=== PATIENT | male | born 1930 | race African-American/Black ===

== ENCOUNTER 2016-04-24 12:27 | Emergency (ER) | payer MEDICARE, OTHER ==
[~2016-04-24] VITALS: Ht 172.7 cm; Wt 49.4 kg
[~2016-04-24 12:27] MED LIST: AMLO10TA2 PO; BENZ2TAB5 PO; GLIP5TAB22 PO; HALO2TAB PO; HYDR-971 PO; INDA2.5T PO; SERT25TA PO
--- NOTE | 2016-04-24 14:05 | PHYS DOC ---
Past Medical History Past Medical History: Cancer, CVA, Diabetes-Type II, Hypertension, Schizophrenia Additional Past Medical Histor: prostate ca Past Surgical History: Hip Replacement Additional Past Surgical Histo: prostate Alcohol Use: Occasionally Drug Use: None Adult General Chief Complaint Chief Complaint: HYPERTENSION HPI HPI Patient is a 85 year old male who presents with hypertension. The patient is accompanied by a family member and silk spotter who states that the patient was having elevated blood pressures this morning about 200 systolic. Patient has history of CVA, schizophrenia, hypertension, and prostate cancer. The patient's silk spotter states that the patient has not been complaining of any symptoms. Due to high blood pressure, the silk spotter gave the patient an extra dose of his normal blood pressure medication. Patient's blood pressure is currently normal in the emergency department. The patient denies any complaints and the patient' s silk spotter states that the patient is at his baseline. The silk spotter is not able to identify what medication was given this morning by name. Review of Systems Review of Systems Constitutional: Denies fever or chills [] Eyes: Denies change in visual acuity, redness, or eye pain [] HENT: Denies nasal congestion or sore throat [] Respiratory: Denies cough or shortness of breath [] Cardiovascular: No additional information not addressed in HPI [] GI: Denies abdominal pain, nausea, vomiting, bloody stools or diarrhea [] : Denies dysuria or hematuria [] Musculoskeletal: Denies back pain or joint pain [] Integument: Denies rash or skin lesions [] Neurologic: Chronic left-sided hemiplegia, no new deficits [] Endocrine: Denies polyuria or polydipsia [] Allergies Allergies Allergies Coded Allergies Type Severity Reaction Last Updated Verified No Known Drug Allergies 09/24/14 No Physical Exam Physical Exam Constitutional: Alert, afebrile, appears in a chronically debilitated state. [] HENT: Normocephalic, atraumatic, bilateral external ears normal, oropharynx moist, adentulate, no oral exudates, nose normal. [] Eyes: PERRLA, EOMI, conjunctiva normal, no discharge. [] Neck: Normal range of motion, no tenderness, supple, no stridor. [] Cardiovascular:Heart rate regular rhythm, no murmur [] Lungs & Thorax: Bilateral breath sounds clear to auscultation [] Abdomen: Bowel sounds normal, soft, no tenderness, no masses, no pulsatile masses. [] Skin: Warm, dry, no erythema, no rash. [] Back: No tenderness, no CVA tenderness. [] Extremities: No tenderness, no cyanosis, no clubbing, ROM intact, no edema. [] Neurologic: Alert, oriented X 3, chronic left-sided hemiplegia. [] Current Patient Data Vital Signs Vital Signs Date Time Temp Pulse Resp B/P Pulse Ox O2 Delivery O2 Flow Rate FiO2 04/24/16 14:28 70 18 135/77 97 Room Air 04/24/16 13:08 98.9 98.9 EKG EKG Not performed [] Radiology/Procedures Radiology/Procedures Not performed [] Course & Med Decision Making Course & Med Decision Making Pertinent Labs and Imaging studies reviewed. (See chart for details) Patient currently asymptomatic. Since the patient's silk spotter is unable to identify the blood pressure medication and he gave this morning and the patient was found to be on amlodipine and indapamide, I recommended that the patient follow-up with his primary doctor in the next 2 days for reevaluation of the patient's blood pressure medications and possible need for increase in dosage or change. I did advise patient silk spotter to return to the emergency department with the patient if he does develop any significant symptoms with hypertension including headache, altered mental status, chest pain, shortness of breath, or any other worrisome symptoms. His silk spotter voiced understanding and in agreement with treatment plan. Dragon Disclaimer Dragon Disclaimer This electronic medical record was generated, in whole or in part, using a voice recognition dictation system. Departure Departure Impression: Primary Impression: Essential hypertension Disposition: 01 HOME, SELF-CARE Condition: STABLE Referrals: SABINE PATTERSON (PCP) Patient Instructions: Hypertension Additional Instructions: Follow-up with your primary doctor in 2 days. Return to emergency department for any worsening symptoms. GEORGE HALL MD Apr 24, 2016 14:05
[2016-04-24 14:28] VITALS: BP 135/77
== END 2016-04-24 14:33 | disposition home or self-care (01) ==
LOC: ER 12:27
DX: I10 Essential (primary) hypertension (principal); G81.94 Hemiplegia, unspecified affecting left nondominant side; F20.9 Schizophrenia, unspecified; E11.9 Type 2 diabetes mellitus without complications; Z86.73 Personal history of transient ischemic attack (TIA), and cerebral infarction without residual deficits
CPT/HCPCS: 99284

== ENCOUNTER 2016-10-04 16:32 | Inpatient (IN) | payer MEDICARE, OTHER ==
[2016-10-04] VITALS (17 sets, daily range): BP systolic 79–120; BP diastolic 35–72
[~2016-10-04] VITALS: Ht 170.2 cm; Wt 50.4 kg
[2016-10-04] MEDS ORDERED: NOREPINEPHRIN PREMIX 250 ML IV ONE (16:45)
[2016-10-04] MEDS ORDERED: IV NORMAL SALINE 1000ML BAG 1,000 ML IV ONE ×3 (16:45→17:30)
[2016-10-04] MEDS ORDERED: PIPERACILLIN/TAZOBACTAM 3.375 GM in IV NORMAL SALINE 50ML 50 ML IV ONE (16:45)
[2016-10-04 16:59] LABS: BASO % 0 % (0-3); EOS % 0 % (0-3); HEMATOCRIT 23.2 % (39.0-53.0); HEMOGLOBIN 7.3 g/dL (13.0-17.5); LYMPH # 0.4 x10^3/uL (1.0-4.8); LYMPH % 8 % (24-48); MEAN CORPUSCULAR HEMOGLOBIN 27 pg (25-35); MEAN CORPUSCULAR HGB CONC 31 g/dL (31-37); MEAN CORPUSCULAR VOLUME 88 fL (79-100); MONO % 2 % (0-9); NEUT % 90 % (31-73); PLATELET COUNT 244 x10^3/uL (140-400); RED BLOOD COUNT 2.64 x10^6/uL (4.30-5.70); RED CELL DISTRIBUTION WIDTH 14.5 % (11.5-14.5); WHITE BLOOD COUNT 5.4 x10^3/uL (4.0-11.0)
[2016-10-04] MEDS ORDERED: ALBUTEROL SULFATE 2.5 MG/3 ML NEBU. NEB ONE (17:00)
[2016-10-04] MEDS ORDERED: INSULIN REGULAR 100 UNIT/ML 10ML VIAL. IV ONE (17:00)
[2016-10-04] MEDS ORDERED: CALCIUM GLUCONATE 1,000 MG/10 ML VIAL. IV ONE (17:00)
[2016-10-04 17:06] LABS: INR 1.7 (0.8-1.1); PROTHROMBIN TIME PATIENT 18.7 SEC (11.7-14.0)
--- NOTE | 2016-10-04 17:12 | RAD ---
AP portable chest radiograph 10/04/2016 Clinical History: Unresponsive. An AP portable erect digital radiograph of the chest was obtained. Comparison study is dated 09/24/2014. The cardiac silhouette is mildly enlarged. The thoracic aorta is tortuous. Atherosclerotic calcification of the thoracic aorta is seen. Emphysematous changes are seen involving both lungs. A 5 mm calcified granuloma is seen involving the left lower lobe, unchanged. No acute pulmonary infiltrate is seen. No pleural effusion or pneumothorax is noted. Degenerative changes are seen involving the thoracic spine. Impression: No acute abnormality is seen.
[2016-10-04] MEDS ORDERED: PANTOPRAZOLE IV PUSH 40 MG VIAL. IVP ONE (17:15)
[2016-10-04 17:18] LABS: NUCLEATED RBC 2
[2016-10-04 17:22] LABS: PLT ESTIMATE ADEQUATE (ADEQUATE); SCHISTOCYTES OCC; TOXIC GRANULATION MOD; TOXIC VACUOLATION SLIGHT
[2016-10-04 17:25] LABS: BILIRUBIN,URINE NEGATIVE (NEG); GLUCOSE,URINE NEGATIVE (NEG); NITRITE,URINE POSITIVE (NEG); PROTEIN,URINE >=300 mg/dL (NEG-TRACE); UROBILINOGEN,URINE 0.2 mg/dL (0.2 mg/dL)
[2016-10-04 17:30] LABS: NEG OBC FOB NEG; POS OBC FOB POS
[2016-10-04] MEDS ORDERED: ONDANSETRON PF 4 MG/2 ML VIAL. IV PRN ×2 (17:30→18:41)
[2016-10-04] MEDS ORDERED: VANCOMYCIN 1GM IVPB FOR OMNI 250 ML IV ONE (17:30)
[2016-10-04 17:31] LABS: ETHANOL < 10 mg/dL (0-10)
[2016-10-04 17:31] LABS: BASE EXCESS COOX -23 mmol/L (-3-3); CARBON MONOXIDE 2.8 % (0.0-1.9); HCO3 COOX 6 mmol/L (21-28); METHEMOGLOBIN 0.3 % (0.0-1.9); OXYHEMOGLOBIN 96.1 %; PCO2 COOX 24 mmHg (35-46); PO2 COOX 342 mmHg (65-108); SAT O2 COOX 99 % (92-99); TOTAL HEMOGLOBIN 5.3 g/dL
[2016-10-04 17:34] LABS: ALBUMIN 1.8 g/dL (3.4-5.0); ALBUMIN/GLOBULIN RATIO 0.5 (1.0-1.7); CALCIUM 8.1 mg/dL (8.5-10.1); CREATININE 7.6 mg/dL (0.7-1.3); GFR 8.3; MAGNESIUM 3.1 mg/dL (1.8-2.4); TOTAL BILIRUBIN 0.4 mg/dL (0.2-1.0); TOTAL PROTEIN 5.4 g/dL (6.4-8.2)
[2016-10-04 17:35] LABS: BACTERIA,URINE MANY /HPF (0-FEW); RBC,URINE TNTC /HPF (0-2); SQUAMOUS EPITHELIAL CELL,UR OCC /LPF; WBC,URINE TNTC /HPF (0-4)
[2016-10-04 17:38] LABS: CORRECTED PCO2 COOX 20 mmHg; CORRECTED PH COOX 7.05; CORRECTED PO2 COOX 321 mmHg
[2016-10-04 17:38] LABS: POTASSIUM 7.4 mmol/L (3.5-5.1)
[2016-10-04] MEDS ORDERED: SODIUM BICARBONATE VIAL 150 MEQ in IV DEXTROSE 5% 1,000 ML IV ONE (17:45)
[2016-10-04 18:03] LABS: BARBITURATES NEG (NEG); BENZODIAZEPINES NEG (NEG); CANNABINOIDS NEG (NEG); COCAINE NEG (NEG); METHADONE NEG (NEG); OPIATES NEG (NEG); PHENCYCLIDINE NEG (NEG)
--- NOTE | 2016-10-04 18:18 | PHYS DOC ---
Past Medical History Past Medical History: Cancer, CVA, Diabetes-Type II, Hypertension, Schizophrenia Additional Past Medical Histor: prostate ca Past Surgical History: Hip Replacement Additional Past Surgical Histo: prostate Alcohol Use: Occasionally Drug Use: None Adult General Chief Complaint Chief Complaint: ALTERED MENTAL STATUS HPI HPI Patient is a 85 year old male presenting to the emergency department asked her STEMI however EKG does not appear consistent with STEMI for me spoke to the electrical equipment tester Dr. Aviles and this was canceled. Patient is unable to provide any history so history is obtained for her brother and he says the patient has prostate cancer and is usually interactive and oriented however over the past 2 days he has been doing worse and less active. Patient is breathing on his own however he he will not follow commands. He is cool to the touch and quite hypotensive with no peripheral pulses palpated. I spoke to the brother and he said he does not want the patient intubated but he would be okay with chest compressions if his heart stopped. Patient is chronically and acutely ill- appearing as he is thin frail. Review of Systems Review of Systems Unable to obtain due to mental status and medical condition Current Medications Current Medications Current Medications Medications (Trade) Dose Ordered Sig/Teagan Start Time Stop Time Status Last Admin Dose Admin Albuterol Sulfate (Ventolin Neb Soln) 2.5 mg 1X ONCE 10/04/16 17:00 10/04/16 17:01 DC 10/04/16 17:08 2.5 MG Calcium Gluconate (Calcium Gluconate) 1,000 mg 1X ONCE 10/04/16 17:00 10/04/16 17:01 DC 10/04/16 16:57 1,000 MG Insulin Human Regular (NovoLIN R VIAL) 10 unit 1X ONCE 10/04/16 17:00 10/04/16 17:01 DC 10/04/16 16:59 10 UNIT Norepinephrine Bitartrate 250 ml @ 0 mls/hr 1X ONCE 10/04/16 16:45 10/04/16 16:50 DC 10/04/16 16:55 1.9 MLS/HR Ondansetron HCl (Zofran) 4 mg PRN Q8HRS PRN 10/04/16 17:30 10/05/16 17:29 Pantoprazole Sodium (Protonix Vial) 40 mg 1X ONCE 10/04/16 17:15 10/04/16 17:16 DC 10/04/16 17:12 40 MG Piperacillin Sod/ Tazobactam Sod 3.375 gm/Sodium Chloride 50 ml @ 100 mls/hr 1X ONCE 10/04/16 16:45 10/04/16 17:14 DC 10/04/16 16:57 100 MLS/HR Sodium Chloride 1,000 ml @ 1,000 mls/hr 1X ONCE 10/04/16 17:30 10/04/16 18:29 10/04/16 17:30 1,000 MLS/HR Vancomycin HCl 250 ml @ 250 mls/hr 1X ONCE 10/04/16 17:30 10/04/16 18:29 Allergies Allergies Allergies Coded Allergies Type Severity Reaction Last Updated Verified No Known Drug Allergies 09/24/14 No Physical Exam Physical Exam Constitutional: Chronically and acutely ill-appearing HENT: Normocephalic, atraumatic Eyes: PERRLA Neck: Normal range of motion, no tenderness, supple, no stridor. [] Cardiovascular:Heart rate regular rhythm Lungs & Thorax: Bilateral breath sounds present Abdomen: Bowel sounds normal, soft, no tenderness, no masses, no pulsatile masses. Blood noted on rectal temp probe Skin: Cool and pale Back: No tenderness, no CVA tenderness. [] Extremities: Faint peripheral pulses] Neurologic: Alert and oriented X 0, appears to be moving extremities Current Patient Data Vital Signs Vital Signs Date Time Temp Pulse Resp B/P (MAP) Pulse Ox O2 Delivery O2 Flow Rate FiO2 10/04/16 17:09 NonRebreather Mask 10/04/16 16:33 91.8 72 24 88/39 (55) 99 91.8 Lab Values Laboratory Tests Test 10/04/16 16:36 10/04/16 16:45 10/04/16 17:11 10/04/16 17:30 White Blood Count 5.4 x10^3/uL (4.0-11.0) Red Blood Count 2.64 x10^6/uL (4.30-5.70) L Hemoglobin 7.3 g/dL (13.0-17.5) L Hematocrit 23.2 % (39.0-53.0) L Mean Corpuscular Volume 88 fL (79-100) Mean Corpuscular Hemoglobin 27 pg (25-35) Mean Corpuscular Hemoglobin Concent 31 g/dL (31-37) Red Cell Distribution Width 14.5 % (11.5-14.5) Platelet Count 244 x10^3/uL (140-400) Neutrophils (%) (Auto) 90 % (31-73) H Lymphocytes (%) (Auto) 8 % (24-48) L Monocytes (%) (Auto) 2 % (0-9) Eosinophils (%) (Auto) 0 % (0-3) Basophils (%) (Auto) 0 % (0-3) Neutrophils # (Auto) 4.9 x10^3uL (1.8-7.7) Lymphocytes # (Auto) 0.4 x10^3/uL (1.0-4.8) L Monocytes # (Auto) 0.1 x10^3/uL (0.0-1.1) Eosinophils # (Auto) 0.0 x10^3/uL (0.0-0.7) Basophils # (Auto) 0.0 x10^3/uL (0.0-0.2) Segmented Neutrophils % 75 % (35-66) H Band Neutrophils % 15 % (0-9) H Lymphocytes % 7 % (24-48) L Monocytes % 2 % (0-10) Metamyelocytes % 1 % (0-0) H Nucleated Red Blood Cells 2 Toxic Granulation Mod Toxic Vacuolation Slight Platelet Estimate Adequate (ADEQUATE) Schistocytes Occ Prothrombin Time 18.7 SEC (11.7-14.0) H Prothrombin Time INR 1.7 (0.8-1.1) H PTT 52 SEC (24-38) H Sodium Level 133 mmol/L (136-145) L Potassium Level 7.4 mmol/L (3.5-5.1) *H Chloride Level 100 mmol/L (98-107) Carbon Dioxide Level 10 mmol/L (21-32) *L Anion Gap 23 (6-14) H Blood Urea Nitrogen 208 mg/dL (8-26) H Creatinine 7.6 mg/dL (0.7-1.3) H Estimated GFR (Cockcroft-Gault) 8.3 BUN/Creatinine Ratio 27 (6-20) H Glucose Level 443 mg/dL (70-99) H Lactic Acid Level 6.2 mmol/L (0.4-2.0) *H Calcium Level 8.1 mg/dL (8.5-10.1) L Magnesium Level 3.1 mg/dL (1.8-2.4) H Total Bilirubin 0.4 mg/dL (0.2-1.0) Aspartate Amino Transferase (AST) 481 U/L (15-37) H Alanine Aminotransferase (ALT) 284 U/L (16-63) H Alkaline Phosphatase 95 U/L (46-116) Ammonia 193 mcmol/L (11-34) H Creatine Kinase 132 U/L (39-308) Troponin I Quantitative < 0.017 ng/mL (0.000-0.055) IW-Nbs-G-Type Natriuretic Peptide 508 pg/mL (0-449) H Total Protein 5.4 g/dL (6.4-8.2) L Albumin 1.8 g/dL (3.4-5.0) L Albumin/Globulin Ratio 0.5 (1.0-1.7) L Lipase 190 U/L (73-393) Thyroid Stimulating Hormone (TSH) 5.685 uIU/mL (0.358-3.74) H Salicylates Level < 2.8 mg/dL (2.8-20.0) L Salicylate Last Dose Date Salicylate Last Dose Time Acetaminophen Level 4.97 mcg/ml (10-30) L Acetaminophen Last Dose Date Acetaminophen Last Dose Time Ethyl Alcohol Level < 10 mg/dL (0-10) Stool Occult Blood Positive (NEG) Urine Collection Type U cath Urine Color Brown Urine Clarity Turbid Urine pH 8.0 Urine Specific [place] 1.020 Urine Protein >=300 mg/dL (NEG-TRACE) Urine Glucose (UA) Negative mg/dL (NEG) Urine Ketones (Stick) Trace mg/dL (NEG) Urine Blood Large (NEG) Urine Nitrite Positive (NEG) Urine Bilirubin Negative (NEG) Urine Urobilinogen Dipstick 0.2 mg/dL (0.2 mg/dL) Urine Leukocyte Esterase Large (NEG) Urine RBC Tntc /HPF (0-2) Urine WBC Tntc /HPF (0-4) Urine Squamous Epithelial Cells Occ /LPF Urine Bacteria Many /HPF (0-FEW) Urine Mucus Marked /LPF Urine Opiates Screen Neg (NEG) Urine Methadone Screen Neg (NEG) Urine Barbiturates Neg (NEG) Urine Phencyclidine Screen Neg (NEG) Urine Amphetamine/Methamphetamine Neg (NEG) Urine Benzodiazepines Screen Neg (NEG) Urine Cocaine Screen Neg (NEG) Urine Cannabinoids Screen Neg (NEG) Urine Ethyl Alcohol Neg (NEG) O2 Saturation 99 % (92-99) Arterial Blood pH 7.00 (7.35-7.45) *L Arterial Blood pH (Temp corrected) 7.05 Arterial Blood pCO2 at Patient Temp 24 mmHg (35-46) L Arterial Blood pCO2 (Temp correct) 20 mmHg Arterial Blood pO2 at Patient Temp 342 mmHg (65-108) H Arterial Blood pO2 (Temp corrected) 321 mmHg Arterial Blood HCO3 6 mmol/L (21-28) L Arterial Blood Base Excess -23 mmol/L (-3-3) L Oxyhemoglobin 96.1 % Methemoglobin 0.3 % (0.0-1.9) Carbon Monoxide, Quantitative 2.8 % (0.0-1.9) H FiO2 100.0 Laboratory Tests 10/04/16 16:36 Laboratory Tests 10/04/16 16:36 EKG EKG Sinus cardia at 52 bpm with peaked T waves in leads V3 and V4 with slightly widened QRS. No ST elevation consecutive leads. Radiology/Procedures Radiology/Procedures AP portable chest radiograph 10/04/2016 Clinical History: Unresponsive. An AP portable erect digital radiograph of the chest was obtained. Comparison study is dated 09/24/2014. The cardiac silhouette is mildly enlarged. The thoracic aorta is tortuous. Atherosclerotic calcification of the thoracic aorta is seen. Emphysematous changes are seen involving both lungs. A 5 mm calcified granuloma is seen involving the left lower lobe, unchanged. No acute pulmonary infiltrate is seen. No pleural effusion or pneumothorax is noted. Degenerative changes are seen involving the thoracic spine. Impression: No acute abnormality is seen. DICTATED and SIGNED BY: RICHI REYNA MD DATE: 10/04/16 2381 Course & Med Decision Making Course & Med Decision Making Patient is very ill and requiring multiple interventions and his prognosis is quite poor and this was communicated to his brother. He says that he makes medical decisions for the patient. Patient was given multiple liters of fluid in addition to broad-spectrum antibiotics and blood is ordered. He was also given calcium for his hyperkalemia in addition to insulin and bicarbonate containing fluids. We will respect wishes and not intubated this time but he is on norepinephrine for his blood pressure which did help moderately. I spoke to the abrasive grader on-call and he agreed with admission but will defer dialysis at this time. Patient admitted in critical condition. Critical care time of 50 minutes. Dragon Disclaimer Dragon Disclaimer This electronic medical record was generated, in whole or in part, using a voice recognition dictation system. Departure Departure Impression: Primary Impression: Renal failure Additional Impressions: Hyperkalemia Septic shock Encephalopathy acute GI bleed Anemia Disposition: ADMITTED INPATIENT Admitting Physician: Brandy Flowers Condition: CRITICAL Referrals: SABINE PATTERSON (PCP) Problem Qualifiers KB BAKER DO Oct 04, 2016 18:18
--- NOTE | 2016-10-04 18:36 | RAD ---
CT head without intravenous contrast History: Found unresponsive at home. Last seen 2 days ago. Comparison: CT head December 08, 2015. Technique: Axial images are obtained of the head from the skull base through the vertex without IV contrast. Exposure: One or more of the following individualized dose reduction techniques were utilized for this examination: 1. Automated exposure control 2. Adjustment of the mA and/or kV according to patient size 3. Use of iterative reconstruction technique Findings: The ventricles are appropriate in size, shape, and location for the patient's age. No obvious intracranial mass, mass-effect, midline shift, hemorrhage or obvious acute infarction is identified. Basilar cisterns are patent. Patchy, nonspecific white matter low attenuation is seen, probably from chronic microvascular ischemic disease. Bone windows demonstrate no acute calvarial abnormality. The visualized paranasal sinuses appear clear. Old right medial orbital wall fracture is seen. Opacification of a left ethmoid air cell. Impression: 1. No acute intracranial process. Please note that CT can be relatively insensitive to acute ischemic infarction for up to 24 hours after symptom onset. 2. Nonspecific white matter changes, probably from chronic microvascular ischemic disease. Electronically signed by: Angel Ha MD (10/04/2016 6:33 PM)
--- NOTE | 2016-10-04 18:41 | ACF ---
Admission Forms Criteria RENAL FAILURE, ACUTE Clinical Indications for Admission to Inpatient Care ( Place 'X' for any and all applicable criteria): Admission is indicated for ALL (if I & II) or III of the following [A](2)(3)(4)( 5)(6)(7): [X ]I. Acute renal failure as indicated by ANY ONE of the following: [ ]a) A 3-fold rise in serum creatinine from baseline [X ]b) Serum creatinine greater than 4 mg/dL (354 micromoles/L) with an acute rise greater than 0.5 mg/dL (44.2 micromoles/L) [ ]c) Reduction of more than 75% in estimated glomerular filtration rate from baseline [ ]d) Estimated glomerular filtration rate less than 35 mL/min/1.73m2 (0.59mL/sec/1.73m2)in a child up to 18 years of age [ ]e) Anuria indicated by ALL of the following: [ ]i) Adequate volume status [ ]ii) Cessation of urine output indicated by ANY ONE of the following: [ ]1) Urine output less than 0.3 mL/kg/hr for 24 hours [ ]2) Anuria (urine output less than 0.1 mL/kg/ hr) for 12 hours [X ] II. Renal failure cannot be managed in an outpatient setting or observational care setting as indicating by ANY ONE of the following: [ ]a) Altered mental status that is severe or persistent [ ]b) Volume overload or Respiratory distress (eg, clinically significant pulmonary edema) that is severe or persistent [ ]c) Cardiac arrhythmias of immediate concern [ ]d) Hemodynamic instability [X ]e) Clinically significant electrolyte abnormality that requires inpatient care (eg, hyperkalemia with severe ECG findings)[B] [ ]f) Clinically significant metabolic abnormality (eg, acidosis) that is severe or persistent [ ]g) Acute treatment of renal failure (eg, renal replacement therapy) not feasible or appropriate in observational care setting [ ]h) Clinical situation too unstable or uncertain (eg, inadequate urine output, ongoing decline in renal function, etiology unclear) [ ]i) Necessary support and caregiver ability to comply with outpatient treatment cannot be arranged in observation care timeframe (eg, within 24 hours) [ ]j) Other significant finding or clinical condition judged not to be within scope of observation care [ ]III.General contraindications and/or Inappropriate clinical situations for Observational Care in patients with Acute Renal Failure, when ANY ONE of the following is required: [ ]a) Prediction of prolongation of LOS based on ANY ONE of the following may be considered as a contraindication for observational care 2, 3, 4, 5, 6, 7, 8 , 9, 10, 11 [ ]i) Age > 65 yrs. [ ]ii) Patient arriving by ambulance [ ]iii) Patient with high acuity [ ]iv) Patient requiring vital sign monitoring [ ]v) Patient on IV medication [ ]b) Systolic blood pressures 180mmHg 3,12 [ ]c) Patient with altered mental status including delirium and other alteration of consciousness, (3) [ ]d) Patient whose discharge disposition will be to a halfway home or rehabilitation home should not be managed in Emergency Department Observation Unit. CMS rule requires 3 days hospital stay before such placement.3,13 [ ]e) Patient with failure to thrive due to broad array of etiologies 3, 16,17 [ ]f) Inability to ambulate 3,14 Extended stay beyond goal length of stay may be needed for(13) [ ]a) Continuing uremic complications [ ]b) Care for comorbidities [ ]c) acute renal failure [ ]d) Need for dialysis The original [employer] content created by [employer] has been revised. The portions of the content which have been revised are identified through the use of italic text or in bold, and [facility] has neither reviewed nor approved the modified material. All other unmodified content is copyright [facility] [facility]. Please see references footnoted in the original [facility] [facility] edition 2016 Admission Criteria Met?: Yes SHANNEN ALLEN Oct 04, 2016 18:41
[2016-10-04] MEDS ORDERED: ACETAMINOPHEN 500 MG TABLET PO PRN (18:45)
--- NOTE | 2016-10-04 19:00 | PDOC1 ---
History and Physical Date of Admission Date of Admission DATE: 10/04/16 TIME: 18:45 Identification/Chief Complaint Chief Complaint unresponsiveness Problems: Source Source: Caregiver, Chart review History of Present Illness History of Present Illness 85 y.o AA male, no PCP, has been less responsive for the past 2 days now per brothers acct. Pt does not walk, too weak, cachectic, Dec PO,. Lives with the brother who is not the best historian himself, Brought via EMS LAbs show ph 7.2, K 7 , creatinine 7, no urine output yet and quiroz being inserted I have seen together with ER MD in room 1 with the brother. Rest of labs still pending, EKG initially was thought to be STEMI, but not - only bec of peaked T waves from severe hyperkalemia NO reports of stool/diarrhea Depends (diapers) on and when changed, looks very old - has been there for days , very unkempt. Pt face mask, open mouth, mouth breathing, looks at me when i call his name but non verbal mostly,. HYPOTENSIVE despite iVF boluses,critically ill I did explain findings with brother and discussed code status and goals of care - Pt has very poor QOL to start with. I did recommend DNR/DNI. Brother who claims he is the decision maker, agreed to DNI but wants CPR, discussed this is not a common decision,. They will think about it, SOme blood per rectum too appreciated at ER, Hgb 7 coags pending MCV indices pending DId get insulin etc as temporizing measure from er for the hyperkalemia Just now, AGAP 3, bicarb 10. UA is UTI, CXR and CT head unimpressive Started on broad spectrum at ER Past Medical History Cardiovascular: HTN Pulmonary: COPD CENTRAL NERVOUS SYSTEM: CVA GI: No pertinent hx Heme/Onc: No pertinent hx Hepatobiliary: No pertinent hx Psych: No pertinent hx Musculoskeletal: Muscle atrophy Rheumatologic: No pertinent hx Infectious disease: No pertinent hx Renal/: No pertinent hx Endocrine: Diabetes Past Surgical History Past Surgical History: Total hip replacement Family History Family History: Heart Disease Social History Smoke: No ALCOHOL: none Drugs: None Current Problem List Problem List Problems Medical Problems: (1) Anemia Status: Acute (2) Encephalopathy acute Status: Acute (3) GI bleed Status: Acute (4) Hyperkalemia Status: Acute (5) Renal failure Status: Acute (6) Septic shock Status: Acute Problems: Current Medications Current Medications Current Medications Sodium Chloride 1,000 ml @ 1,000 mls/hr 1X ONCE IV Last administered on 16:55; Start 10/04/16 at 16:45; Stop 10/04/16 at 17:44; Status DC Norepinephrine Bitartrate 250 ml @ 0 mls/hr 1X ONCE IV Last administered on 16:55; Start 10/04/16 at 16:45; Stop 10/04/16 at 16:50; Status DC Piperacillin Sod/ Tazobactam Sod 3.375 gm/Sodium Chloride 50 ml @ 100 mls/hr 1X ONCE IV Last administered on 10/04/16 16:57; Start 10/04/16 at 16:45; Stop 10/04/16 at 17:14; Status DC Vancomycin HCl 250 ml @ 250 mls/hr 1X ONCE IV ; Start 10/04/16 at 17:30; Stop 10/04/16 at 18:29; Status DC Albuterol Sulfate (Ventolin Neb Soln) 2.5 mg 1X ONCE NEB Last administered on 10/04/16 17:08; Start 10/04/16 at 17:00; Stop 10/04/16 at 17:01; Status DC Calcium Gluconate (Calcium Gluconate) 1,000 mg 1X ONCE IV Last administered on 10/04/16 16:57; Start 10/04/16 at 17:00; Stop 10/04/16 at 17:01; Status DC Insulin Human Regular (NovoLIN R VIAL) 10 unit 1X ONCE IV Last administered on 10/04/16 16:59; Start 10/04/16 at 17:00; Stop 10/04/16 at 17:01; Status DC Sodium Chloride 1,000 ml @ 1,000 mls/hr 1X ONCE IV Last administered on 17:09; Start 10/04/16 at 17:15; Stop 10/04/16 at 18:14; Status DC Pantoprazole Sodium (Protonix Vial) 40 mg 1X ONCE IVP Last administered on 17:12; Start 10/04/16 at 17:15; Stop 10/04/16 at 17:16; Status DC Sodium Chloride 1,000 ml @ 1,000 mls/hr 1X ONCE IV Last administered on 17:30; Start 10/04/16 at 17:30; Stop 10/04/16 at 18:29; Status DC Sodium Bicarbonate 150 meq/Dextrose 1,150 ml @ 125 mls/hr 1X ONCE IV Last administered on 10/04/16 17:53; Start 10/04/16 at 17:45; Stop 10/05/16 at 02:56 Ondansetron HCl (Zofran) 4 mg PRN Q8HRS PRN IV NAUSEA/VOMITING; Start 10/04/16 at 17:30; Stop 10/05/16 at 17:29 Active Scripts Active [place] 5-325 Tablet (Acetaminophen/Hydrocodone Bitart) 1 Each Tablet 1 Tab PO PRN Q6HRS PRN Reported Indapamide 2.5 Mg Tablet 1 Tab PO DAILY Amlodipine Besylate 10 Mg Tablet 1 Tab PO DAILY Haloperidol 2 Mg Tablet 1 Tab PO QHS Glipizide Er (Glipizide) 5 Mg Tab.er.24 1 Tab PO DAILY Benztropine Mesylate 2 Mg Tablet 2 Mg PO DAILY Zoloft (Sertraline Hcl) 25 Mg Tablet 1 Tab PO DAILY Allergies Allergies: Coded Allergies: No Known Drug Allergies (Unverified , 09/24/14) ROS Review of System non verbal Physical Exam General: moderate distress, Other (lethargic) HEENT: Atraumatic, PERRLA, Other (very dry mucosa) Lungs: Clear to auscultation, Normal air movement Heart: S1S2, RRR, no gallops, no murmurs, other Cardiovascular: S1, S2 Abdomen: Normal bowel sounds, Soft, No tenderness, No hepatosplenomegaly, No masses Male Genitals Exam: normal genitalia, normal prostate Rectal Exam: not examined PELVIC: Nml ext vulva Extremities: No clubbing, No cyanosis, No edema, Normal pulses, No tenderness/ swelling Skin: No rashes, No breakdown, No significant lesion Vitals Vitals Vital Signs Date Time Temp Pulse Resp B/P (MAP) Pulse Ox O2 Delivery O2 Flow Rate FiO2 10/04/16 17:09 NonRebreather Mask 10/04/16 16:33 91.8 72 24 88/39 (55) 99 91.8 Labs Labs Laboratory Tests Test 10/04/16 16:36 10/04/16 16:45 10/04/16 17:11 10/04/16 17:17 White Blood Count 5.4 x10^3/uL (4.0-11.0) Red Blood Count 2.64 x10^6/uL (4.30-5.70) Hemoglobin 7.3 g/dL (13.0-17.5) Hematocrit 23.2 % (39.0-53.0) Mean Corpuscular Volume 88 fL (79-100) Mean Corpuscular Hemoglobin 27 pg (25-35) Mean Corpuscular Hemoglobin Concent 31 g/dL (31-37) Red Cell Distribution Width 14.5 % (11.5-14.5) Platelet Count 244 x10^3/uL (140-400) Neutrophils (%) (Auto) 90 % (31-73) Lymphocytes (%) (Auto) 8 % (24-48) Monocytes (%) (Auto) 2 % (0-9) Eosinophils (%) (Auto) 0 % (0-3) Basophils (%) (Auto) 0 % (0-3) Neutrophils # (Auto) 4.9 x10^3uL (1.8-7.7) Lymphocytes # (Auto) 0.4 x10^3/uL (1.0-4.8) Monocytes # (Auto) 0.1 x10^3/uL (0.0-1.1) Eosinophils # (Auto) 0.0 x10^3/uL (0.0-0.7) Basophils # (Auto) 0.0 x10^3/uL (0.0-0.2) Segmented Neutrophils % 75 % (35-66) Band Neutrophils % 15 % (0-9) Lymphocytes % 7 % (24-48) Monocytes % 2 % (0-10) Metamyelocytes % 1 % (0-0) Nucleated Red Blood Cells 2 Toxic Granulation Mod Toxic Vacuolation Slight Platelet Estimate Adequate (ADEQUATE) Schistocytes Occ Prothrombin Time 18.7 SEC (11.7-14.0) Prothromb Time International Ratio 1.7 (0.8-1.1) Activated Partial Thromboplast Time 52 SEC (24-38) Sodium Level 133 mmol/L (136-145) Potassium Level 7.4 mmol/L (3.5-5.1) Chloride Level 100 mmol/L (98-107) Carbon Dioxide Level 10 mmol/L (21-32) Anion Gap 23 (6-14) Blood Urea Nitrogen 208 mg/dL (8-26) Creatinine 7.6 mg/dL (0.7-1.3) Estimated GFR (Cockcroft-Gault) 8.3 BUN/Creatinine Ratio 27 (6-20) Glucose Level 443 mg/dL (70-99) Lactic Acid Level 6.2 mmol/L (0.4-2.0) Calcium Level 8.1 mg/dL (8.5-10.1) Magnesium Level 3.1 mg/dL (1.8-2.4) Total Bilirubin 0.4 mg/dL (0.2-1.0) Aspartate Amino Transf (AST/SGOT) 481 U/L (15-37) Alanine Aminotransferase (ALT/SGPT) 284 U/L (16-63) Alkaline Phosphatase 95 U/L (46-116) Ammonia 193 mcmol/L (11-34) Creatine Kinase 132 U/L (39-308) Troponin I Quantitative < 0.017 ng/mL (0.000-0.055) EV-Qma-D-Type Natriuretic Peptide 508 pg/mL (0-449) Total Protein 5.4 g/dL (6.4-8.2) Albumin 1.8 g/dL (3.4-5.0) Albumin/Globulin Ratio 0.5 (1.0-1.7) Lipase 190 U/L (73-393) Thyroid Stimulating Hormone (TSH) 5.685 uIU/mL (0.358-3.74) Salicylates Level < 2.8 mg/dL (2.8-20.0) Salicylate Last Dose Date Salicylate Last Dose Time Acetaminophen Level 4.97 mcg/ml (10-30) Acetaminophen Last Dose Date Acetaminophen Last Dose Time Ethyl Alcohol Level < 10 mg/dL (0-10) Stool Occult Blood Positive (NEG) Urine Collection Type U cath Urine Color Brown Urine Clarity Turbid Urine pH 8.0 Urine Specific [place] 1.020 Urine Protein >=300 mg/dL (NEG-TRACE) Urine Glucose (UA) Negative mg/dL (NEG) Urine Ketones (Stick) Trace mg/dL (NEG) Urine Blood Large (NEG) Urine Nitrite Positive (NEG) Urine Bilirubin Negative (NEG) Urine Urobilinogen Dipstick 0.2 mg/dL (0.2 mg/dL) Urine Leukocyte Esterase Large (NEG) Urine RBC Tntc /HPF (0-2) Urine WBC Tntc /HPF (0-4) Urine Squamous Epithelial Cells Occ /LPF Urine Bacteria Many /HPF (0-FEW) Urine Mucus Marked /LPF Urine Opiates Screen Neg (NEG) Urine Methadone Screen Neg (NEG) Urine Barbiturates Neg (NEG) Urine Phencyclidine Screen Neg (NEG) Urine Amphetamine/Methamphetamine Neg (NEG) Urine Benzodiazepines Screen Neg (NEG) Urine Cocaine Screen Neg (NEG) Urine Cannabinoids Screen Neg (NEG) Urine Ethyl Alcohol Neg (NEG) Glucose (Fingerstick) 195 mg/dL (70-99) Test 10/04/16 17:30 10/04/16 17:42 O2 Saturation 99 % (92-99) Arterial Blood pH 7.00 (7.35-7.45) Arterial Blood pH (Temp corrected) 7.05 Arterial Blood pCO2 at Patient Temp 24 mmHg (35-46) Arterial Blood pCO2 (Temp correct) 20 mmHg Arterial Blood pO2 at Patient Temp 342 mmHg (65-108) Arterial Blood pO2 (Temp corrected) 321 mmHg Arterial Blood HCO3 6 mmol/L (21-28) Arterial Blood Base Excess -23 mmol/L (-3-3) Oxyhemoglobin 96.1 % Methemoglobin 0.3 % (0.0-1.9) Carbon Monoxide, Quantitative 2.8 % (0.0-1.9) FiO2 100.0 Glucose (Fingerstick) 91 mg/dL (70-99) Laboratory Tests Test 10/04/16 16:36 10/04/16 16:45 10/04/16 17:11 10/04/16 17:17 White Blood Count 5.4 x10^3/uL (4.0-11.0) Red Blood Count 2.64 x10^6/uL (4.30-5.70) Hemoglobin 7.3 g/dL (13.0-17.5) Hematocrit 23.2 % (39.0-53.0) Mean Corpuscular Volume 88 fL (79-100) Mean Corpuscular Hemoglobin 27 pg (25-35) Mean Corpuscular Hemoglobin Concent 31 g/dL (31-37) Red Cell Distribution Width 14.5 % (11.5-14.5) Platelet Count 244 x10^3/uL (140-400) Neutrophils (%) (Auto) 90 % (31-73) Lymphocytes (%) (Auto) 8 % (24-48) Monocytes (%) (Auto) 2 % (0-9) Eosinophils (%) (Auto) 0 % (0-3) Basophils (%) (Auto) 0 % (0-3) Neutrophils # (Auto) 4.9 x10^3uL (1.8-7.7) Lymphocytes # (Auto) 0.4 x10^3/uL (1.0-4.8) Monocytes # (Auto) 0.1 x10^3/uL (0.0-1.1) Eosinophils # (Auto) 0.0 x10^3/uL (0.0-0.7) Basophils # (Auto) 0.0 x10^3/uL (0.0-0.2) Segmented Neutrophils % 75 % (35-66) Band Neutrophils % 15 % (0-9) Lymphocytes % 7 % (24-48) Monocytes % 2 % (0-10) Metamyelocytes % 1 % (0-0) Nucleated Red Blood Cells 2 Toxic Granulation Mod Toxic Vacuolation Slight Platelet Estimate Adequate (ADEQUATE) Schistocytes Occ Prothrombin Time 18.7 SEC (11.7-14.0) Prothromb Time International Ratio 1.7 (0.8-1.1) Activated Partial Thromboplast Time 52 SEC (24-38) Sodium Level 133 mmol/L (136-145) Potassium Level 7.4 mmol/L (3.5-5.1) Chloride Level 100 mmol/L (98-107) Carbon Dioxide Level 10 mmol/L (21-32) Anion Gap 23 (6-14) Blood Urea Nitrogen 208 mg/dL (8-26) Creatinine 7.6 mg/dL (0.7-1.3) Estimated GFR (Cockcroft-Gault) 8.3 BUN/Creatinine Ratio 27 (6-20) Glucose Level 443 mg/dL (70-99) Lactic Acid Level 6.2 mmol/L (0.4-2.0) Calcium Level 8.1 mg/dL (8.5-10.1) Magnesium Level 3.1 mg/dL (1.8-2.4) Total Bilirubin 0.4 mg/dL (0.2-1.0) Aspartate Amino Transf (AST/SGOT) 481 U/L (15-37) Alanine Aminotransferase (ALT/SGPT) 284 U/L (16-63) Alkaline Phosphatase 95 U/L (46-116) Ammonia 193 mcmol/L (11-34) Creatine Kinase 132 U/L (39-308) Troponin I Quantitative < 0.017 ng/mL (0.000-0.055) VK-Swc-M-Type Natriuretic Peptide 508 pg/mL (0-449) Total Protein 5.4 g/dL (6.4-8.2) Albumin 1.8 g/dL (3.4-5.0) Albumin/Globulin Ratio 0.5 (1.0-1.7) Lipase 190 U/L (73-393) Thyroid Stimulating Hormone (TSH) 5.685 uIU/mL (0.358-3.74) Salicylates Level < 2.8 mg/dL (2.8-20.0) Salicylate Last Dose Date Salicylate Last Dose Time Acetaminophen Level 4.97 mcg/ml (10-30) Acetaminophen Last Dose Date Acetaminophen Last Dose Time Ethyl Alcohol Level < 10 mg/dL (0-10) Stool Occult Blood Positive (NEG) Urine Collection Type U cath Urine Color Brown Urine Clarity Turbid Urine pH 8.0 Urine Specific [place] 1.020 Urine Protein >=300 mg/dL (NEG-TRACE) Urine Glucose (UA) Negative mg/dL (NEG) Urine Ketones (Stick) Trace mg/dL (NEG) Urine Blood Large (NEG) Urine Nitrite Positive (NEG) Urine Bilirubin Negative (NEG) Urine Urobilinogen Dipstick 0.2 mg/dL (0.2 mg/dL) Urine Leukocyte Esterase Large (NEG) Urine RBC Tntc /HPF (0-2) Urine WBC Tntc /HPF (0-4) Urine Squamous Epithelial Cells Occ /LPF Urine Bacteria Many /HPF (0-FEW) Urine Mucus Marked /LPF Urine Opiates Screen Neg (NEG) Urine Methadone Screen Neg (NEG) Urine Barbiturates Neg (NEG) Urine Phencyclidine Screen Neg (NEG) Urine Amphetamine/Methamphetamine Neg (NEG) Urine Benzodiazepines Screen Neg (NEG) Urine Cocaine Screen Neg (NEG) Urine Cannabinoids Screen Neg (NEG) Urine Ethyl Alcohol Neg (NEG) Glucose (Fingerstick) 195 mg/dL (70-99) Test 10/04/16 17:30 10/04/16 17:42 O2 Saturation 99 % (92-99) Arterial Blood pH 7.00 (7.35-7.45) Arterial Blood pH (Temp corrected) 7.05 Arterial Blood pCO2 at Patient Temp 24 mmHg (35-46) Arterial Blood pCO2 (Temp correct) 20 mmHg Arterial Blood pO2 at Patient Temp 342 mmHg (65-108) Arterial Blood pO2 (Temp corrected) 321 mmHg Arterial Blood HCO3 6 mmol/L (21-28) Arterial Blood Base Excess -23 mmol/L (-3-3) Oxyhemoglobin 96.1 % Methemoglobin 0.3 % (0.0-1.9) Carbon Monoxide, Quantitative 2.8 % (0.0-1.9) FiO2 100.0 Glucose (Fingerstick) 91 mg/dL (70-99) VTE Prophylaxis Ordered VTE Prophylaxis Devices: Yes VTE Pharmacological Prophylaxi: Yes Assessment/Plan Assessment/Plan 1. HYPOTENSIVE SHOCK needing pressors 2. AGAP metabolic acidosis, WILLIAM severe 3. HYperkalemia with EKG changes 4. MEtabolic encephalopathy sec to above 5. BRBPR 6. Diminished responsiveness 7, UTI 8. Severe malnourishment/cachexia 9. 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 Elevated TSH (5) in a critically ill 11. Hypothermia PLAn: Admit ICU AGGRESSIVE IVF BIcarb Temporizing measures for hyperkal K will get better with IVF Blood typed and cross matched for the FOBT positive Monitor H.H PPI iV SCds only Can consult GI Renal consult for WILLIAM and creat 7 with oliguria - Critical care consult - critcially ill NEeds palliative re goals of care Turn q2 Supportive meds Pressors if needed - (highly likely) Antibiotics for UTI PArtial code CC 50 mins Seen at ER 1 Dw ER FABIANA Koch MD Oct 04, 2016 19:00
[2016-10-04] MEDS ORDERED: PIP/TAZO PER PHARMACY MC PRN (19:15)
[2016-10-04] MEDS ORDERED: VANCOMYCIN 1 GM in IV NORMAL SALINE 250ML 250 ML IV ONE (21:30)
[2016-10-04] MEDS ORDERED: HEPARIN PF for SUB-Q USE 5,000 UNIT/0.5 ML VIAL. SQ SCH (22:00)
[2016-10-04] MEDS: NOREPINEPHRIN PREMIX 250 ML IV PRN (22:24)
[2016-10-04] MEDS: IV NORMAL SALINE 1000ML BAG 1,000 ML IV SCH (22:34)
[2016-10-04] MEDS: PIPERACILLIN/TAZOBACTAM 2.25 GM in IV NORMAL SALINE 50ML 50 ML IV SCH (22:34)
[2016-10-04 22:52] LABS: FREE T4 1.15 ng/dL (0.76-1.46)
[2016-10-05] VITALS (45 sets, daily range): BP systolic 88–148; BP diastolic 54–80
[2016-10-05] MEDS: NOREPINEPHRIN PREMIX 250 ML IV PRN ×2 (02:57→09:28)
[2016-10-05] MEDS: IV NORMAL SALINE 1000ML BAG 1,000 ML IV SCH ×2 (03:00→10:59)
[2016-10-05 05:42] LABS: BASO % 0 % (0-3); EOS % 0 % (0-3); HEMATOCRIT 38.3 % (39.0-53.0); LYMPH # 0.1 x10^3/uL (1.0-4.8); LYMPH % 1 % (24-48); MEAN CORPUSCULAR HEMOGLOBIN 29 pg (25-35); MEAN CORPUSCULAR HGB CONC 34 g/dL (31-37); MEAN CORPUSCULAR VOLUME 84 fL (79-100); MONO % 3 % (0-9); NEUT % 96 % (31-73); PLATELET COUNT 234 x10^3/uL (140-400); RED BLOOD COUNT 4.53 x10^6/uL (4.30-5.70); RED CELL DISTRIBUTION WIDTH 14.6 % (11.5-14.5); WHITE BLOOD COUNT 10.9 x10^3/uL (4.0-11.0)
[2016-10-05 05:53] LABS: CALCIUM 7.4 mg/dL (8.5-10.1); CREATININE 5.8 mg/dL (0.7-1.3); GFR 11.3; POTASSIUM 5.2 mmol/L (3.5-5.1)
[2016-10-05] MEDS: PIPERACILLIN/TAZOBACTAM 2.25 GM in IV NORMAL SALINE 50ML 50 ML IV SCH ×3 (06:22→23:36)
[2016-10-05] MEDS: PANTOPRAZOLE IV PUSH 40 MG VIAL. IVP SCH (07:28)
[2016-10-05 08:40] LABS: PLT ESTIMATE ADEQUATE (ADEQUATE)
[2016-10-05 08:46] LABS: FIO2 ABG 21; HCO3 ABG 12 mmol/L (21-28); PCO2 ABG 21 mmHg (35-46); PH ABG 7.35 (7.35-7.45); PO2 ABG 85 mmHg (65-108); SAT O2 ABG 95 % (92-99)
--- NOTE | 2016-10-05 09:22 | EKG ---
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
--- NOTE | 2016-10-05 09:50 | PDOC ---
Provider Note Provider Note dictated SOWMYA SHEPARD MD Oct 05, 2016 09:50
[2016-10-05] MEDS ORDERED: LACTULOSE 20 GM/30 ML SOLUTION. PO SCH (10:00)
--- NOTE | 2016-10-05 10:05 | PDOC2 ---
GI CONSULT Reason For Consult: GI Bleed HPI: HPI: 85 y/o male brought to ER for AMS. No family present this morning, history from chart and ICU. Multiple lab abnormalities as below, including Hgb 7.3 ( now 13 after transfusion), INR 1.7, elevated TSH, lactic acid 6.4 (now 1.9), K+ 7.4 (now 5.2), AST 487, ALT 284, BNP 508, [id number], Cr 7.6 (now 5.8), BUN 208 (now 180), hemoccult positive stool. Per IPC note, blood per rectum in ER. Per RN, had a rectal tube last night, pt pushed out, greenish "bloody-smelling" stool noted. [employer] and PC consulted along w/ nephrology and pulmonology. PMH: PMH: per chart - HTN, COPD, CVA, DM, left hip replacement, prostate cancer, ventral hernia repair FH: Family History: No pertinent hx Social History: Smoke: No ALCOHOL: none Drugs: None ROS: Unable to obtain. Vitals: Vitals: Vital Signs Date Time Temp Pulse Resp B/P (MAP) Pulse Ox O2 Delivery O2 Flow Rate FiO2 10/05/16 09:45 97.3 95 18 122/63 (82) 100 Room Air 97.3 10/05/16 05:30 2.0 Labs: Labs: Laboratory Tests Test 10/04/16 16:36 10/04/16 16:38 10/04/16 16:45 10/04/16 17:11 White Blood Count 5.4 x10^3/uL (4.0-11.0) Red Blood Count 2.64 x10^6/uL (4.30-5.70) Hemoglobin 7.3 g/dL (13.0-17.5) Hematocrit 23.2 % (39.0-53.0) Mean Corpuscular Volume 88 fL (79-100) Mean Corpuscular Hemoglobin 27 pg (25-35) Mean Corpuscular Hemoglobin Concent 31 g/dL (31-37) Red Cell Distribution Width 14.5 % (11.5-14.5) Platelet Count 244 x10^3/uL (140-400) Neutrophils (%) (Auto) 90 % (31-73) Lymphocytes (%) (Auto) 8 % (24-48) Monocytes (%) (Auto) 2 % (0-9) Eosinophils (%) (Auto) 0 % (0-3) Basophils (%) (Auto) 0 % (0-3) Neutrophils # (Auto) 4.9 x10^3uL (1.8-7.7) Lymphocytes # (Auto) 0.4 x10^3/uL (1.0-4.8) Monocytes # (Auto) 0.1 x10^3/uL (0.0-1.1) Eosinophils # (Auto) 0.0 x10^3/uL (0.0-0.7) Basophils # (Auto) 0.0 x10^3/uL (0.0-0.2) Segmented Neutrophils % 75 % (35-66) Band Neutrophils % 15 % (0-9) Lymphocytes % 7 % (24-48) Monocytes % 2 % (0-10) Metamyelocytes % 1 % (0-0) Nucleated Red Blood Cells 2 Toxic Granulation Mod Toxic Vacuolation Slight Platelet Estimate Adequate (ADEQUATE) Schistocytes Occ Prothrombin Time 18.7 SEC (11.7-14.0) Prothromb Time International Ratio 1.7 (0.8-1.1) Activated Partial Thromboplast Time 52 SEC (24-38) Sodium Level 133 mmol/L (136-145) Potassium Level 7.4 mmol/L (3.5-5.1) Chloride Level 100 mmol/L (98-107) Carbon Dioxide Level 10 mmol/L (21-32) Anion Gap 23 (6-14) Blood Urea Nitrogen 208 mg/dL (8-26) Creatinine 7.6 mg/dL (0.7-1.3) Estimated GFR (Cockcroft-Gault) 8.3 BUN/Creatinine Ratio 27 (6-20) Glucose Level 443 mg/dL (70-99) Lactic Acid Level 6.2 mmol/L (0.4-2.0) Calcium Level 8.1 mg/dL (8.5-10.1) Magnesium Level 3.1 mg/dL (1.8-2.4) Total Bilirubin 0.4 mg/dL (0.2-1.0) Aspartate Amino Transf (AST/SGOT) 481 U/L (15-37) Alanine Aminotransferase (ALT/SGPT) 284 U/L (16-63) Alkaline Phosphatase 95 U/L (46-116) Ammonia 193 mcmol/L (11-34) Creatine Kinase 132 U/L (39-308) Troponin I Quantitative < 0.017 ng/mL (0.000-0.055) AX-Wwp-[id number]-Type Natriuretic Peptide 508 pg/mL (0-449) Total Protein 5.4 g/dL (6.4-8.2) Albumin 1.8 g/dL (3.4-5.0) Albumin/Globulin Ratio 0.5 (1.0-1.7) Lipase 190 U/L (73-393) Thyroid Stimulating Hormone (TSH) 5.685 uIU/mL (0.358-3.74) Salicylates Level < 2.8 mg/dL (2.8-20.0) Salicylate Last Dose Date Salicylate Last Dose Time Acetaminophen Level 4.97 mcg/ml (10-30) Acetaminophen Last Dose Date Acetaminophen Last Dose Time Ethyl Alcohol Level < 10 mg/dL (0-10) Glucose (Fingerstick) 412 mg/dL (70-99) Stool Occult Blood Positive (NEG) Urine Collection Type U cath Urine Color Brown Urine Clarity Turbid Urine pH 8.0 Urine Specific [place] 1.020 Urine Protein >=300 mg/dL (NEG-TRACE) Urine Glucose (UA) Negative mg/dL (NEG) Urine Ketones (Stick) Trace mg/dL (NEG) Urine Blood Large (NEG) Urine Nitrite Positive (NEG) Urine Bilirubin Negative (NEG) Urine Urobilinogen Dipstick 0.2 mg/dL (0.2 mg/dL) Urine Leukocyte Esterase Large (NEG) Urine RBC Tntc /HPF (0-2) Urine WBC Tntc /HPF (0-4) Urine Squamous Epithelial Cells Occ /LPF Urine Bacteria Many /HPF (0-FEW) Urine Mucus Marked /LPF Urine Opiates Screen Neg (NEG) Urine Methadone Screen Neg (NEG) Urine Barbiturates Neg (NEG) Urine Phencyclidine Screen Neg (NEG) Urine Amphetamine/Methamphetamine Neg (NEG) Urine Benzodiazepines Screen Neg (NEG) Urine Cocaine Screen Neg (NEG) Urine Cannabinoids Screen Neg (NEG) Urine Ethyl Alcohol Neg (NEG) Test 10/04/16 17:17 10/04/16 17:30 10/04/16 17:42 10/04/16 18:57 Glucose (Fingerstick) 195 mg/dL (70-99) 91 mg/dL (70-99) 89 mg/dL (70-99) O2 Saturation 99 % (92-99) Arterial Blood pH 7.00 (7.35-7.45) Arterial Blood pH (Temp corrected) 7.05 Arterial Blood pCO2 at Patient Temp 24 mmHg (35-46) Arterial Blood pCO2 (Temp correct) 20 mmHg Arterial Blood pO2 at Patient Temp 342 mmHg (65-108) Arterial Blood pO2 (Temp corrected) 321 mmHg Arterial Blood HCO3 6 mmol/L (21-28) Arterial Blood Base Excess -23 mmol/L (-3-3) Oxyhemoglobin 96.1 % Methemoglobin 0.3 % (0.0-1.9) Carbon Monoxide, Quantitative 2.8 % (0.0-1.9) FiO2 100.0 Test 10/04/16 20:35 10/04/16 22:10 10/05/16 05:10 10/05/16 08:35 Lactic Acid Level 6.4 mmol/L (0.4-2.0) 1.9 mmol/L (0.4-2.0) Potassium Level 5.9 mmol/L (3.5-5.1) 5.2 mmol/L (3.5-5.1) Free Thyroxine 1.15 ng/dL (0.76-1.46) Free Triiodothyronine (T3) pg/mL 0.95 pg/mL (2.18-3.98) White Blood Count 10.9 x10^3/uL (4.0-11.0) Red Blood Count 4.53 x10^6/uL (4.30-5.70) Hemoglobin 13.0 g/dL (13.0-17.5) Hematocrit 38.3 % (39.0-53.0) Mean Corpuscular Volume 84 fL (79-100) Mean Corpuscular Hemoglobin 29 pg (25-35) Mean Corpuscular Hemoglobin Concent 34 g/dL (31-37) Red Cell Distribution Width 14.6 % (11.5-14.5) Platelet Count 234 x10^3/uL (140-400) Neutrophils (%) (Auto) 96 % (31-73) Lymphocytes (%) (Auto) 1 % (24-48) Monocytes (%) (Auto) 3 % (0-9) Eosinophils (%) (Auto) 0 % (0-3) Basophils (%) (Auto) 0 % (0-3) Neutrophils # (Auto) 10.4 x10^3uL (1.8-7.7) Lymphocytes # (Auto) 0.1 x10^3/uL (1.0-4.8) Monocytes # (Auto) 0.3 x10^3/uL (0.0-1.1) Eosinophils # (Auto) 0.0 x10^3/uL (0.0-0.7) Basophils # (Auto) 0.0 x10^3/uL (0.0-0.2) Segmented Neutrophils % 68 % (35-66) Band Neutrophils % 27 % (0-9) Lymphocytes % 1 % (24-48) Monocytes % 4 % (0-10) Platelet Estimate Adequate (ADEQUATE) Sodium Level 143 mmol/L (136-145) Chloride Level 110 mmol/L (98-107) Carbon Dioxide Level 14 mmol/L (21-32) Anion Gap 19 (6-14) Blood Urea Nitrogen 180 mg/dL (8-26) Creatinine 5.8 mg/dL (0.7-1.3) Estimated GFR (Cockcroft-Gault) 11.3 Glucose Level 76 mg/dL (70-99) Calcium Level 7.4 mg/dL (8.5-10.1) O2 Saturation 95 % (92-99) Arterial Blood pH 7.35 (7.35-7.45) Arterial Blood pCO2 at Patient Temp 21 mmHg (35-46) Arterial Blood pO2 at Patient Temp 85 mmHg (65-108) Arterial Blood HCO3 12 mmol/L (21-28) Arterial Blood Base Excess -12 mmol/L (-3-3) FiO2 21 Allergies: Coded Allergies: No Known Drug Allergies (Unverified , 09/24/14) Medications: Current Medications Medications (Trade) Dose Ordered Sig/Teagan Route PRN Reason Start Time Stop Time Status Last Admin Dose Admin Sodium Chloride 1,000 ml @ 1,000 mls/hr 1X ONCE IV 10/04/16 16:45 10/04/16 17:44 DC 10/04/16 16:55 Norepinephrine Bitartrate 250 ml @ 0 mls/hr 1X ONCE IV 10/04/16 16:45 10/04/16 16:50 DC 10/04/16 16:55 Piperacillin Sod/ Tazobactam Sod 3.375 gm/Sodium Chloride 50 ml @ 100 mls/hr 1X ONCE IV 10/04/16 16:45 10/04/16 17:14 DC 10/04/16 16:57 Albuterol Sulfate (Ventolin Neb Soln) 2.5 mg 1X ONCE NEB 10/04/16 17:00 10/04/16 17:01 DC 10/04/16 17:08 Calcium Gluconate (Calcium Gluconate) 1,000 mg 1X ONCE IV 10/04/16 17:00 10/04/16 17:01 DC 10/04/16 16:57 Insulin Human Regular (NovoLIN R VIAL) 10 unit 1X ONCE IV 10/04/16 17:00 10/04/16 17:01 DC 10/04/16 16:59 Sodium Chloride 1,000 ml @ 1,000 mls/hr 1X ONCE IV 10/04/16 17:15 10/04/16 18:14 DC 10/04/16 17:09 Pantoprazole Sodium (Protonix Vial) 40 mg 1X ONCE IVP 10/04/16 17:15 10/04/16 17:16 DC 10/04/16 17:12 Sodium Chloride 1,000 ml @ 1,000 mls/hr 1X ONCE IV 10/04/16 17:30 10/04/16 18:29 DC 10/04/16 17:30 Sodium Bicarbonate 150 meq/Dextrose 1,150 ml @ 125 mls/hr 1X ONCE IV 10/04/16 17:45 10/05/16 02:56 DC 10/04/16 17:53 Sodium Chloride 1,000 ml @ 125 mls/hr Q8H IV 10/04/16 19:00 10/04/16 22:34 Pantoprazole Sodium (Protonix Vial) 40 mg DAILYAC IVP 10/05/16 07:30 10/05/16 07:28 Piperacillin Sod/ Tazobactam Sod 2.25 gm/Sodium Chloride 50 ml @ 100 mls/hr Q8HRS IV 10/04/16 22:00 10/05/16 06:22 Vancomycin HCl 1 gm/Sodium Chloride 250 ml @ 250 mls/hr 1X ONCE IV 10/04/16 21:30 10/04/16 22:29 DC 10/04/16 22:35 Norepinephrine Bitartrate 250 ml @ 0 mls/hr CONT PRN IV SEE I/O RECORD 10/04/16 22:30 10/05/16 09:28 Imaging: Imaging: Head CT Impression: 1. No acute intracranial process. Please note that CT can be relatively insensitive to acute ischemic infarction for up to 24 hours after symptom onset. 2. Nonspecific white matter changes, probably from chronic microvascular ischemic disease. CXR Impression: No acute abnormality is seen. PE: GEN: NAD, thin HEENT: Atraumatic LUNGS: decreased HEART: distant ABD: NABS, S/ND/NT EXTREMITY: No edema SKIN: No rashes, no jaundice NEURO/PSYCH: grunts A/P: A/P: Hemoccult positive stool -?rectal bleeding in ER, no recurrence -Hgb 7.3 to 13 after transfusion Hyperkalemia, WILLIAM Hyperammonemia, transaminities AMS -- Add lactulose - could do rectally if unable to take PO. Check anemia parameters, monitor for bleeding. Abd US, check liver. ?EGD later on when K+ improved. MARCELLA LIMON Oct 05, 2016 10:05
--- NOTE | 2016-10-05 10:08 | PDOC ---
PROGRESS NOTES Chief Complaint Chief Complaint 1. HYPOTENSIVE SHOCK needing pressors 2. AGAP metabolic acidosis, WILLIAM severe 3. HYperkalemia with EKG changes 4. MEtabolic encephalopathy sec to above 5. BRBPR 6. Diminished responsiveness 7, UTI 8. Severe malnourishment/cachexia 9. 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 Elevated TSH (5) in a critically ill 11. Hypothermia History of Present Illness History of Present Illness CLinically better today and numbers better Seen in ICU on first day of hospital stay Able to tell me he is [place] Labs: lactate now normal 1.9 from 6 on admit Calcium is low but corrected is normal K mildly high 5,2 (better), UO good actually, bicarb still low at 14 (better than admit), crea 5 plus (better than 7 on admit) Only on 1 pressor now, levophed (was on 2 pressors on admit) WAS VERY DRY on arrival, unkempt Pt mostly bed bound per brother whom he lives with PLAN: PHARMACY SPECIALIST eval Turn q2 PT/OT when able Recheck K BMP again Renal consult ordered, service aware I and O SW consult - re living situations and possibly SNU COnt aggressive IVF hydration DVT prophy with heparin SW - dw GEOLOGIST Arlene Keep in ICU since still on levophed Vitals Vitals Vital Signs Date Time Temp Pulse Resp B/P (MAP) Pulse Ox O2 Delivery O2 Flow Rate FiO2 10/05/16 09:45 97.3 95 18 122/63 (82) 100 Room Air 97.3 10/05/16 05:30 2.0 Physical Exam General: Oriented X3, Cooperative, No acute distress, Other (lethargic) Lungs: Clear Abdomen: Normal bowel sounds, Soft, No tenderness, No hepatosplenomegaly, No masses Extremities: No clubbing, No cyanosis, No edema, Normal pulses, No tenderness/ swelling Skin: No rashes, No breakdown, No significant lesion Labs LABS Laboratory Tests Test 10/04/16 16:36 10/04/16 16:38 10/04/16 16:45 10/04/16 17:11 White Blood Count 5.4 x10^3/uL (4.0-11.0) Red Blood Count 2.64 x10^6/uL (4.30-5.70) Hemoglobin 7.3 g/dL (13.0-17.5) Hematocrit 23.2 % (39.0-53.0) Mean Corpuscular Volume 88 fL (79-100) Mean Corpuscular Hemoglobin 27 pg (25-35) Mean Corpuscular Hemoglobin Concent 31 g/dL (31-37) Red Cell Distribution Width 14.5 % (11.5-14.5) Platelet Count 244 x10^3/uL (140-400) Neutrophils (%) (Auto) 90 % (31-73) Lymphocytes (%) (Auto) 8 % (24-48) Monocytes (%) (Auto) 2 % (0-9) Eosinophils (%) (Auto) 0 % (0-3) Basophils (%) (Auto) 0 % (0-3) Neutrophils # (Auto) 4.9 x10^3uL (1.8-7.7) Lymphocytes # (Auto) 0.4 x10^3/uL (1.0-4.8) Monocytes # (Auto) 0.1 x10^3/uL (0.0-1.1) Eosinophils # (Auto) 0.0 x10^3/uL (0.0-0.7) Basophils # (Auto) 0.0 x10^3/uL (0.0-0.2) Segmented Neutrophils % 75 % (35-66) Band Neutrophils % 15 % (0-9) Lymphocytes % 7 % (24-48) Monocytes % 2 % (0-10) Metamyelocytes % 1 % (0-0) Nucleated Red Blood Cells 2 Toxic Granulation Mod Toxic Vacuolation Slight Platelet Estimate Adequate (ADEQUATE) Schistocytes Occ Prothrombin Time 18.7 SEC (11.7-14.0) Prothromb Time International Ratio 1.7 (0.8-1.1) Activated Partial Thromboplast Time 52 SEC (24-38) Sodium Level 133 mmol/L (136-145) Potassium Level 7.4 mmol/L (3.5-5.1) Chloride Level 100 mmol/L (98-107) Carbon Dioxide Level 10 mmol/L (21-32) Anion Gap 23 (6-14) Blood Urea Nitrogen 208 mg/dL (8-26) Creatinine 7.6 mg/dL (0.7-1.3) Estimated GFR (Cockcroft-Gault) 8.3 BUN/Creatinine Ratio 27 (6-20) Glucose Level 443 mg/dL (70-99) Lactic Acid Level 6.2 mmol/L (0.4-2.0) Calcium Level 8.1 mg/dL (8.5-10.1) Magnesium Level 3.1 mg/dL (1.8-2.4) Total Bilirubin 0.4 mg/dL (0.2-1.0) Aspartate Amino Transf (AST/SGOT) 481 U/L (15-37) Alanine Aminotransferase (ALT/SGPT) 284 U/L (16-63) Alkaline Phosphatase 95 U/L (46-116) Ammonia 193 mcmol/L (11-34) Creatine Kinase 132 U/L (39-308) Troponin I Quantitative < 0.017 ng/mL (0.000-0.055) NF-Hzr-O-Type Natriuretic Peptide 508 pg/mL (0-449) Total Protein 5.4 g/dL (6.4-8.2) Albumin 1.8 g/dL (3.4-5.0) Albumin/Globulin Ratio 0.5 (1.0-1.7) Lipase 190 U/L (73-393) Thyroid Stimulating Hormone (TSH) 5.685 uIU/mL (0.358-3.74) Salicylates Level < 2.8 mg/dL (2.8-20.0) Salicylate Last Dose Date Salicylate Last Dose Time Acetaminophen Level 4.97 mcg/ml (10-30) Acetaminophen Last Dose Date Acetaminophen Last Dose Time Ethyl Alcohol Level < 10 mg/dL (0-10) Glucose (Fingerstick) 412 mg/dL (70-99) Stool Occult Blood Positive (NEG) Urine Collection Type U cath Urine Color Brown Urine Clarity Turbid Urine pH 8.0 Urine Specific [place] 1.020 Urine Protein >=300 mg/dL (NEG-TRACE) Urine Glucose (UA) Negative mg/dL (NEG) Urine Ketones (Stick) Trace mg/dL (NEG) Urine Blood Large (NEG) Urine Nitrite Positive (NEG) Urine Bilirubin Negative (NEG) Urine Urobilinogen Dipstick 0.2 mg/dL (0.2 mg/dL) Urine Leukocyte Esterase Large (NEG) Urine RBC Tntc /HPF (0-2) Urine WBC Tntc /HPF (0-4) Urine Squamous Epithelial Cells Occ /LPF Urine Bacteria Many /HPF (0-FEW) Urine Mucus Marked /LPF Urine Opiates Screen Neg (NEG) Urine Methadone Screen Neg (NEG) Urine Barbiturates Neg (NEG) Urine Phencyclidine Screen Neg (NEG) Urine Amphetamine/Methamphetamine Neg (NEG) Urine Benzodiazepines Screen Neg (NEG) Urine Cocaine Screen Neg (NEG) Urine Cannabinoids Screen Neg (NEG) Urine Ethyl Alcohol Neg (NEG) Test 10/04/16 17:17 10/04/16 17:30 10/04/16 17:42 10/04/16 18:57 Glucose (Fingerstick) 195 mg/dL (70-99) 91 mg/dL (70-99) 89 mg/dL (70-99) O2 Saturation 99 % (92-99) Arterial Blood pH 7.00 (7.35-7.45) Arterial Blood pH (Temp corrected) 7.05 Arterial Blood pCO2 at Patient Temp 24 mmHg (35-46) Arterial Blood pCO2 (Temp correct) 20 mmHg Arterial Blood pO2 at Patient Temp 342 mmHg (65-108) Arterial Blood pO2 (Temp corrected) 321 mmHg Arterial Blood HCO3 6 mmol/L (21-28) Arterial Blood Base Excess -23 mmol/L (-3-3) Oxyhemoglobin 96.1 % Methemoglobin 0.3 % (0.0-1.9) Carbon Monoxide, Quantitative 2.8 % (0.0-1.9) FiO2 100.0 Test 10/04/16 20:35 10/04/16 22:10 10/05/16 05:10 10/05/16 08:35 Lactic Acid Level 6.4 mmol/L (0.4-2.0) 1.9 mmol/L (0.4-2.0) Potassium Level 5.9 mmol/L (3.5-5.1) 5.2 mmol/L (3.5-5.1) Free Thyroxine 1.15 ng/dL (0.76-1.46) Free Triiodothyronine (T3) pg/mL 0.95 pg/mL (2.18-3.98) White Blood Count 10.9 x10^3/uL (4.0-11.0) Red Blood Count 4.53 x10^6/uL (4.30-5.70) Hemoglobin 13.0 g/dL (13.0-17.5) Hematocrit 38.3 % (39.0-53.0) Mean Corpuscular Volume 84 fL (79-100) Mean Corpuscular Hemoglobin 29 pg (25-35) Mean Corpuscular Hemoglobin Concent 34 g/dL (31-37) Red Cell Distribution Width 14.6 % (11.5-14.5) Platelet Count 234 x10^3/uL (140-400) Neutrophils (%) (Auto) 96 % (31-73) Lymphocytes (%) (Auto) 1 % (24-48) Monocytes (%) (Auto) 3 % (0-9) Eosinophils (%) (Auto) 0 % (0-3) Basophils (%) (Auto) 0 % (0-3) Neutrophils # (Auto) 10.4 x10^3uL (1.8-7.7) Lymphocytes # (Auto) 0.1 x10^3/uL (1.0-4.8) Monocytes # (Auto) 0.3 x10^3/uL (0.0-1.1) Eosinophils # (Auto) 0.0 x10^3/uL (0.0-0.7) Basophils # (Auto) 0.0 x10^3/uL (0.0-0.2) Segmented Neutrophils % 68 % (35-66) Band Neutrophils % 27 % (0-9) Lymphocytes % 1 % (24-48) Monocytes % 4 % (0-10) Platelet Estimate Adequate (ADEQUATE) Sodium Level 143 mmol/L (136-145) Chloride Level 110 mmol/L (98-107) Carbon Dioxide Level 14 mmol/L (21-32) Anion Gap 19 (6-14) Blood Urea Nitrogen 180 mg/dL (8-26) Creatinine 5.8 mg/dL (0.7-1.3) Estimated GFR (Cockcroft-Gault) 11.3 Glucose Level 76 mg/dL (70-99) Calcium Level 7.4 mg/dL (8.5-10.1) O2 Saturation 95 % (92-99) Arterial Blood pH 7.35 (7.35-7.45) Arterial Blood pCO2 at Patient Temp 21 mmHg (35-46) Arterial Blood pO2 at Patient Temp 85 mmHg (65-108) Arterial Blood HCO3 12 mmol/L (21-28) Arterial Blood Base Excess -12 mmol/L (-3-3) FiO2 21 Review of Systems Review of Systems denies 14 pt - but not the best historian Assessment and Plan Assessmemt and Plan Problems Medical Problems: (1) Anemia Status: Acute (2) Encephalopathy acute Status: Acute (3) GI bleed Status: Acute (4) Hyperkalemia Status: Acute (5) Renal failure Status: Acute (6) Septic shock Status: Acute Problems: Comment Review of Relevant I have reviewed the following items sushant (where applicable) has been applied. Labs Laboratory Tests Test 10/04/16 16:36 10/04/16 16:38 10/04/16 16:45 10/04/16 17:11 White Blood Count 5.4 x10^3/uL (4.0-11.0) Red Blood Count 2.64 x10^6/uL (4.30-5.70) Hemoglobin 7.3 g/dL (13.0-17.5) Hematocrit 23.2 % (39.0-53.0) Mean Corpuscular Volume 88 fL (79-100) Mean Corpuscular Hemoglobin 27 pg (25-35) Mean Corpuscular Hemoglobin Concent 31 g/dL (31-37) Red Cell Distribution Width 14.5 % (11.5-14.5) Platelet Count 244 x10^3/uL (140-400) Neutrophils (%) (Auto) 90 % (31-73) Lymphocytes (%) (Auto) 8 % (24-48) Monocytes (%) (Auto) 2 % (0-9) Eosinophils (%) (Auto) 0 % (0-3) Basophils (%) (Auto) 0 % (0-3) Neutrophils # (Auto) 4.9 x10^3uL (1.8-7.7) Lymphocytes # (Auto) 0.4 x10^3/uL (1.0-4.8) Monocytes # (Auto) 0.1 x10^3/uL (0.0-1.1) Eosinophils # (Auto) 0.0 x10^3/uL (0.0-0.7) Basophils # (Auto) 0.0 x10^3/uL (0.0-0.2) Segmented Neutrophils % 75 % (35-66) Band Neutrophils % 15 % (0-9) Lymphocytes % 7 % (24-48) Monocytes % 2 % (0-10) Metamyelocytes % 1 % (0-0) Nucleated Red Blood Cells 2 Toxic Granulation Mod Toxic Vacuolation Slight Platelet Estimate Adequate (ADEQUATE) Schistocytes Occ Prothrombin Time 18.7 SEC (11.7-14.0) Prothromb Time International Ratio 1.7 (0.8-1.1) Activated Partial Thromboplast Time 52 SEC (24-38) Sodium Level 133 mmol/L (136-145) Potassium Level 7.4 mmol/L (3.5-5.1) Chloride Level 100 mmol/L (98-107) Carbon Dioxide Level 10 mmol/L (21-32) Anion Gap 23 (6-14) Blood Urea Nitrogen 208 mg/dL (8-26) Creatinine 7.6 mg/dL (0.7-1.3) Estimated GFR (Cockcroft-Gault) 8.3 BUN/Creatinine Ratio 27 (6-20) Glucose Level 443 mg/dL (70-99) Lactic Acid Level 6.2 mmol/L (0.4-2.0) Calcium Level 8.1 mg/dL (8.5-10.1) Magnesium Level 3.1 mg/dL (1.8-2.4) Total Bilirubin 0.4 mg/dL (0.2-1.0) Aspartate Amino Transf (AST/SGOT) 481 U/L (15-37) Alanine Aminotransferase (ALT/SGPT) 284 U/L (16-63) Alkaline Phosphatase 95 U/L (46-116) Ammonia 193 mcmol/L (11-34) Creatine Kinase 132 U/L (39-308) Troponin I Quantitative < 0.017 ng/mL (0.000-0.055) PU-Ezd-L-Type Natriuretic Peptide 508 pg/mL (0-449) Total Protein 5.4 g/dL (6.4-8.2) Albumin 1.8 g/dL (3.4-5.0) Albumin/Globulin Ratio 0.5 (1.0-1.7) Lipase 190 U/L (73-393) Thyroid Stimulating Hormone (TSH) 5.685 uIU/mL (0.358-3.74) Salicylates Level < 2.8 mg/dL (2.8-20.0) Salicylate Last Dose Date Salicylate Last Dose Time Acetaminophen Level 4.97 mcg/ml (10-30) Acetaminophen Last Dose Date Acetaminophen Last Dose Time Ethyl Alcohol Level < 10 mg/dL (0-10) Glucose (Fingerstick) 412 mg/dL (70-99) Stool Occult Blood Positive (NEG) Urine Collection Type U cath Urine Color Brown Urine Clarity Turbid Urine pH 8.0 Urine Specific [place] 1.020 Urine Protein >=300 mg/dL (NEG-TRACE) Urine Glucose (UA) Negative mg/dL (NEG) Urine Ketones (Stick) Trace mg/dL (NEG) Urine Blood Large (NEG) Urine Nitrite Positive (NEG) Urine Bilirubin Negative (NEG) Urine Urobilinogen Dipstick 0.2 mg/dL (0.2 mg/dL) Urine Leukocyte Esterase Large (NEG) Urine RBC Tntc /HPF (0-2) Urine WBC Tntc /HPF (0-4) Urine Squamous Epithelial Cells Occ /LPF Urine Bacteria Many /HPF (0-FEW) Urine Mucus Marked /LPF Urine Opiates Screen Neg (NEG) Urine Methadone Screen Neg (NEG) Urine Barbiturates Neg (NEG) Urine Phencyclidine Screen Neg (NEG) Urine Amphetamine/Methamphetamine Neg (NEG) Urine Benzodiazepines Screen Neg (NEG) Urine Cocaine Screen Neg (NEG) Urine Cannabinoids Screen Neg (NEG) Urine Ethyl Alcohol Neg (NEG) Test 10/04/16 17:17 10/04/16 17:30 10/04/16 17:42 10/04/16 18:57 Glucose (Fingerstick) 195 mg/dL (70-99) 91 mg/dL (70-99) 89 mg/dL (70-99) O2 Saturation 99 % (92-99) Arterial Blood pH 7.00 (7.35-7.45) Arterial Blood pH (Temp corrected) 7.05 Arterial Blood pCO2 at Patient Temp 24 mmHg (35-46) Arterial Blood pCO2 (Temp correct) 20 mmHg Arterial Blood pO2 at Patient Temp 342 mmHg (65-108) Arterial Blood pO2 (Temp corrected) 321 mmHg Arterial Blood HCO3 6 mmol/L (21-28) Arterial Blood Base Excess -23 mmol/L (-3-3) Oxyhemoglobin 96.1 % Methemoglobin 0.3 % (0.0-1.9) Carbon Monoxide, Quantitative 2.8 % (0.0-1.9) FiO2 100.0 Test 10/04/16 20:35 10/04/16 22:10 10/05/16 05:10 10/05/16 08:35 Lactic Acid Level 6.4 mmol/L (0.4-2.0) 1.9 mmol/L (0.4-2.0) Potassium Level 5.9 mmol/L (3.5-5.1) 5.2 mmol/L (3.5-5.1) Free Thyroxine 1.15 ng/dL (0.76-1.46) Free Triiodothyronine (T3) pg/mL 0.95 pg/mL (2.18-3.98) White Blood Count 10.9 x10^3/uL (4.0-11.0) Red Blood Count 4.53 x10^6/uL (4.30-5.70) Hemoglobin 13.0 g/dL (13.0-17.5) Hematocrit 38.3 % (39.0-53.0) Mean Corpuscular Volume 84 fL (79-100) Mean Corpuscular Hemoglobin 29 pg (25-35) Mean Corpuscular Hemoglobin Concent 34 g/dL (31-37) Red Cell Distribution Width 14.6 % (11.5-14.5) Platelet Count 234 x10^3/uL (140-400) Neutrophils (%) (Auto) 96 % (31-73) Lymphocytes (%) (Auto) 1 % (24-48) Monocytes (%) (Auto) 3 % (0-9) Eosinophils (%) (Auto) 0 % (0-3) Basophils (%) (Auto) 0 % (0-3) Neutrophils # (Auto) 10.4 x10^3uL (1.8-7.7) Lymphocytes # (Auto) 0.1 x10^3/uL (1.0-4.8) Monocytes # (Auto) 0.3 x10^3/uL (0.0-1.1) Eosinophils # (Auto) 0.0 x10^3/uL (0.0-0.7) Basophils # (Auto) 0.0 x10^3/uL (0.0-0.2) Segmented Neutrophils % 68 % (35-66) Band Neutrophils % 27 % (0-9) Lymphocytes % 1 % (24-48) Monocytes % 4 % (0-10) Platelet Estimate Adequate (ADEQUATE) Sodium Level 143 mmol/L (136-145) Chloride Level 110 mmol/L (98-107) Carbon Dioxide Level 14 mmol/L (21-32) Anion Gap 19 (6-14) Blood Urea Nitrogen 180 mg/dL (8-26) Creatinine 5.8 mg/dL (0.7-1.3) Estimated GFR (Cockcroft-Gault) 11.3 Glucose Level 76 mg/dL (70-99) Calcium Level 7.4 mg/dL (8.5-10.1) O2 Saturation 95 % (92-99) Arterial Blood pH 7.35 (7.35-7.45) Arterial Blood pCO2 at Patient Temp 21 mmHg (35-46) Arterial Blood pO2 at Patient Temp 85 mmHg (65-108) Arterial Blood HCO3 12 mmol/L (21-28) Arterial Blood Base Excess -12 mmol/L (-3-3) FiO2 21 Laboratory Tests Test 10/04/16 16:36 10/04/16 16:38 10/04/16 16:45 10/04/16 17:11 White Blood Count 5.4 x10^3/uL (4.0-11.0) Red Blood Count 2.64 x10^6/uL (4.30-5.70) Hemoglobin 7.3 g/dL (13.0-17.5) Hematocrit 23.2 % (39.0-53.0) Mean Corpuscular Volume 88 fL (79-100) Mean Corpuscular Hemoglobin 27 pg (25-35) Mean Corpuscular Hemoglobin Concent 31 g/dL (31-37) Red Cell Distribution Width 14.5 % (11.5-14.5) Platelet Count 244 x10^3/uL (140-400) Neutrophils (%) (Auto) 90 % (31-73) Lymphocytes (%) (Auto) 8 % (24-48) Monocytes (%) (Auto) 2 % (0-9) Eosinophils (%) (Auto) 0 % (0-3) Basophils (%) (Auto) 0 % (0-3) Neutrophils # (Auto) 4.9 x10^3uL (1.8-7.7) Lymphocytes # (Auto) 0.4 x10^3/uL (1.0-4.8) Monocytes # (Auto) 0.1 x10^3/uL (0.0-1.1) Eosinophils # (Auto) 0.0 x10^3/uL (0.0-0.7) Basophils # (Auto) 0.0 x10^3/uL (0.0-0.2) Segmented Neutrophils % 75 % (35-66) Band Neutrophils % 15 % (0-9) Lymphocytes % 7 % (24-48) Monocytes % 2 % (0-10) Metamyelocytes % 1 % (0-0) Nucleated Red Blood Cells 2 Toxic Granulation Mod Toxic Vacuolation Slight Platelet Estimate Adequate (ADEQUATE) Schistocytes Occ Prothrombin Time 18.7 SEC (11.7-14.0) Prothromb Time International Ratio 1.7 (0.8-1.1) Activated Partial Thromboplast Time 52 SEC (24-38) Sodium Level 133 mmol/L (136-145) Potassium Level 7.4 mmol/L (3.5-5.1) Chloride Level 100 mmol/L (98-107) Carbon Dioxide Level 10 mmol/L (21-32) Anion Gap 23 (6-14) Blood Urea Nitrogen 208 mg/dL (8-26) Creatinine 7.6 mg/dL (0.7-1.3) Estimated GFR (Cockcroft-Gault) 8.3 BUN/Creatinine Ratio 27 (6-20) Glucose Level 443 mg/dL (70-99) Lactic Acid Level 6.2 mmol/L (0.4-2.0) Calcium Level 8.1 mg/dL (8.5-10.1) Magnesium Level 3.1 mg/dL (1.8-2.4) Total Bilirubin 0.4 mg/dL (0.2-1.0) Aspartate Amino Transf (AST/SGOT) 481 U/L (15-37) Alanine Aminotransferase (ALT/SGPT) 284 U/L (16-63) Alkaline Phosphatase 95 U/L (46-116) Ammonia 193 mcmol/L (11-34) Creatine Kinase 132 U/L (39-308) Troponin I Quantitative < 0.017 ng/mL (0.000-0.055) AY-Fxy-X-Type Natriuretic Peptide 508 pg/mL (0-449) Total Protein 5.4 g/dL (6.4-8.2) Albumin 1.8 g/dL (3.4-5.0) Albumin/Globulin Ratio 0.5 (1.0-1.7) Lipase 190 U/L (73-393) Thyroid Stimulating Hormone (TSH) 5.685 uIU/mL (0.358-3.74) Salicylates Level < 2.8 mg/dL (2.8-20.0) Salicylate Last Dose Date Salicylate Last Dose Time Acetaminophen Level 4.97 mcg/ml (10-30) Acetaminophen Last Dose Date Acetaminophen Last Dose Time Ethyl Alcohol Level < 10 mg/dL (0-10) Glucose (Fingerstick) 412 mg/dL (70-99) Stool Occult Blood Positive (NEG) Urine Collection Type U cath Urine Color Brown Urine Clarity Turbid Urine pH 8.0 Urine Specific [place] 1.020 Urine Protein >=300 mg/dL (NEG-TRACE) Urine Glucose (UA) Negative mg/dL (NEG) Urine Ketones (Stick) Trace mg/dL (NEG) Urine Blood Large (NEG) Urine Nitrite Positive (NEG) Urine Bilirubin Negative (NEG) Urine Urobilinogen Dipstick 0.2 mg/dL (0.2 mg/dL) Urine Leukocyte Esterase Large (NEG) Urine RBC Tntc /HPF (0-2) Urine WBC Tntc /HPF (0-4) Urine Squamous Epithelial Cells Occ /LPF Urine Bacteria Many /HPF (0-FEW) Urine Mucus Marked /LPF Urine Opiates Screen Neg (NEG) Urine Methadone Screen Neg (NEG) Urine Barbiturates Neg (NEG) Urine Phencyclidine Screen Neg (NEG) Urine Amphetamine/Methamphetamine Neg (NEG) Urine Benzodiazepines Screen Neg (NEG) Urine Cocaine Screen Neg (NEG) Urine Cannabinoids Screen Neg (NEG) Urine Ethyl Alcohol Neg (NEG) Test 10/04/16 17:17 10/04/16 17:30 10/04/16 17:42 10/04/16 18:57 Glucose (Fingerstick) 195 mg/dL (70-99) 91 mg/dL (70-99) 89 mg/dL (70-99) O2 Saturation 99 % (92-99) Arterial Blood pH 7.00 (7.35-7.45) Arterial Blood pH (Temp corrected) 7.05 Arterial Blood pCO2 at Patient Temp 24 mmHg (35-46) Arterial Blood pCO2 (Temp correct) 20 mmHg Arterial Blood pO2 at Patient Temp 342 mmHg (65-108) Arterial Blood pO2 (Temp corrected) 321 mmHg Arterial Blood HCO3 6 mmol/L (21-28) Arterial Blood Base Excess -23 mmol/L (-3-3) Oxyhemoglobin 96.1 % Methemoglobin 0.3 % (0.0-1.9) Carbon Monoxide, Quantitative 2.8 % (0.0-1.9) FiO2 100.0 Test 10/04/16 20:35 10/04/16 22:10 10/05/16 05:10 10/05/16 08:35 Lactic Acid Level 6.4 mmol/L (0.4-2.0) 1.9 mmol/L (0.4-2.0) Potassium Level 5.9 mmol/L (3.5-5.1) 5.2 mmol/L (3.5-5.1) Free Thyroxine 1.15 ng/dL (0.76-1.46) Free Triiodothyronine (T3) pg/mL 0.95 pg/mL (2.18-3.98) White Blood Count 10.9 x10^3/uL (4.0-11.0) Red Blood Count 4.53 x10^6/uL (4.30-5.70) Hemoglobin 13.0 g/dL (13.0-17.5) Hematocrit 38.3 % (39.0-53.0) Mean Corpuscular Volume 84 fL (79-100) Mean Corpuscular Hemoglobin 29 pg (25-35) Mean Corpuscular Hemoglobin Concent 34 g/dL (31-37) Red Cell Distribution Width 14.6 % (11.5-14.5) Platelet Count 234 x10^3/uL (140-400) Neutrophils (%) (Auto) 96 % (31-73) Lymphocytes (%) (Auto) 1 % (24-48) Monocytes (%) (Auto) 3 % (0-9) Eosinophils (%) (Auto) 0 % (0-3) Basophils (%) (Auto) 0 % (0-3) Neutrophils # (Auto) 10.4 x10^3uL (1.8-7.7) Lymphocytes # (Auto) 0.1 x10^3/uL (1.0-4.8) Monocytes # (Auto) 0.3 x10^3/uL (0.0-1.1) Eosinophils # (Auto) 0.0 x10^3/uL (0.0-0.7) Basophils # (Auto) 0.0 x10^3/uL (0.0-0.2) Segmented Neutrophils % 68 % (35-66) Band Neutrophils % 27 % (0-9) Lymphocytes % 1 % (24-48) Monocytes % 4 % (0-10) Platelet Estimate Adequate (ADEQUATE) Sodium Level 143 mmol/L (136-145) Chloride Level 110 mmol/L (98-107) Carbon Dioxide Level 14 mmol/L (21-32) Anion Gap 19 (6-14) Blood Urea Nitrogen 180 mg/dL (8-26) Creatinine 5.8 mg/dL (0.7-1.3) Estimated GFR (Cockcroft-Gault) 11.3 Glucose Level 76 mg/dL (70-99) Calcium Level 7.4 mg/dL (8.5-10.1) O2 Saturation 95 % (92-99) Arterial Blood pH 7.35 (7.35-7.45) Arterial Blood pCO2 at Patient Temp 21 mmHg (35-46) Arterial Blood pO2 at Patient Temp 85 mmHg (65-108) Arterial Blood HCO3 12 mmol/L (21-28) Arterial Blood Base Excess -12 mmol/L (-3-3) FiO2 21 Medications Current Medications Sodium Chloride 1,000 ml @ 1,000 mls/hr 1X ONCE IV Last administered on 16:55; Start 10/04/16 at 16:45; Stop 10/04/16 at 17:44; Status DC Norepinephrine Bitartrate 250 ml @ 0 mls/hr 1X ONCE IV Last administered on 16:55; Start 10/04/16 at 16:45; Stop 10/04/16 at 16:50; Status DC Piperacillin Sod/ Tazobactam Sod 3.375 gm/Sodium Chloride 50 ml @ 100 mls/hr 1X ONCE IV Last administered on 10/04/16 16:57; Start 10/04/16 at 16:45; Stop 10/04/16 at 17:14; Status DC Vancomycin HCl 250 ml @ 250 mls/hr 1X ONCE IV ; Start 10/04/16 at 17:30; Stop 10/04/16 at 18:29; Status Cancel Albuterol Sulfate (Ventolin Neb Soln) 2.5 mg 1X ONCE NEB Last administered on 10/04/16 17:08; Start 10/04/16 at 17:00; Stop 10/04/16 at 17:01; Status DC Calcium Gluconate (Calcium Gluconate) 1,000 mg 1X ONCE IV Last administered on 10/04/16 16:57; Start 10/04/16 at 17:00; Stop 10/04/16 at 17:01; Status DC Insulin Human Regular (NovoLIN R VIAL) 10 unit 1X ONCE IV Last administered on 10/04/16 16:59; Start 10/04/16 at 17:00; Stop 10/04/16 at 17:01; Status DC Sodium Chloride 1,000 ml @ 1,000 mls/hr 1X ONCE IV Last administered on 17:09; Start 10/04/16 at 17:15; Stop 10/04/16 at 18:14; Status DC Pantoprazole Sodium (Protonix Vial) 40 mg 1X ONCE IVP Last administered on 17:12; Start 10/04/16 at 17:15; Stop 10/04/16 at 17:16; Status DC Sodium Chloride 1,000 ml @ 1,000 mls/hr 1X ONCE IV Last administered on 17:30; Start 10/04/16 at 17:30; Stop 10/04/16 at 18:29; Status DC Sodium Bicarbonate 150 meq/Dextrose 1,150 ml @ 125 mls/hr 1X ONCE IV Last administered on 10/04/16 17:53; Start 10/04/16 at 17:45; Stop 10/05/16 at 02:56 ; Status DC Ondansetron HCl (Zofran) 4 mg PRN Q8HRS PRN IV NAUSEA/VOMITING; Start 10/04/16 at 17:30; Stop 10/04/16 at 18:45; Status DC Ondansetron HCl (Zofran) 4 mg PRN Q6HRS PRN IV NAUSEA/VOMITING; Start 10/04/16 at 18:41; Stop 10/05/16 at 18:40 Sodium Chloride 1,000 ml @ 125 mls/hr Q8H IV Last administered on 10/04/16 22 :34; Start 10/04/16 at 19:00 Heparin Sodium (Porcine) (Heparin Sq) 5,000 unit Q8HRS SQ ; Start 10/04/16 at 22 :00; Stop 10/04/16 at 22:00; Status DC Pantoprazole Sodium (Protonix Vial) 40 mg DAILYAC IVP Last administered on 10/05 07:28; Start 10/05/16 at 07:30 Acetaminophen (Tylenol) 500 mg PRN Q6HRS PRN PO MILD PAIN / TEMP; Start at 18:45 Piperacillin Sod/ Tazobactam Sod (Zosyn Per Pharmacy) 1 each PRN DAILY PRN MC SEE COMMENTS; Start 10/04/16 at 19:15 Piperacillin Sod/ Tazobactam Sod 2.25 gm/Sodium Chloride 50 ml @ 100 mls/hr Q8HRS IV Last administered on 10/05/16 06:22; Start 10/04/16 at 22:00 Vancomycin HCl 1 gm/Sodium Chloride 250 ml @ 250 mls/hr 1X ONCE IV Last administered on 10/04/16 22:35; Start 10/04/16 at 21:30; Stop 10/04/16 at 22:29 ; Status DC Norepinephrine Bitartrate 250 ml @ 0 mls/hr CONT PRN IV SEE I/O RECORD Last administered on 10/05/16 09:28; Start 10/04/16 at 22:30 Lactulose 20 gm BID PO ; Start 10/05/16 at 10:00 Active Scripts Active [place] 5-325 Tablet (Acetaminophen/Hydrocodone Bitart) 1 Each Tablet 1 Tab PO PRN Q6HRS PRN Reported Indapamide 2.5 Mg Tablet 1 Tab PO DAILY Amlodipine Besylate 10 Mg Tablet 1 Tab PO DAILY Haloperidol 2 Mg Tablet 1 Tab PO QHS Glipizide Er (Glipizide) 5 Mg Tab.er.24 1 Tab PO DAILY Benztropine Mesylate 2 Mg Tablet 2 Mg PO DAILY Zoloft (Sertraline Hcl) 25 Mg Tablet 1 Tab PO DAILY Vitals/I & O Vital Sign - Last 24 Hours 10/04/16 10/04/16 10/04/16 10/04/16 16:33 16:51 17:01 17:09 Temp 91.8 91.8 Pulse 72 56 59 Resp 24 24 18 B/P (MAP) 88/39 (55) 90/39 (56) 91/52 (65) Pulse Ox 99 99 96 O2 Delivery NonRebreather Mask NonRebreather Mask Nasal Cannula NonRebreather Mask O2 Flow Rate 2.0 10/04/16 10/04/16 10/04/16 10/04/16 17:11 17:21 17:31 17:42 Pulse 62 62 64 66 Resp 16 16 20 20 B/P (MAP) 89/44 (59) 77/40 (52) 74/35 (48) 82/43 (56) Pulse Ox 99 100 100 100 O2 Delivery Nasal Cannula O2 Flow Rate 2.0 10/04/16 10/04/16 10/04/16 10/04/16 17:48 17:54 18:05 18:10 Pulse 67 69 68 66 Resp 20 18 20 18 B/P (MAP) 81/44 (56) 81/45 (57) 106/63 (77) 115/60 (78) Pulse Ox 99 99 100 99 O2 Delivery Nasal Cannula Nasal Cannula O2 Flow Rate 2.0 2.0 10/04/16 10/04/16 10/04/16 10/04/16 18:30 19:00 19:15 19:30 Temp 91.8 91.4 91.8 92.1 91.8 91.4 91.8 92.1 Pulse 74 70 70 72 Resp 24 26 26 29 B/P (MAP) 105/35 (58) 94/50 (65) 98/42 (60) 90/38 (55) Pulse Ox 96 98 92 96 O2 Delivery Nasal Cannula Nasal Cannula Nasal Cannula Nasal Cannula O2 Flow Rate 2.0 2.0 2.0 2.0 10/04/16 10/04/16 10/04/16 10/04/16 19:43 19:45 20:00 20:00 Temp 92.1 92.5 92.1 92.1 92.5 92.1 Pulse 71 74 76 Resp 30 28 28 B/P (MAP) 90/38 79/35 (50) 82/41 (55) Pulse Ox 96 90 O2 Delivery Nasal Cannula Nasal Cannula Nasal Cannula O2 Flow Rate 2.0 2.0 2.0 10/04/16 10/04/16 10/04/16 10/04/16 20:15 20:30 20:45 20:56 Temp 92.5 92.7 92.1 92.7 92.5 92.7 92.1 92.7 Pulse 78 80 82 79 Resp 30 28 32 32 B/P (MAP) 94/45 (61) 100/53 (69) 114/54 Pulse Ox 100 99 100 O2 Delivery Nasal Cannula Nasal Cannula Nasal Cannula O2 Flow Rate 2.0 2.0 2.0 10/04/16 10/04/16 10/04/16 10/04/16 21:00 21:09 21:30 22:00 Temp 92.5 92.8 93.6 94.3 92.5 92.8 93.6 94.3 Pulse 80 80 82 82 Resp 32 24 40 34 B/P (MAP) 102/65 (77) 114/54 109/55 (73) 88/50 (63) Pulse Ox 100 99 100 O2 Delivery Nasal Cannula Nasal Cannula Nasal Cannula O2 Flow Rate 2.0 2.0 2.0 10/04/16 10/04/16 10/04/16 10/05/16 22:30 23:00 23:30 00:00 Temp 95.0 95.7 96.8 97.5 95.0 95.7 96.8 97.5 Pulse 82 90 90 90 Resp 30 34 26 26 B/P (MAP) 111/69 (83) 120/55 (76) 114/72 (86) 118/64 (82) Pulse Ox 100 100 100 100 O2 Delivery Nasal Cannula Nasal Cannula Nasal Cannula Nasal Cannula O2 Flow Rate 2.0 2.0 2.0 2.0 10/05/16 10/05/16 10/05/16 10/05/16 00:00 00:30 01:00 01:30 Temp 98.2 98.2 98.6 98.2 98.2 98.6 Pulse 94 98 96 Resp 30 28 26 B/P (MAP) 108/67 (81) 103/63 (76) 114/57 (76) Pulse Ox 100 100 100 O2 Delivery Nasal Cannula Nasal Cannula Nasal Cannula Nasal Cannula O2 Flow Rate 2.0 2.0 2.0 2.0 10/05/16 10/05/16 10/05/16 10/05/16 02:00 03:00 03:30 04:00 Temp 98.2 97.7 97.9 98.2 97.7 97.9 Pulse 94 99 98 Resp 28 24 22 B/P (MAP) 112/60 (77) 117/65 (82) 105/65 (78) Pulse Ox 100 100 100 O2 Delivery Nasal Cannula Nasal Cannula Nasal Cannula Nasal Cannula O2 Flow Rate 2.0 2.0 2.0 2.0 10/05/16 10/05/16 10/05/16 10/05/16 04:00 04:30 05:00 05:30 Temp 97.5 97.2 96.8 96.8 97.5 97.2 96.8 96.8 Pulse 98 96 94 88 Resp 24 35 30 33 B/P (MAP) 134/61 (85) 129/80 (96) 116/62 (80) 117/63 (81) Pulse Ox 100 100 100 100 O2 Delivery Nasal Cannula Nasal Cannula Nasal Cannula Nasal Cannula O2 Flow Rate 2.0 2.0 2.0 2.0 10/05/16 10/05/16 10/05/16 10/05/16 06:00 06:15 06:28 07:00 Temp 96.8 96.8 97.2 97.2 96.8 96.8 97.2 97.2 Pulse 88 92 91 88 Resp 37 37 22 20 B/P (MAP) 119/65 (83) 134/80 (98) 107/58 (74) 110/62 (78) Pulse Ox 100 100 100 100 O2 Delivery Room Air Room Air Room Air Room Air 10/05/16 10/05/16 10/05/16 10/05/16 07:30 07:45 08:00 08:00 Temp 97.2 97.2 97.2 97.2 97.2 97.2 Pulse 92 94 92 Resp 18 18 15 B/P (MAP) 119/56 (77) 114/66 (82) 116/62 (80) Pulse Ox 100 100 100 O2 Delivery Room Air Room Air Room Air Room Air 10/05/16 10/05/16 10/05/16 10/05/16 08:15 08:45 09:00 09:30 Temp 97.2 97.3 97.3 97.3 97.2 97.3 97.3 97.3 Pulse 98 95 95 95 Resp 22 22 23 20 B/P (MAP) 121/70 (87) 114/66 (82) 108/64 (79) 148/71 (96) Pulse Ox 100 100 100 100 O2 Delivery Room Air Room Air Room Air Room Air 10/05/16 09:45 Temp 97.3 97.3 Pulse 95 Resp 18 B/P (MAP) 122/63 (82) Pulse Ox 100 O2 Delivery Room Air Intake and Output 10/04/16 10/04/16 10/05/16 14:59 22:59 06:59 Intake Total 3300 ml 4507 ml Output Total 237 ml 1262 ml Balance 3063 ml 3245 ml FABIANA DEL VALLE MD Oct 05, 2016 10:08
[2016-10-05 10:28] LABS: % SAT IRON 12 % (15-34); IRON,SERUM 21 ug/dL (65-175)
--- NOTE | 2016-10-05 10:34 | CONS ---
DATE OF CONSULTATION: ATTENDING PHYSICIAN: Dr. Flowers. REASON FOR CONSULTATION: Abnormal arterial blood gases, metabolic acidosis. HISTORY OF PRESENT ILLNESS: The patient is an 85-year-old -[place] male who has baseline poor functional status. He is very weak and cachectic. He was brought into the Emergency Room after he was found to be less responsive for the past 2 days. His creatinine was 7. The patient had tall T-waves and was related to hyperkalemia. His arterial blood gases revealed a pH of 7.0, pCO2 of 24 and a pO2 of 342 with a bicarbonate of only 6. The patient's BUN and creatinine was 180 and 5.8. His lactic acid was 6.4. He was started on antibiotics as clinical suspicion was related to sepsis. He was also started on vasopressor. His lactic acid has down and his latest blood gases showed a pH of 7.35, pCO2 of 21, pO2 of 85. Currently, he is more awake, following commands to some extent. His chest x-ray showed questionable atelectasis in the left lower lobe. His lactic acid is down to 1.9. PAST MEDICAL HISTORY: Significant for history of COPD, hypertension, CVA, history of muscle atrophy, diabetes. PAST SURGICAL HISTORY: Total hip replacement. FAMILY HISTORY: Heart disease. SOCIAL HISTORY: Currently does not smoke cigarettes. ALLERGIES: None. CURRENT MEDICATIONS: Reviewed as listed in the MRAD including antibiotic, vancomycin and Zosyn. REVIEW OF SYSTEMS: Limited, but pertinent positives discussed in my history of present illness. PHYSICAL EXAMINATION: GENERAL: He is awake, following some commands. VITAL SIGNS: Blood pressure 148/71. Afebrile. HEENT: Sclerae nonicteric. NECK: Supple. LUNGS: Diminished breath sounds. CARDIOVASCULAR: Regular rate and rhythm. ABDOMEN: Soft. EXTREMITIES: With 1+ pitting edema. He has a left inguinal hernia. LABORATORY DATA: Reviewed. BUN 180, creatinine 5.8, bicarbonate is 14, which is improved. Potassium is 5.2. INR is 1.7. White cell count 10.9, hemoglobin 13.0, platelets are 234. IMPRESSION: 1. Acute respiratory failure secondary to septic shock. 2. Severe metabolic acidosis with lactic acidosis. This is secondary to a combination of septic shock and acute on chronic renal failure. 3. No definite pneumonia seen on the chest x-ray. 4. Encephalopathy related to septic shock, clinically improving. 5. Acute on chronic renal failure. 6. Anemia. Improved on current labs. RECOMMENDATIONS: 1. From a pulmonary standpoint, he is stable, continue nasal cannula. 2. Metabolic acidosis has improved. 3. Follow renal recommendation. At present, the decision has to be made whether he needs dialysis versus comfort care. He is partial code and not to be intubated. 4. Continue broad-spectrum antibiotics. 5. Follow blood cultures. 6. Follow urine cultures. 7. Continue pressor support. 8. Consult palliative care to discuss the goals of care. I would recommend a complete DNR/DNI. If patient's family decide not to do dialysis, then comfort care would be the reasonable option. 9. Discussed with RN. Critical care time 35 minutes. SOWMYA SHEPARD MD DR: ANNABEL/scout JOB#: [id number] / [id number]
--- NOTE | 2016-10-05 11:34 | PDOC2 ---
CONSULT Date of Consult Date of Consult DATE: 10/05/16 TIME: 11:27 Reason for Consult Reason for Consult: WILLIAM Referring Physician Referring Physician: IVON Identification/Chief Complaint Chief Complaint FOUND TO BE POORLY RESPONSIVE Source Source: Chart review History of Present Illness Reason for Visit: THIS IS AN 85 YR OLD ADMITTED VIA THE ER AFTER HIS BROTHER FOUND HIM TO BE POORLY RESPONSIVE. ON ADMIT HE IS HYPOTENSIVE, POORLY RESPONSIVE AND APPEARS CACHECTIC AND NOTED TO WEIGH ABOUT 80 LBS. ALSO NOTED TO BE ANEMIA WITH WILLIAM AND SEVER HYPERKALEMIA, MET ACIDOSIS AND HYPOTHERMIA. HIS LFTS AND NH3 LEVELS ARE ALSO UP. HE CAN'T GIVE ANY HX. HE WAS ALSO HYPOGLYCEMIC Past Medical History Cardiovascular: HTN Pulmonary: COPD CENTRAL NERVOUS SYSTEM: CVA GI: No pertinent hx Heme/Onc: No pertinent hx Hepatobiliary: No pertinent hx Psych: No pertinent hx Musculoskeletal: Muscle atrophy Rheumatologic: No pertinent hx Infectious disease: No pertinent hx Renal/: No pertinent hx Endocrine: Diabetes Past Surgical History Past Surgical History: Total hip replacement Family History Family History: No Significant, Heart Disease Social History No ALCOHOL: none Drugs: None Lives: with Family Current Problem List Problem List Problems Medical Problems: (1) Anemia Status: Acute (2) Encephalopathy acute Status: Acute (3) GI bleed Status: Acute (4) Hyperkalemia Status: Acute (5) Renal failure Status: Acute (6) Septic shock Status: Acute Current Medications Current Medications Current Medications Sodium Chloride 1,000 ml @ 1,000 mls/hr 1X ONCE IV Last administered on 16:55; Start 10/04/16 at 16:45; Stop 10/04/16 at 17:44; Status DC Norepinephrine Bitartrate 250 ml @ 0 mls/hr 1X ONCE IV Last administered on 16:55; Start 10/04/16 at 16:45; Stop 10/04/16 at 16:50; Status DC Piperacillin Sod/ Tazobactam Sod 3.375 gm/Sodium Chloride 50 ml @ 100 mls/hr 1X ONCE IV Last administered on 10/04/16 16:57; Start 10/04/16 at 16:45; Stop 10/04/16 at 17:14; Status DC Vancomycin HCl 250 ml @ 250 mls/hr 1X ONCE IV ; Start 10/04/16 at 17:30; Stop 10/04/16 at 18:29; Status Cancel Albuterol Sulfate (Ventolin Neb Soln) 2.5 mg 1X ONCE NEB Last administered on 10/04/16 17:08; Start 10/04/16 at 17:00; Stop 10/04/16 at 17:01; Status DC Calcium Gluconate (Calcium Gluconate) 1,000 mg 1X ONCE IV Last administered on 10/04/16 16:57; Start 10/04/16 at 17:00; Stop 10/04/16 at 17:01; Status DC Insulin Human Regular (NovoLIN R VIAL) 10 unit 1X ONCE IV Last administered on 10/04/16 16:59; Start 10/04/16 at 17:00; Stop 10/04/16 at 17:01; Status DC Sodium Chloride 1,000 ml @ 1,000 mls/hr 1X ONCE IV Last administered on 17:09; Start 10/04/16 at 17:15; Stop 10/04/16 at 18:14; Status DC Pantoprazole Sodium (Protonix Vial) 40 mg 1X ONCE IVP Last administered on 17:12; Start 10/04/16 at 17:15; Stop 10/04/16 at 17:16; Status DC Sodium Chloride 1,000 ml @ 1,000 mls/hr 1X ONCE IV Last administered on 17:30; Start 10/04/16 at 17:30; Stop 10/04/16 at 18:29; Status DC Sodium Bicarbonate 150 meq/Dextrose 1,150 ml @ 125 mls/hr 1X ONCE IV Last administered on 10/04/16 17:53; Start 10/04/16 at 17:45; Stop 10/05/16 at 02:56 ; Status DC Ondansetron HCl (Zofran) 4 mg PRN Q8HRS PRN IV NAUSEA/VOMITING; Start 10/04/16 at 17:30; Stop 10/04/16 at 18:45; Status DC Ondansetron HCl (Zofran) 4 mg PRN Q6HRS PRN IV NAUSEA/VOMITING; Start 10/04/16 at 18:41; Stop 10/05/16 at 18:40 Sodium Chloride 1,000 ml @ 125 mls/hr Q8H IV Last administered on 10/05/16 10 :59; Start 10/04/16 at 19:00 Heparin Sodium (Porcine) (Heparin Sq) 5,000 unit Q8HRS SQ ; Start 10/04/16 at 22 :00; Stop 10/04/16 at 22:00; Status DC Pantoprazole Sodium (Protonix Vial) 40 mg DAILYAC IVP Last administered on 10/05 07:28; Start 10/05/16 at 07:30 Acetaminophen (Tylenol) 500 mg PRN Q6HRS PRN PO MILD PAIN / TEMP; Start at 18:45 Piperacillin Sod/ Tazobactam Sod (Zosyn Per Pharmacy) 1 each PRN DAILY PRN MC SEE COMMENTS; Start 10/04/16 at 19:15 Piperacillin Sod/ Tazobactam Sod 2.25 gm/Sodium Chloride 50 ml @ 100 mls/hr Q8HRS IV Last administered on 10/05/16 06:22; Start 10/04/16 at 22:00 Vancomycin HCl 1 gm/Sodium Chloride 250 ml @ 250 mls/hr 1X ONCE IV Last administered on 10/04/16 22:35; Start 10/04/16 at 21:30; Stop 10/04/16 at 22:29 ; Status DC Norepinephrine Bitartrate 250 ml @ 0 mls/hr CONT PRN IV SEE I/O RECORD Last administered on 10/05/16 09:28; Start 10/04/16 at 22:30 Lactulose 20 gm BID PO ; Start 10/05/16 at 10:00; Stop 10/05/16 at 10:34; Status DC Active Scripts Active [place] 5-325 Tablet (Acetaminophen/Hydrocodone Bitart) 1 Each Tablet 1 Tab PO PRN Q6HRS PRN Reported Indapamide 2.5 Mg Tablet 1 Tab PO DAILY Amlodipine Besylate 10 Mg Tablet 1 Tab PO DAILY Haloperidol 2 Mg Tablet 1 Tab PO QHS Glipizide Er (Glipizide) 5 Mg Tab.er.24 1 Tab PO DAILY Benztropine Mesylate 2 Mg Tablet 2 Mg PO DAILY Zoloft (Sertraline Hcl) 25 Mg Tablet 1 Tab PO DAILY Allergies Allergies: Coded Allergies: No Known Drug Allergies (Unverified , 09/24/14) ROS Review of System UNABLE TO OBTAIN Physical Exam General: Cooperative HEENT: Atraumatic, Other (DRY MUCOSA) Lungs: Clear to auscultation Heart: Regular rate, Other (TACHY) Abdomen: Normal bowel sounds, Soft Skin: No rashes Neuro: Other (CONFUSED) Psych/Mental Status: Other (CONFUSED) MUSCULOSKELETAL: Other (DIFFUSELY CACHECTIC) Vitals VITALS Vital Signs Date Time Temp Pulse Resp B/P (MAP) Pulse Ox O2 Delivery O2 Flow Rate FiO2 10/05/16 11:00 97.2 96 16 113/71 (85) 100 Room Air 97.2 10/05/16 05:30 2.0 Labs Labs Laboratory Tests Test 10/04/16 16:36 10/04/16 16:38 10/04/16 16:45 10/04/16 17:11 White Blood Count 5.4 x10^3/uL (4.0-11.0) Red Blood Count 2.64 x10^6/uL (4.30-5.70) Hemoglobin 7.3 g/dL (13.0-17.5) Hematocrit 23.2 % (39.0-53.0) Mean Corpuscular Volume 88 fL (79-100) Mean Corpuscular Hemoglobin 27 pg (25-35) Mean Corpuscular Hemoglobin Concent 31 g/dL (31-37) Red Cell Distribution Width 14.5 % (11.5-14.5) Platelet Count 244 x10^3/uL (140-400) Neutrophils (%) (Auto) 90 % (31-73) Lymphocytes (%) (Auto) 8 % (24-48) Monocytes (%) (Auto) 2 % (0-9) Eosinophils (%) (Auto) 0 % (0-3) Basophils (%) (Auto) 0 % (0-3) Neutrophils # (Auto) 4.9 x10^3uL (1.8-7.7) Lymphocytes # (Auto) 0.4 x10^3/uL (1.0-4.8) Monocytes # (Auto) 0.1 x10^3/uL (0.0-1.1) Eosinophils # (Auto) 0.0 x10^3/uL (0.0-0.7) Basophils # (Auto) 0.0 x10^3/uL (0.0-0.2) Segmented Neutrophils % 75 % (35-66) Band Neutrophils % 15 % (0-9) Lymphocytes % 7 % (24-48) Monocytes % 2 % (0-10) Metamyelocytes % 1 % (0-0) Nucleated Red Blood Cells 2 Toxic Granulation Mod Toxic Vacuolation Slight Platelet Estimate Adequate (ADEQUATE) Schistocytes Occ Prothrombin Time 18.7 SEC (11.7-14.0) Prothromb Time International Ratio 1.7 (0.8-1.1) Activated Partial Thromboplast Time 52 SEC (24-38) Sodium Level 133 mmol/L (136-145) Potassium Level 7.4 mmol/L (3.5-5.1) Chloride Level 100 mmol/L (98-107) Carbon Dioxide Level 10 mmol/L (21-32) Anion Gap 23 (6-14) Blood Urea Nitrogen 208 mg/dL (8-26) Creatinine 7.6 mg/dL (0.7-1.3) Estimated GFR (Cockcroft-Gault) 8.3 BUN/Creatinine Ratio 27 (6-20) Glucose Level 443 mg/dL (70-99) Lactic Acid Level 6.2 mmol/L (0.4-2.0) Calcium Level 8.1 mg/dL (8.5-10.1) Magnesium Level 3.1 mg/dL (1.8-2.4) Total Bilirubin 0.4 mg/dL (0.2-1.0) Aspartate Amino Transf (AST/SGOT) 481 U/L (15-37) Alanine Aminotransferase (ALT/SGPT) 284 U/L (16-63) Alkaline Phosphatase 95 U/L (46-116) Ammonia 193 mcmol/L (11-34) Creatine Kinase 132 U/L (39-308) Troponin I Quantitative < 0.017 ng/mL (0.000-0.055) PH-Fct-E-Type Natriuretic Peptide 508 pg/mL (0-449) Total Protein 5.4 g/dL (6.4-8.2) Albumin 1.8 g/dL (3.4-5.0) Albumin/Globulin Ratio 0.5 (1.0-1.7) Lipase 190 U/L (73-393) Thyroid Stimulating Hormone (TSH) 5.685 uIU/mL (0.358-3.74) Salicylates Level < 2.8 mg/dL (2.8-20.0) Salicylate Last Dose Date Salicylate Last Dose Time Acetaminophen Level 4.97 mcg/ml (10-30) Acetaminophen Last Dose Date Acetaminophen Last Dose Time Ethyl Alcohol Level < 10 mg/dL (0-10) Glucose (Fingerstick) 412 mg/dL (70-99) Stool Occult Blood Positive (NEG) Urine Collection Type U cath Urine Color Brown Urine Clarity Turbid Urine pH 8.0 Urine Specific [place] 1.020 Urine Protein >=300 mg/dL (NEG-TRACE) Urine Glucose (UA) Negative mg/dL (NEG) Urine Ketones (Stick) Trace mg/dL (NEG) Urine Blood Large (NEG) Urine Nitrite Positive (NEG) Urine Bilirubin Negative (NEG) Urine Urobilinogen Dipstick 0.2 mg/dL (0.2 mg/dL) Urine Leukocyte Esterase Large (NEG) Urine RBC Tntc /HPF (0-2) Urine WBC Tntc /HPF (0-4) Urine Squamous Epithelial Cells Occ /LPF Urine Bacteria Many /HPF (0-FEW) Urine Mucus Marked /LPF Urine Opiates Screen Neg (NEG) Urine Methadone Screen Neg (NEG) Urine Barbiturates Neg (NEG) Urine Phencyclidine Screen Neg (NEG) Urine Amphetamine/Methamphetamine Neg (NEG) Urine Benzodiazepines Screen Neg (NEG) Urine Cocaine Screen Neg (NEG) Urine Cannabinoids Screen Neg (NEG) Urine Ethyl Alcohol Neg (NEG) Test 10/04/16 17:17 10/04/16 17:30 10/04/16 17:42 10/04/16 18:57 Glucose (Fingerstick) 195 mg/dL (70-99) 91 mg/dL (70-99) 89 mg/dL (70-99) O2 Saturation 99 % (92-99) Arterial Blood pH 7.00 (7.35-7.45) Arterial Blood pH (Temp corrected) 7.05 Arterial Blood pCO2 at Patient Temp 24 mmHg (35-46) Arterial Blood pCO2 (Temp correct) 20 mmHg Arterial Blood pO2 at Patient Temp 342 mmHg (65-108) Arterial Blood pO2 (Temp corrected) 321 mmHg Arterial Blood HCO3 6 mmol/L (21-28) Arterial Blood Base Excess -23 mmol/L (-3-3) Oxyhemoglobin 96.1 % Methemoglobin 0.3 % (0.0-1.9) Carbon Monoxide, Quantitative 2.8 % (0.0-1.9) FiO2 100.0 Test 10/04/16 20:35 10/04/16 22:10 10/05/16 05:10 10/05/16 08:35 Lactic Acid Level 6.4 mmol/L (0.4-2.0) 1.9 mmol/L (0.4-2.0) Potassium Level 5.9 mmol/L (3.5-5.1) 5.2 mmol/L (3.5-5.1) Free Thyroxine 1.15 ng/dL (0.76-1.46) Free Triiodothyronine (T3) pg/mL 0.95 pg/mL (2.18-3.98) White Blood Count 10.9 x10^3/uL (4.0-11.0) Red Blood Count 4.53 x10^6/uL (4.30-5.70) Hemoglobin 13.0 g/dL (13.0-17.5) Hematocrit 38.3 % (39.0-53.0) Mean Corpuscular Volume 84 fL (79-100) Mean Corpuscular Hemoglobin 29 pg (25-35) Mean Corpuscular Hemoglobin Concent 34 g/dL (31-37) Red Cell Distribution Width 14.6 % (11.5-14.5) Platelet Count 234 x10^3/uL (140-400) Neutrophils (%) (Auto) 96 % (31-73) Lymphocytes (%) (Auto) 1 % (24-48) Monocytes (%) (Auto) 3 % (0-9) Eosinophils (%) (Auto) 0 % (0-3) Basophils (%) (Auto) 0 % (0-3) Neutrophils # (Auto) 10.4 x10^3uL (1.8-7.7) Lymphocytes # (Auto) 0.1 x10^3/uL (1.0-4.8) Monocytes # (Auto) 0.3 x10^3/uL (0.0-1.1) Eosinophils # (Auto) 0.0 x10^3/uL (0.0-0.7) Basophils # (Auto) 0.0 x10^3/uL (0.0-0.2) Segmented Neutrophils % 68 % (35-66) Band Neutrophils % 27 % (0-9) Lymphocytes % 1 % (24-48) Monocytes % 4 % (0-10) Platelet Estimate Adequate (ADEQUATE) Sodium Level 143 mmol/L (136-145) Chloride Level 110 mmol/L (98-107) Carbon Dioxide Level 14 mmol/L (21-32) Anion Gap 19 (6-14) Blood Urea Nitrogen 180 mg/dL (8-26) Creatinine 5.8 mg/dL (0.7-1.3) Estimated GFR (Cockcroft-Gault) 11.3 Glucose Level 76 mg/dL (70-99) Calcium Level 7.4 mg/dL (8.5-10.1) O2 Saturation 95 % (92-99) Arterial Blood pH 7.35 (7.35-7.45) Arterial Blood pCO2 at Patient Temp 21 mmHg (35-46) Arterial Blood pO2 at Patient Temp 85 mmHg (65-108) Arterial Blood HCO3 12 mmol/L (21-28) Arterial Blood Base Excess -12 mmol/L (-3-3) FiO2 21 Test 10/05/16 10:00 Reticulocyte Count (auto) 0.7 % (0.5-2.5) Potassium Level 4.8 mmol/L (3.5-5.1) Iron Level 21 ug/dL (65-175) Total Iron Binding Capacity 173 ug/dL (250-450) Iron Saturation 12 % (15-34) Ammonia 26 mcmol/L (11-34) Laboratory Tests Test 10/04/16 16:36 10/04/16 16:38 10/04/16 16:45 10/04/16 17:11 White Blood Count 5.4 x10^3/uL (4.0-11.0) Red Blood Count 2.64 x10^6/uL (4.30-5.70) Hemoglobin 7.3 g/dL (13.0-17.5) Hematocrit 23.2 % (39.0-53.0) Mean Corpuscular Volume 88 fL (79-100) Mean Corpuscular Hemoglobin 27 pg (25-35) Mean Corpuscular Hemoglobin Concent 31 g/dL (31-37) Red Cell Distribution Width 14.5 % (11.5-14.5) Platelet Count 244 x10^3/uL (140-400) Neutrophils (%) (Auto) 90 % (31-73) Lymphocytes (%) (Auto) 8 % (24-48) Monocytes (%) (Auto) 2 % (0-9) Eosinophils (%) (Auto) 0 % (0-3) Basophils (%) (Auto) 0 % (0-3) Neutrophils # (Auto) 4.9 x10^3uL (1.8-7.7) Lymphocytes # (Auto) 0.4 x10^3/uL (1.0-4.8) Monocytes # (Auto) 0.1 x10^3/uL (0.0-1.1) Eosinophils # (Auto) 0.0 x10^3/uL (0.0-0.7) Basophils # (Auto) 0.0 x10^3/uL (0.0-0.2) Segmented Neutrophils % 75 % (35-66) Band Neutrophils % 15 % (0-9) Lymphocytes % 7 % (24-48) Monocytes % 2 % (0-10) Metamyelocytes % 1 % (0-0) Nucleated Red Blood Cells 2 Toxic Granulation Mod Toxic Vacuolation Slight Platelet Estimate Adequate (ADEQUATE) Schistocytes Occ Prothrombin Time 18.7 SEC (11.7-14.0) Prothromb Time International Ratio 1.7 (0.8-1.1) Activated Partial Thromboplast Time 52 SEC (24-38) Sodium Level 133 mmol/L (136-145) Potassium Level 7.4 mmol/L (3.5-5.1) Chloride Level 100 mmol/L (98-107) Carbon Dioxide Level 10 mmol/L (21-32) Anion Gap 23 (6-14) Blood Urea Nitrogen 208 mg/dL (8-26) Creatinine 7.6 mg/dL (0.7-1.3) Estimated GFR (Cockcroft-Gault) 8.3 BUN/Creatinine Ratio 27 (6-20) Glucose Level 443 mg/dL (70-99) Lactic Acid Level 6.2 mmol/L (0.4-2.0) Calcium Level 8.1 mg/dL (8.5-10.1) Magnesium Level 3.1 mg/dL (1.8-2.4) Total Bilirubin 0.4 mg/dL (0.2-1.0) Aspartate Amino Transf (AST/SGOT) 481 U/L (15-37) Alanine Aminotransferase (ALT/SGPT) 284 U/L (16-63) Alkaline Phosphatase 95 U/L (46-116) Ammonia 193 mcmol/L (11-34) Creatine Kinase 132 U/L (39-308) Troponin I Quantitative < 0.017 ng/mL (0.000-0.055) TC-Uaj-T-Type Natriuretic Peptide 508 pg/mL (0-449) Total Protein 5.4 g/dL (6.4-8.2) Albumin 1.8 g/dL (3.4-5.0) Albumin/Globulin Ratio 0.5 (1.0-1.7) Lipase 190 U/L (73-393) Thyroid Stimulating Hormone (TSH) 5.685 uIU/mL (0.358-3.74) Salicylates Level < 2.8 mg/dL (2.8-20.0) Salicylate Last Dose Date Salicylate Last Dose Time Acetaminophen Level 4.97 mcg/ml (10-30) Acetaminophen Last Dose Date Acetaminophen Last Dose Time Ethyl Alcohol Level < 10 mg/dL (0-10) Glucose (Fingerstick) 412 mg/dL (70-99) Stool Occult Blood Positive (NEG) Urine Collection Type U cath Urine Color Brown Urine Clarity Turbid Urine pH 8.0 Urine Specific [place] 1.020 Urine Protein >=300 mg/dL (NEG-TRACE) Urine Glucose (UA) Negative mg/dL (NEG) Urine Ketones (Stick) Trace mg/dL (NEG) Urine Blood Large (NEG) Urine Nitrite Positive (NEG) Urine Bilirubin Negative (NEG) Urine Urobilinogen Dipstick 0.2 mg/dL (0.2 mg/dL) Urine Leukocyte Esterase Large (NEG) Urine RBC Tntc /HPF (0-2) Urine WBC Tntc /HPF (0-4) Urine Squamous Epithelial Cells Occ /LPF Urine Bacteria Many /HPF (0-FEW) Urine Mucus Marked /LPF Urine Opiates Screen Neg (NEG) Urine Methadone Screen Neg (NEG) Urine Barbiturates Neg (NEG) Urine Phencyclidine Screen Neg (NEG) Urine Amphetamine/Methamphetamine Neg (NEG) Urine Benzodiazepines Screen Neg (NEG) Urine Cocaine Screen Neg (NEG) Urine Cannabinoids Screen Neg (NEG) Urine Ethyl Alcohol Neg (NEG) Test 10/04/16 17:17 6/14/17 17:30 10/04/16 17:42 10/04/16 18:57 Glucose (Fingerstick) 195 mg/dL (70-99) 91 mg/dL (70-99) 89 mg/dL (70-99) O2 Saturation 99 % (92-99) Arterial Blood pH 7.00 (7.35-7.45) Arterial Blood pH (Temp corrected) 7.05 Arterial Blood pCO2 at Patient Temp 24 mmHg (35-46) Arterial Blood pCO2 (Temp correct) 20 mmHg Arterial Blood pO2 at Patient Temp 342 mmHg (65-108) Arterial Blood pO2 (Temp corrected) 321 mmHg Arterial Blood HCO3 6 mmol/L (21-28) Arterial Blood Base Excess -23 mmol/L (-3-3) Oxyhemoglobin 96.1 % Methemoglobin 0.3 % (0.0-1.9) Carbon Monoxide, Quantitative 2.8 % (0.0-1.9) FiO2 100.0 Test 10/04/16 20:35 10/04/16 22:10 10/05/16 05:10 10/05/16 08:35 Lactic Acid Level 6.4 mmol/L (0.4-2.0) 1.9 mmol/L (0.4-2.0) Potassium Level 5.9 mmol/L (3.5-5.1) 5.2 mmol/L (3.5-5.1) Free Thyroxine 1.15 ng/dL (0.76-1.46) Free Triiodothyronine (T3) pg/mL 0.95 pg/mL (2.18-3.98) White Blood Count 10.9 x10^3/uL (4.0-11.0) Red Blood Count 4.53 x10^6/uL (4.30-5.70) Hemoglobin 13.0 g/dL (13.0-17.5) Hematocrit 38.3 % (39.0-53.0) Mean Corpuscular Volume 84 fL (79-100) Mean Corpuscular Hemoglobin 29 pg (25-35) Mean Corpuscular Hemoglobin Concent 34 g/dL (31-37) Red Cell Distribution Width 14.6 % (11.5-14.5) Platelet Count 234 x10^3/uL (140-400) Neutrophils (%) (Auto) 96 % (31-73) Lymphocytes (%) (Auto) 1 % (24-48) Monocytes (%) (Auto) 3 % (0-9) Eosinophils (%) (Auto) 0 % (0-3) Basophils (%) (Auto) 0 % (0-3) Neutrophils # (Auto) 10.4 x10^3uL (1.8-7.7) Lymphocytes # (Auto) 0.1 x10^3/uL (1.0-4.8) Monocytes # (Auto) 0.3 x10^3/uL (0.0-1.1) Eosinophils # (Auto) 0.0 x10^3/uL (0.0-0.7) Basophils # (Auto) 0.0 x10^3/uL (0.0-0.2) Segmented Neutrophils % 68 % (35-66) Band Neutrophils % 27 % (0-9) Lymphocytes % 1 % (24-48) Monocytes % 4 % (0-10) Platelet Estimate Adequate (ADEQUATE) Sodium Level 143 mmol/L (136-145) Chloride Level 110 mmol/L (98-107) Carbon Dioxide Level 14 mmol/L (21-32) Anion Gap 19 (6-14) Blood Urea Nitrogen 180 mg/dL (8-26) Creatinine 5.8 mg/dL (0.7-1.3) Estimated GFR (Cockcroft-Gault) 11.3 Glucose Level 76 mg/dL (70-99) Calcium Level 7.4 mg/dL (8.5-10.1) O2 Saturation 95 % (92-99) Arterial Blood pH 7.35 (7.35-7.45) Arterial Blood pCO2 at Patient Temp 21 mmHg (35-46) Arterial Blood pO2 at Patient Temp 85 mmHg (65-108) Arterial Blood HCO3 12 mmol/L (21-28) Arterial Blood Base Excess -12 mmol/L (-3-3) FiO2 21 Test //17 10:00 Reticulocyte Count (auto) 0.7 % (0.5-2.5) Potassium Level 4.8 mmol/L (3.5-5.1) Iron Level 21 ug/dL (65-175) Total Iron Binding Capacity 173 ug/dL (250-450) Iron Saturation 12 % (15-34) Ammonia 26 mcmol/L (11-34) Assessment/Plan Assessment/Plan IMP WILLIAM HYPERKALEMIA MET ACIDOSIS-INCREASE LACTIC ACID LIVER FAILURE WITH INCREASE NH3 UREMIA PROB CKD DEMENTIA HYPOTENSION DEHYDRATION CACHEXIA MALNUTRITION HYPOTHERMIA PLAN IVF'S VOLUME EXPAND PPN SUPPORTIVE CARE NO PLANS FOR DIALYSIS SUGGEST PALLIATIVE/COMFORT CARE D/W DR SHEPARD AND PALLIATIVE CARE MILLICENT HORNE MD Oct 05, 2016 11:34
[2016-10-05] MEDS: AMINO AC 3%/ELECTROLYTE/GLYCER 1,000 ML IV SCH (11:49)
--- NOTE | 2016-10-05 11:57 | RAD ---
Abdominal ultrasound, 10/05/2016: History: Abnormal liver enzymes, elevated ammonia level The study was compromised by the patient's lack of mobility and inability to cooperate. The gallbladder is not visualized and may be surgically absent. No bile duct dilatation is seen. The pancreas is poorly defined. The spleen could not be visualized. The kidneys demonstrate increased echogenicity. There is a small 2 cm cyst in the right kidney. There are prominent cystic areas in the left kidney. It is not included entirely clear whether these represent cysts or hydronephrosis. Aortic calcific plaquing is present without evidence of aneurysm. The visualized portions of the inferior vena cava are unremarkable. There appears to be a trace amount of right-sided pleural fluid. IMPRESSION: 1. Suboptimal exam. 2. Nonvisualization of the gallbladder suggesting surgical absence. 3. Increased renal parenchymal echogenicity compatible with medical renal disease. 4. Right renal cyst. 5. Probable left hydronephrosis.
[2016-10-05 12:20] LABS: FOLATE > 24.00 ng/ml (3.2-20.0); VITAMIN-B12 > 2000 pg/mL (247-911)
[2016-10-05] MEDS ORDERED: GLIP2.5T4 PO (13:19)
[2016-10-05] MEDS ORDERED: LISI-334 PO (13:19)
[2016-10-05] MEDS ORDERED: HALO2TAB PO (13:19)
[2016-10-05] MEDS ORDERED: BENZ0.5T PO (13:19)
[2016-10-05] MEDS ORDERED: OMEP20CA9 PO (13:22)
[2016-10-05] MEDS ORDERED: LEVO5TAB2 PO (13:22)
[2016-10-05] MEDS ORDERED: CETI10TA16 PO (13:22)
--- NOTE | 2016-10-05 16:28 | PDOC2 ---
PALLIATIVE CARE Palliative Care Note Palliative Care Patient responds to painful stimuli. Code Status: DNI Met with patient's brother Eric. States he is decision maker. No AD. Patient had 11 siblings; 1 brother and 3 sister living. Reviewed current medical condition with Eric; Renal Failure, UTI, Anemia, GI Bleed-no further bleeding, Hyperkalemia; Septic Shock. Off pressor now. Labs reviewed; Alb 1.8; BUN 180 Creat. 5.8 Patient is blind, has lived with brother for 20 years. Eric states his brother has been declining last few weeks and rapidly in the last 10-15 days. 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 Kadie; Important to patient Discussed options for care; patient not a candidate for dialysis; Eric wants to continue treating UTI--does not want to prolong his dying or suffering. Does not want him to go to [facility]. Patient has 2 care-givers--one for 6am to 12 noon; and another arriving at 3pm and staying late evening. Discussed Hospice. Informed they are a visiting team. With Hospice the goal would be comfort--keeping him home with nurses coming to him; allowing patient to peacefully and comfortably at home. Eric requests hospice care. No preference. Requested names of several hospice agencies in the area so he could review these with his daughter. Discussed resuscitation: With the goal of comfort, Eric requests DNR/DNI. Understands that patient likely would if no attempts were made to resuscitate. Understands that he will not call 911 when heart stops and stops breathing but instructed to call Hospice Agency. Outside the Hospital DNR/DNI form signed by Eric. Eric verbalize understanding. Discussed nutrition; patient is not alert enough to complete swallow evaluation. Discussed importance of good oral care. Discussed pleasure feeding. If patient improves and requests few sips Eric would like him to have few bites/sips. Understanding he could aspirate/get pneumonia and . Eric acknowledges understands and that Hospice will also guide him on this. Plan: Home with Hospice---Eileen ARNETT will assist with arrangements. DNR/DNI Outside the Hospital form signed by Eric/brother. DME: patient already has hospital bed. Currently not on oxygen-- may need later. LOUIE ELIZONDO Oct 05, 2016 16:27
[2016-10-05] MEDS ORDERED: LORazepam 1 MG TABLET PO PRN (18:45)
[2016-10-05] MEDS: DEXTROSE 50% 25 GM / 50ML DISP.SYRIN. IV PRN (18:55)
[2016-10-05] MEDS: MORPHINE SULFATE 4 MG/ML DISP.SYRIN. IV PRN (18:57)
[2016-10-05] MEDS: IV DEXTROSE 10% 1,000 ML IV SCH (18:57)
[2016-10-05] MEDS ORDERED: SCOPOLAMINE 1.5MG PATCH. TD SCH (19:00)
[2016-10-05] MEDS ORDERED: SCOPOLAMINE 1.5MG PATCH. TD PRN (19:15)
[2016-10-06] VITALS (12 sets, daily range): BP systolic 106–143; BP diastolic 52–85
[2016-10-06] MEDS: AMINO AC 3%/ELECTROLYTE/GLYCER 1,000 ML IV SCH (00:36)
[2016-10-06] MEDS: DEXTROSE 50% 25 GM / 50ML DISP.SYRIN. IV PRN ×6 (00:36→10:30)
[2016-10-06] MEDS: IV NORMAL SALINE 1000ML BAG 1,000 ML IV SCH (06:06)
[2016-10-06 06:13] LABS: CALCIUM 7.9 mg/dL (8.5-10.1); CREATININE 5.6 mg/dL (0.7-1.3); GFR 11.7; POTASSIUM 4.8 mmol/L (3.5-5.1)
[2016-10-06] MEDS: IV DEXTROSE 10% 1,000 ML IV SCH (06:49)
[2016-10-06] MEDS: PIPERACILLIN/TAZOBACTAM 2.25 GM in IV NORMAL SALINE 50ML 50 ML IV SCH (07:08)
[2016-10-06] MEDS: PANTOPRAZOLE IV PUSH 40 MG VIAL. IVP SCH (07:13)
[2016-10-06] MEDS ORDERED: methylPREDNISolone SOD SUCC PF 40 MG/ML VIAL. IV ONE (07:15)
[2016-10-06] MEDS: MORPHINE SULFATE 4 MG/ML DISP.SYRIN. IV PRN ×2 (08:15→15:04)
--- NOTE | 2016-10-06 10:39 | PDOC ---
PROGRESS NOTES Chief Complaint Chief Complaint 1. HYPOTENSIVE SHOCK needing pressors 2. AGAP metabolic acidosis, WILLIAM severe 3. Hyperkalemia with EKG changes 4. Metabolic encephalopathy 5. BRBPR 6. encephalopathy 7, UTI 8. Severe malnourishment/cachexia 9. 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 Elevated TSH (5) 11. Hypoglycemia Plan DNR/DNI Poor prognosis and qualify life due to several acute com morbid conditions per family, comfort care measure, home with hospice SW following dextrose pnr for hyperglycemia. IV Morphine and IV ativan prn for comfort. and agitation History of Present Illness History of Present Illness Vitals Vitals Vital Signs Date Time Temp Pulse Resp B/P (MAP) Pulse Ox O2 Delivery O2 Flow Rate FiO2 10/06/16 10:00 82 20 140/67 (91) 97 Room Air 10/06/16 08:00 97.4 97.4 Physical Exam General: Other (not alert, not responding to qusetions) Heart: Regular rate, Other (TACHY) Lungs: Clear Abdomen: Normal bowel sounds, Soft Extremities: No clubbing, No edema, Normal pulses, No tenderness/swelling Labs LABS Laboratory Tests Test 10/05/16 18:50 10/06/16 00:27 10/06/16 00:40 10/06/16 01:05 Glucose (Fingerstick) 80 mg/dL (70-99) 15 mg/dL (70-99) 21 mg/dL (70-99) Glucose Level 27 mg/dL (70-99) Test 10/06/16 01:38 10/06/16 05:00 10/06/16 07:21 10/06/16 07:49 Glucose (Fingerstick) 131 mg/dL (70-99) 49 mg/dL (70-99) 114 mg/dL (70-99) Sodium Level 145 mmol/L (136-145) Potassium Level 4.8 mmol/L (3.5-5.1) Chloride Level 113 mmol/L (98-107) Carbon Dioxide Level 14 mmol/L (21-32) Anion Gap 18 (6-14) Blood Urea Nitrogen 154 mg/dL (8-26) Creatinine 5.6 mg/dL (0.7-1.3) Estimated GFR (Cockcroft-Gault) 11.7 Glucose Level 29 mg/dL (70-99) Calcium Level 7.9 mg/dL (8.5-10.1) Test 10/06/16 10:13 Glucose (Fingerstick) 22 mg/dL (70-99) Assessment and Plan Assessmemt and Plan Problems Medical Problems: (1) Anemia Status: Acute (2) Encephalopathy acute Status: Acute (3) GI bleed Status: Acute (4) Hyperkalemia Status: Acute (5) Renal failure Status: Acute (6) Septic shock Status: Acute Problems: Comment Review of Relevant I have reviewed the following items sushant (where applicable) has been applied. Labs Laboratory Tests Test 10/04/16 16:36 10/04/16 16:38 10/04/16 16:41 10/04/16 16:45 White Blood Count 5.4 x10^3/uL (4.0-11.0) Red Blood Count 2.64 x10^6/uL (4.30-5.70) Hemoglobin 7.3 g/dL (13.0-17.5) Hematocrit 23.2 % (39.0-53.0) Mean Corpuscular Volume 88 fL (79-100) Mean Corpuscular Hemoglobin 27 pg (25-35) Mean Corpuscular Hemoglobin Concent 31 g/dL (31-37) Red Cell Distribution Width 14.5 % (11.5-14.5) Platelet Count 244 x10^3/uL (140-400) Neutrophils (%) (Auto) 90 % (31-73) Lymphocytes (%) (Auto) 8 % (24-48) Monocytes (%) (Auto) 2 % (0-9) Eosinophils (%) (Auto) 0 % (0-3) Basophils (%) (Auto) 0 % (0-3) Neutrophils # (Auto) 4.9 x10^3uL (1.8-7.7) Lymphocytes # (Auto) 0.4 x10^3/uL (1.0-4.8) Monocytes # (Auto) 0.1 x10^3/uL (0.0-1.1) Eosinophils # (Auto) 0.0 x10^3/uL (0.0-0.7) Basophils # (Auto) 0.0 x10^3/uL (0.0-0.2) Segmented Neutrophils % 75 % (35-66) Band Neutrophils % 15 % (0-9) Lymphocytes % 7 % (24-48) Monocytes % 2 % (0-10) Metamyelocytes % 1 % (0-0) Nucleated Red Blood Cells 2 Toxic Granulation Mod Toxic Vacuolation Slight Platelet Estimate Adequate (ADEQUATE) Schistocytes Occ Prothrombin Time 18.7 SEC (11.7-14.0) Prothromb Time International Ratio 1.7 (0.8-1.1) Activated Partial Thromboplast Time 52 SEC (24-38) Sodium Level 133 mmol/L (136-145) Potassium Level 7.4 mmol/L (3.5-5.1) Chloride Level 100 mmol/L (98-107) Carbon Dioxide Level 10 mmol/L (21-32) Anion Gap 23 (6-14) Blood Urea Nitrogen 208 mg/dL (8-26) Creatinine 7.6 mg/dL (0.7-1.3) Estimated GFR (Cockcroft-Gault) 8.3 BUN/Creatinine Ratio 27 (6-20) Glucose Level 443 mg/dL (70-99) Lactic Acid Level 6.2 mmol/L (0.4-2.0) Calcium Level 8.1 mg/dL (8.5-10.1) Magnesium Level 3.1 mg/dL (1.8-2.4) Total Bilirubin 0.4 mg/dL (0.2-1.0) Aspartate Amino Transf (AST/SGOT) 481 U/L (15-37) Alanine Aminotransferase (ALT/SGPT) 284 U/L (16-63) Alkaline Phosphatase 95 U/L (46-116) Ammonia 193 mcmol/L (11-34) Creatine Kinase 132 U/L (39-308) Troponin I Quantitative < 0.017 ng/mL (0.000-0.055) CF-Src-Q-Type Natriuretic Peptide 508 pg/mL (0-449) Total Protein 5.4 g/dL (6.4-8.2) Albumin 1.8 g/dL (3.4-5.0) Albumin/Globulin Ratio 0.5 (1.0-1.7) Lipase 190 U/L (73-393) Thyroid Stimulating Hormone (TSH) 5.685 uIU/mL (0.358-3.74) Salicylates Level < 2.8 mg/dL (2.8-20.0) Salicylate Last Dose Date Salicylate Last Dose Time Acetaminophen Level 4.97 mcg/ml (10-30) Acetaminophen Last Dose Date Acetaminophen Last Dose Time Ethyl Alcohol Level < 10 mg/dL (0-10) Glucose (Fingerstick) 412 mg/dL (70-99) Bedside Troponin I 0.01 ng/ml (<0.08) Stool Occult Blood Positive (NEG) Test 10/04/16 17:11 10/04/16 17:17 10/04/16 17:30 10/04/16 17:42 Urine Collection Type U cath Urine Color Brown Urine Clarity Turbid Urine pH 8.0 Urine Specific [place] 1.020 Urine Protein >=300 mg/dL (NEG-TRACE) Urine Glucose (UA) Negative mg/dL (NEG) Urine Ketones (Stick) Trace mg/dL (NEG) Urine Blood Large (NEG) Urine Nitrite Positive (NEG) Urine Bilirubin Negative (NEG) Urine Urobilinogen Dipstick 0.2 mg/dL (0.2 mg/dL) Urine Leukocyte Esterase Large (NEG) Urine RBC Tntc /HPF (0-2) Urine WBC Tntc /HPF (0-4) Urine Squamous Epithelial Cells Occ /LPF Urine Bacteria Many /HPF (0-FEW) Urine Mucus Marked /LPF Urine Opiates Screen Neg (NEG) Urine Methadone Screen Neg (NEG) Urine Barbiturates Neg (NEG) Urine Phencyclidine Screen Neg (NEG) Urine Amphetamine/Methamphetamine Neg (NEG) Urine Benzodiazepines Screen Neg (NEG) Urine Cocaine Screen Neg (NEG) Urine Cannabinoids Screen Neg (NEG) Urine Ethyl Alcohol Neg (NEG) Glucose (Fingerstick) 195 mg/dL (70-99) 91 mg/dL (70-99) O2 Saturation 99 % (92-99) Arterial Blood pH 7.00 (7.35-7.45) Arterial Blood pH (Temp corrected) 7.05 Arterial Blood pCO2 at Patient Temp 24 mmHg (35-46) Arterial Blood pCO2 (Temp correct) 20 mmHg Arterial Blood pO2 at Patient Temp 342 mmHg (65-108) Arterial Blood pO2 (Temp corrected) 321 mmHg Arterial Blood HCO3 6 mmol/L (21-28) Arterial Blood Base Excess -23 mmol/L (-3-3) Oxyhemoglobin 96.1 % Methemoglobin 0.3 % (0.0-1.9) Carbon Monoxide, Quantitative 2.8 % (0.0-1.9) FiO2 100.0 Test 10/04/16 18:57 10/04/16 20:35 10/04/16 22:10 10/05/16 02:30 Glucose (Fingerstick) 89 mg/dL (70-99) Lactic Acid Level 6.4 mmol/L (0.4-2.0) Potassium Level 5.9 mmol/L (3.5-5.1) Free Thyroxine 1.15 ng/dL (0.76-1.46) Free Triiodothyronine (T3) pg/mL 0.95 pg/mL (2.18-3.98) Nasal Screen MRSA (PCR) Negative (Negative) Test 10/05/16 05:10 10/05/16 08:35 10/05/16 10:00 10/05/16 18:50 White Blood Count 10.9 x10^3/uL (4.0-11.0) Red Blood Count 4.53 x10^6/uL (4.30-5.70) Hemoglobin 13.0 g/dL (13.0-17.5) Hematocrit 38.3 % (39.0-53.0) Mean Corpuscular Volume 84 fL (79-100) Mean Corpuscular Hemoglobin 29 pg (25-35) Mean Corpuscular Hemoglobin Concent 34 g/dL (31-37) Red Cell Distribution Width 14.6 % (11.5-14.5) Platelet Count 234 x10^3/uL (140-400) Neutrophils (%) (Auto) 96 % (31-73) Lymphocytes (%) (Auto) 1 % (24-48) Monocytes (%) (Auto) 3 % (0-9) Eosinophils (%) (Auto) 0 % (0-3) Basophils (%) (Auto) 0 % (0-3) Neutrophils # (Auto) 10.4 x10^3uL (1.8-7.7) Lymphocytes # (Auto) 0.1 x10^3/uL (1.0-4.8) Monocytes # (Auto) 0.3 x10^3/uL (0.0-1.1) Eosinophils # (Auto) 0.0 x10^3/uL (0.0-0.7) Basophils # (Auto) 0.0 x10^3/uL (0.0-0.2) Segmented Neutrophils % 68 % (35-66) Band Neutrophils % 27 % (0-9) Lymphocytes % 1 % (24-48) Monocytes % 4 % (0-10) Platelet Estimate Adequate (ADEQUATE) Sodium Level 143 mmol/L (136-145) Potassium Level 5.2 mmol/L (3.5-5.1) 4.8 mmol/L (3.5-5.1) Chloride Level 110 mmol/L (98-107) Carbon Dioxide Level 14 mmol/L (21-32) Anion Gap 19 (6-14) Blood Urea Nitrogen 180 mg/dL (8-26) Creatinine 5.8 mg/dL (0.7-1.3) Estimated GFR (Cockcroft-Gault) 11.3 Glucose Level 76 mg/dL (70-99) Lactic Acid Level 1.9 mmol/L (0.4-2.0) Calcium Level 7.4 mg/dL (8.5-10.1) O2 Saturation 95 % (92-99) Arterial Blood pH 7.35 (7.35-7.45) Arterial Blood pCO2 at Patient Temp 21 mmHg (35-46) Arterial Blood pO2 at Patient Temp 85 mmHg (65-108) Arterial Blood HCO3 12 mmol/L (21-28) Arterial Blood Base Excess -12 mmol/L (-3-3) FiO2 21 Reticulocyte Count (auto) 0.7 % (0.5-2.5) Iron Level 21 ug/dL (65-175) Total Iron Binding Capacity 173 ug/dL (250-450) Iron Saturation 12 % (15-34) Ammonia 26 mcmol/L (11-34) Vitamin B12 Level > 2000 pg/mL (247-911) Serum Folate > 24.00 ng/ml (3.2-20.0) Glucose (Fingerstick) 80 mg/dL (70-99) Test 10/06/16 00:27 10/06/16 00:40 10/06/16 01:05 10/06/16 01:38 Glucose (Fingerstick) 15 mg/dL (70-99) 21 mg/dL (70-99) 131 mg/dL (70-99) Glucose Level 27 mg/dL (70-99) Test 10/06/16 05:00 10/06/16 07:21 10/06/16 07:49 10/06/16 10:13 Sodium Level 145 mmol/L (136-145) Potassium Level 4.8 mmol/L (3.5-5.1) Chloride Level 113 mmol/L (98-107) Carbon Dioxide Level 14 mmol/L (21-32) Anion Gap 18 (6-14) Blood Urea Nitrogen 154 mg/dL (8-26) Creatinine 5.6 mg/dL (0.7-1.3) Estimated GFR (Cockcroft-Gault) 11.7 Glucose Level 29 mg/dL (70-99) Calcium Level 7.9 mg/dL (8.5-10.1) Glucose (Fingerstick) 49 mg/dL (70-99) 114 mg/dL (70-99) 22 mg/dL (70-99) Laboratory Tests Test 10/05/16 18:50 10/06/16 00:27 10/06/16 00:40 10/06/16 01:05 Glucose (Fingerstick) 80 mg/dL (70-99) 15 mg/dL (70-99) 21 mg/dL (70-99) Glucose Level 27 mg/dL (70-99) Test 10/06/16 01:38 10/06/16 05:00 10/06/16 07:21 10/06/16 07:49 Glucose (Fingerstick) 131 mg/dL (70-99) 49 mg/dL (70-99) 114 mg/dL (70-99) Sodium Level 145 mmol/L (136-145) Potassium Level 4.8 mmol/L (3.5-5.1) Chloride Level 113 mmol/L (98-107) Carbon Dioxide Level 14 mmol/L (21-32) Anion Gap 18 (6-14) Blood Urea Nitrogen 154 mg/dL (8-26) Creatinine 5.6 mg/dL (0.7-1.3) Estimated GFR (Cockcroft-Gault) 11.7 Glucose Level 29 mg/dL (70-99) Calcium Level 7.9 mg/dL (8.5-10.1) Test 10/06/16 10:13 Glucose (Fingerstick) 22 mg/dL (70-99) Microbiology 10/04/16 Blood Culture - Preliminary, Resulted NO GROWTH AFTER 1 DAY 10/04/16 Urine Culture - Preliminary, Resulted 10/04/16 Urine Culture Result 1 (SHAUN) - Preliminary, Resulted 10/04/16 Urine Culture Result 2 (SHAUN) - Preliminary, Resulted Medications Current Medications Sodium Chloride 1,000 ml @ 1,000 mls/hr 1X ONCE IV Last administered on 16:55; Start 10/04/16 at 16:45; Stop 10/04/16 at 17:44; Status DC Norepinephrine Bitartrate 250 ml @ 0 mls/hr 1X ONCE IV Last administered on 16:55; Start 10/04/16 at 16:45; Stop 10/04/16 at 16:50; Status DC Piperacillin Sod/ Tazobactam Sod 3.375 gm/Sodium Chloride 50 ml @ 100 mls/hr 1X ONCE IV Last administered on 10/04/16 16:57; Start 10/04/16 at 16:45; Stop 10/04/16 at 17:14; Status DC Vancomycin HCl 250 ml @ 250 mls/hr 1X ONCE IV ; Start 10/04/16 at 17:30; Stop 10/04/16 at 18:29; Status Cancel Albuterol Sulfate (Ventolin Neb Soln) 2.5 mg 1X ONCE NEB Last administered on 10/04/16 17:08; Start 10/04/16 at 17:00; Stop 10/04/16 at 17:01; Status DC Calcium Gluconate (Calcium Gluconate) 1,000 mg 1X ONCE IV Last administered on 10/04/16 16:57; Start 10/04/16 at 17:00; Stop 10/04/16 at 17:01; Status DC Insulin Human Regular (NovoLIN R VIAL) 10 unit 1X ONCE IV Last administered on 10/04/16 16:59; Start 10/04/16 at 17:00; Stop 10/04/16 at 17:01; Status DC Sodium Chloride 1,000 ml @ 1,000 mls/hr 1X ONCE IV Last administered on 17:09; Start 10/04/16 at 17:15; Stop 10/04/16 at 18:14; Status DC Pantoprazole Sodium (Protonix Vial) 40 mg 1X ONCE IVP Last administered on 17:12; Start 10/04/16 at 17:15; Stop 10/04/16 at 17:16; Status DC Sodium Chloride 1,000 ml @ 1,000 mls/hr 1X ONCE IV Last administered on 17:30; Start 10/04/16 at 17:30; Stop 10/04/16 at 18:29; Status DC Sodium Bicarbonate 150 meq/Dextrose 1,150 ml @ 125 mls/hr 1X ONCE IV Last administered on 10/04/16 17:53; Start 10/04/16 at 17:45; Stop 10/05/16 at 02:56 ; Status DC Ondansetron HCl (Zofran) 4 mg PRN Q8HRS PRN IV NAUSEA/VOMITING; Start 10/04/16 at 17:30; Stop 10/04/16 at 18:45; Status DC Ondansetron HCl (Zofran) 4 mg PRN Q6HRS PRN IV NAUSEA/VOMITING; Start 10/04/16 at 18:41; Stop 10/05/16 at 18:40; Status DC Sodium Chloride 1,000 ml @ 50 mls/hr Q20H IV Last administered on 10/05/16 10 :59; Start 10/04/16 at 19:00 Heparin Sodium (Porcine) (Heparin Sq) 5,000 unit Q8HRS SQ ; Start 10/04/16 at 22 :00; Stop 10/04/16 at 22:00; Status DC Pantoprazole Sodium (Protonix Vial) 40 mg DAILYAC IVP Last administered on 10/06 07:13; Start 10/05/16 at 07:30 Acetaminophen (Tylenol) 500 mg PRN Q6HRS PRN PO MILD PAIN / TEMP; Start at 18:45 Piperacillin Sod/ Tazobactam Sod (Zosyn Per Pharmacy) 1 each PRN DAILY PRN MC SEE COMMENTS; Start 10/04/16 at 19:15 Piperacillin Sod/ Tazobactam Sod 2.25 gm/Sodium Chloride 50 ml @ 100 mls/hr Q8HRS IV Last administered on 10/06/16 07:08; Start 10/04/16 at 22:00 Vancomycin HCl 1 gm/Sodium Chloride 250 ml @ 250 mls/hr 1X ONCE IV Last administered on 10/04/16 22:35; Start 10/04/16 at 21:30; Stop 10/04/16 at 22:29 ; Status DC Norepinephrine Bitartrate 250 ml @ 0 mls/hr CONT PRN IV SEE I/O RECORD Last administered on 10/05/16 09:28; Start 10/04/16 at 22:30 Lactulose 20 gm BID PO ; Start 10/05/16 at 10:00; Stop 10/05/16 at 10:34; Status DC Amino Acids/ Glycerin/ Electrolytes 1,000 ml @ 80 mls/hr [id number] IV Last administered on 10/06/16 00:36; Start 10/05/16 at 12:00 Morphine Sulfate 4 mg PRN Q1HR PRN IV PAIN Last administered on 10/06/16 08:15 ; Start 10/05/16 at 18:45 Dextrose (Dextrose 50%-Water Syringe) 12.5 gm PRN Q15MIN PRN IV SEE COMMENTS Last administered on 10/06/16 10:30; Start 10/05/16 at 18:45 Dextrose 1,000 ml @ 125 mls/hr Q8H IV Last administered on 10/06/16 06:49; Start 10/05/16 at 18:45 Lorazepam (Ativan) 1 mg PRN Q2HR PRN PO ANXIETY / AGITATION; Start 10/05/16 at 18:45 Scopolamine (Transderm-Scop) 1 patch Q3DAYS TD ; Start 10/05/16 at 19:00; Stop 10/05/16 at 19:11; Status DC Scopolamine (Transderm-Scop) 1 patch PRN Q72HRS PRN TD SECRETIONS, COMFORT; Start 10/05/16 at 19:15 Methylprednisolone Sodium Succinate (SOLU-Medrol 40MG VIAL) 40 mg 1X ONCE IV Last administered on 10/06/16 07:16; Start 10/06/16 at 07:15; Stop 10/06/16 at 07:16; Status DC Active Scripts Active Reported Cetirizine Hcl 10 Mg Tablet 10 Mg PO DAILY Levocetirizine Dihydrochloride 5 Mg Tablet 5 Mg PO DAILY Omeprazole 20 Mg Capsule.dr 20 Mg PO DAILY Lisinopril 20 Mg Tablet 20 Mg PO DAILY Glipizide Er (Glipizide) 2.5 Mg Tab.er.24 2.5 Mg PO DAILY Benztropine Mesylate 0.5 Mg Tablet 0.5 Mg PO BID Haloperidol 2 Mg Tablet 1 Mg PO DAILY Indapamide 2.5 Mg Tablet 5 Mg PO DAILY Amlodipine Besylate 10 Mg Tablet 1 Tab PO DAILY Vitals/I & O Vital Sign - Last 24 Hours 10/05/16 10/05/16 10/05/16 10/05/16 11:00 12:00 12:00 12:15 Temp 97.2 97.0 97.2 97.0 Pulse 96 87 82 Resp 16 19 16 B/P (MAP) 113/71 (85) 107/70 (82) 114/57 (76) Pulse Ox 100 100 100 O2 Delivery Room Air Room Air Room Air Room Air 10/05/16 10/05/16 10/05/16 10/05/16 13:00 13:15 13:30 13:45 Pulse 93 93 90 84 Resp 24 18 22 17 B/P (MAP) 133/66 (88) 121/63 (82) 111/65 (80) 115/61 (79) Pulse Ox 100 100 100 100 O2 Delivery Room Air Room Air Room Air Room Air 10/05/16 10/05/16 10/05/16 10/05/16 14:00 14:15 14:45 15:00 Pulse 80 88 88 93 Resp 13 24 23 24 B/P (MAP) 125/67 (86) 97/67 (77) 101/54 (70) 104/54 (71) Pulse Ox 100 100 100 100 O2 Delivery Room Air Room Air Room Air Room Air 10/05/16 10/05/16 10/05/16 10/05/16 16:00 16:00 17:00 18:00 Temp 97.4 97.4 Pulse 87 85 74 Resp 21 23 21 B/P (MAP) 104/67 (79) 106/58 (74) 112/57 (75) Pulse Ox 100 100 100 O2 Delivery Room Air Room Air Room Air Room Air 10/05/16 10/05/16 10/05/16 10/05/16 18:57 19:00 20:00 20:00 Temp 97.2 97.2 Pulse 90 82 Resp 26 16 B/P (MAP) 140/76 (97) 88/59 (69) Pulse Ox 97 96 O2 Delivery Room Air Room Air Room Air Room Air 10/05/16 10/05/16 10/05/16 10/06/16 21:00 22:00 23:00 00:00 Temp 97.5 97.5 Pulse 80 80 78 70 Resp 20 17 21 16 B/P (MAP) 116/73 (87) 105/61 (76) 95/56 (69) 106/59 (75) Pulse Ox 99 100 100 100 O2 Delivery Room Air Room Air Room Air Room Air 10/06/16 10/06/16 10/06/16 10/06/16 00:00 01:00 02:04 03:04 Pulse 74 79 78 Resp 24 18 22 B/P (MAP) 115/81 (92) 122/65 (84) 114/52 (72) Pulse Ox 98 100 100 O2 Delivery Room Air Room Air Room Air Room Air 10/06/16 10/06/16 10/06/16 10/06/16 04:00 04:00 05:00 06:00 Temp 97.1 97.1 Pulse 82 80 82 Resp 20 22 20 B/P (MAP) 120/65 (83) 121/85 (97) 117/69 (85) Pulse Ox 100 99 100 O2 Delivery Room Air Room Air Room Air Room Air 10/06/16 10/06/16 10/06/16 10/06/16 07:00 08:00 08:00 08:15 Temp 97.4 97.4 Pulse 86 65 Resp 21 19 B/P (MAP) 119/60 (79) 129/65 (86) Pulse Ox 95 100 O2 Delivery Room Air Room Air Room Air Room Air 10/06/16 10/06/16 10/06/16 08:45 09:00 10:00 Pulse 82 82 Resp 26 20 B/P (MAP) 137/69 (91) 140/67 (91) Pulse Ox 100 97 O2 Delivery Room Air Room Air Room Air Intake and Output 10/05/16 10/05/16 10/06/16 15:00 23:00 07:00 Intake Total 50 ml 1582.49 ml 2042 ml Output Total 1150 ml 1265 ml 1355 ml Balance -1100 ml 317.49 ml 687 ml Nutrition Consultation Dietary Evaluation: Recommendations by RD: Increase Calorie Intake Comments: Rec. honor family care plan goals as appropriate Expected Outcomes/Goals: meet 75% estimated nutrition needs Malnutrition Findings: Food and Nutrition Intake (Mod: <75% est energy req 7days Body Fat Depletion (Non Severe: Mod to Severe Reduced Building Maintenance Worker Strength: N/A Reduced Building Maintenance Worker Strength (Non-Sev: N/A Weight Status: Underweight HOMER ESPOSITO MD Oct 06, 2016 10:39
[2016-10-06] MEDS ORDERED: LORazepam INTENSOL 2 MG/ML ORAL.CONC SL PRN (11:00)
--- NOTE | 2016-10-06 11:18 | PDOC ---
PULMONARY PROGRESS NOTES Subjective confused Vitals Vital Signs Date Time Temp Pulse Resp B/P (MAP) Pulse Ox O2 Delivery O2 Flow Rate FiO2 10/06/16 10:00 82 20 140/67 (91) 97 Room Air 10/06/16 08:00 97.4 97.4 General: No acute distress Lungs: Clear Cardiovascular: S1, S2 Abdomen: Soft Extremities: No Edema Skin: Warm Labs Laboratory Tests Test 10/04/16 16:36 10/04/16 16:38 10/04/16 16:41 10/04/16 16:45 White Blood Count 5.4 x10^3/uL (4.0-11.0) Red Blood Count 2.64 x10^6/uL (4.30-5.70) Hemoglobin 7.3 g/dL (13.0-17.5) Hematocrit 23.2 % (39.0-53.0) Mean Corpuscular Volume 88 fL (79-100) Mean Corpuscular Hemoglobin 27 pg (25-35) Mean Corpuscular Hemoglobin Concent 31 g/dL (31-37) Red Cell Distribution Width 14.5 % (11.5-14.5) Platelet Count 244 x10^3/uL (140-400) Neutrophils (%) (Auto) 90 % (31-73) Lymphocytes (%) (Auto) 8 % (24-48) Monocytes (%) (Auto) 2 % (0-9) Eosinophils (%) (Auto) 0 % (0-3) Basophils (%) (Auto) 0 % (0-3) Neutrophils # (Auto) 4.9 x10^3uL (1.8-7.7) Lymphocytes # (Auto) 0.4 x10^3/uL (1.0-4.8) Monocytes # (Auto) 0.1 x10^3/uL (0.0-1.1) Eosinophils # (Auto) 0.0 x10^3/uL (0.0-0.7) Basophils # (Auto) 0.0 x10^3/uL (0.0-0.2) Segmented Neutrophils % 75 % (35-66) Band Neutrophils % 15 % (0-9) Lymphocytes % 7 % (24-48) Monocytes % 2 % (0-10) Metamyelocytes % 1 % (0-0) Nucleated Red Blood Cells 2 Toxic Granulation Mod Toxic Vacuolation Slight Platelet Estimate Adequate (ADEQUATE) Schistocytes Occ Prothrombin Time 18.7 SEC (11.7-14.0) Prothromb Time International Ratio 1.7 (0.8-1.1) Activated Partial Thromboplast Time 52 SEC (24-38) Sodium Level 133 mmol/L (136-145) Potassium Level 7.4 mmol/L (3.5-5.1) Chloride Level 100 mmol/L (98-107) Carbon Dioxide Level 10 mmol/L (21-32) Anion Gap 23 (6-14) Blood Urea Nitrogen 208 mg/dL (8-26) Creatinine 7.6 mg/dL (0.7-1.3) Estimated GFR (Cockcroft-Gault) 8.3 BUN/Creatinine Ratio 27 (6-20) Glucose Level 443 mg/dL (70-99) Lactic Acid Level 6.2 mmol/L (0.4-2.0) Calcium Level 8.1 mg/dL (8.5-10.1) Magnesium Level 3.1 mg/dL (1.8-2.4) Total Bilirubin 0.4 mg/dL (0.2-1.0) Aspartate Amino Transf (AST/SGOT) 481 U/L (15-37) Alanine Aminotransferase (ALT/SGPT) 284 U/L (16-63) Alkaline Phosphatase 95 U/L (46-116) Ammonia 193 mcmol/L (11-34) Creatine Kinase 132 U/L (39-308) Troponin I Quantitative < 0.017 ng/mL (0.000-0.055) PK-Dgb-S-Type Natriuretic Peptide 508 pg/mL (0-449) Total Protein 5.4 g/dL (6.4-8.2) Albumin 1.8 g/dL (3.4-5.0) Albumin/Globulin Ratio 0.5 (1.0-1.7) Lipase 190 U/L (73-393) Thyroid Stimulating Hormone (TSH) 5.685 uIU/mL (0.358-3.74) Salicylates Level < 2.8 mg/dL (2.8-20.0) Salicylate Last Dose Date Salicylate Last Dose Time Acetaminophen Level 4.97 mcg/ml (10-30) Acetaminophen Last Dose Date Acetaminophen Last Dose Time Ethyl Alcohol Level < 10 mg/dL (0-10) Glucose (Fingerstick) 412 mg/dL (70-99) Bedside Troponin I 0.01 ng/ml (<0.08) Stool Occult Blood Positive (NEG) Test 10/04/16 17:11 10/04/16 17:17 10/04/16 17:30 10/04/16 17:42 Urine Collection Type U cath Urine Color Brown Urine Clarity Turbid Urine pH 8.0 Urine Specific [place] 1.020 Urine Protein >=300 mg/dL (NEG-TRACE) Urine Glucose (UA) Negative mg/dL (NEG) Urine Ketones (Stick) Trace mg/dL (NEG) Urine Blood Large (NEG) Urine Nitrite Positive (NEG) Urine Bilirubin Negative (NEG) Urine Urobilinogen Dipstick 0.2 mg/dL (0.2 mg/dL) Urine Leukocyte Esterase Large (NEG) Urine RBC Tntc /HPF (0-2) Urine WBC Tntc /HPF (0-4) Urine Squamous Epithelial Cells Occ /LPF Urine Bacteria Many /HPF (0-FEW) Urine Mucus Marked /LPF Urine Opiates Screen Neg (NEG) Urine Methadone Screen Neg (NEG) Urine Barbiturates Neg (NEG) Urine Phencyclidine Screen Neg (NEG) Urine Amphetamine/Methamphetamine Neg (NEG) Urine Benzodiazepines Screen Neg (NEG) Urine Cocaine Screen Neg (NEG) Urine Cannabinoids Screen Neg (NEG) Urine Ethyl Alcohol Neg (NEG) Glucose (Fingerstick) 195 mg/dL (70-99) 91 mg/dL (70-99) O2 Saturation 99 % (92-99) Arterial Blood pH 7.00 (7.35-7.45) Arterial Blood pH (Temp corrected) 7.05 Arterial Blood pCO2 at Patient Temp 24 mmHg (35-46) Arterial Blood pCO2 (Temp correct) 20 mmHg Arterial Blood pO2 at Patient Temp 342 mmHg (65-108) Arterial Blood pO2 (Temp corrected) 321 mmHg Arterial Blood HCO3 6 mmol/L (21-28) Arterial Blood Base Excess -23 mmol/L (-3-3) Oxyhemoglobin 96.1 % Methemoglobin 0.3 % (0.0-1.9) Carbon Monoxide, Quantitative 2.8 % (0.0-1.9) FiO2 100.0 Test 10/04/16 18:57 10/04/16 20:35 10/04/16 22:10 10/05/16 02:30 Glucose (Fingerstick) 89 mg/dL (70-99) Lactic Acid Level 6.4 mmol/L (0.4-2.0) Potassium Level 5.9 mmol/L (3.5-5.1) Free Thyroxine 1.15 ng/dL (0.76-1.46) Free Triiodothyronine (T3) pg/mL 0.95 pg/mL (2.18-3.98) Nasal Screen MRSA (PCR) Negative (Negative) Test 10/05/16 05:10 10/05/16 08:35 10/05/16 10:00 10/05/16 18:50 White Blood Count 10.9 x10^3/uL (4.0-11.0) Red Blood Count 4.53 x10^6/uL (4.30-5.70) Hemoglobin 13.0 g/dL (13.0-17.5) Hematocrit 38.3 % (39.0-53.0) Mean Corpuscular Volume 84 fL (79-100) Mean Corpuscular Hemoglobin 29 pg (25-35) Mean Corpuscular Hemoglobin Concent 34 g/dL (31-37) Red Cell Distribution Width 14.6 % (11.5-14.5) Platelet Count 234 x10^3/uL (140-400) Neutrophils (%) (Auto) 96 % (31-73) Lymphocytes (%) (Auto) 1 % (24-48) Monocytes (%) (Auto) 3 % (0-9) Eosinophils (%) (Auto) 0 % (0-3) Basophils (%) (Auto) 0 % (0-3) Neutrophils # (Auto) 10.4 x10^3uL (1.8-7.7) Lymphocytes # (Auto) 0.1 x10^3/uL (1.0-4.8) Monocytes # (Auto) 0.3 x10^3/uL (0.0-1.1) Eosinophils # (Auto) 0.0 x10^3/uL (0.0-0.7) Basophils # (Auto) 0.0 x10^3/uL (0.0-0.2) Segmented Neutrophils % 68 % (35-66) Band Neutrophils % 27 % (0-9) Lymphocytes % 1 % (24-48) Monocytes % 4 % (0-10) Platelet Estimate Adequate (ADEQUATE) Sodium Level 143 mmol/L (136-145) Potassium Level 5.2 mmol/L (3.5-5.1) 4.8 mmol/L (3.5-5.1) Chloride Level 110 mmol/L (98-107) Carbon Dioxide Level 14 mmol/L (21-32) Anion Gap 19 (6-14) Blood Urea Nitrogen 180 mg/dL (8-26) Creatinine 5.8 mg/dL (0.7-1.3) Estimated GFR (Cockcroft-Gault) 11.3 Glucose Level 76 mg/dL (70-99) Lactic Acid Level 1.9 mmol/L (0.4-2.0) Calcium Level 7.4 mg/dL (8.5-10.1) O2 Saturation 95 % (92-99) Arterial Blood pH 7.35 (7.35-7.45) Arterial Blood pCO2 at Patient Temp 21 mmHg (35-46) Arterial Blood pO2 at Patient Temp 85 mmHg (65-108) Arterial Blood HCO3 12 mmol/L (21-28) Arterial Blood Base Excess -12 mmol/L (-3-3) FiO2 21 Reticulocyte Count (auto) 0.7 % (0.5-2.5) Iron Level 21 ug/dL (65-175) Total Iron Binding Capacity 173 ug/dL (250-450) Iron Saturation 12 % (15-34) Ammonia 26 mcmol/L (11-34) Vitamin B12 Level > 2000 pg/mL (247-911) Serum Folate > 24.00 ng/ml (3.2-20.0) Glucose (Fingerstick) 80 mg/dL (70-99) Test 10/06/16 00:27 10/06/16 00:40 10/06/16 01:05 10/06/16 01:38 Glucose (Fingerstick) 15 mg/dL (70-99) 21 mg/dL (70-99) 131 mg/dL (70-99) Glucose Level 27 mg/dL (70-99) Test 10/06/16 05:00 10/06/16 07:21 10/06/16 07:49 10/06/16 10:13 Sodium Level 145 mmol/L (136-145) Potassium Level 4.8 mmol/L (3.5-5.1) Chloride Level 113 mmol/L (98-107) Carbon Dioxide Level 14 mmol/L (21-32) Anion Gap 18 (6-14) Blood Urea Nitrogen 154 mg/dL (8-26) Creatinine 5.6 mg/dL (0.7-1.3) Estimated GFR (Cockcroft-Gault) 11.7 Glucose Level 29 mg/dL (70-99) Calcium Level 7.9 mg/dL (8.5-10.1) Glucose (Fingerstick) 49 mg/dL (70-99) 114 mg/dL (70-99) 22 mg/dL (70-99) Laboratory Tests Test 10/05/16 18:50 10/06/16 00:27 10/06/16 00:40 10/06/16 01:05 Glucose (Fingerstick) 80 mg/dL (70-99) 15 mg/dL (70-99) 21 mg/dL (70-99) Glucose Level 27 mg/dL (70-99) Test 10/06/16 01:38 10/06/16 05:00 10/06/16 07:21 10/06/16 07:49 Glucose (Fingerstick) 131 mg/dL (70-99) 49 mg/dL (70-99) 114 mg/dL (70-99) Sodium Level 145 mmol/L (136-145) Potassium Level 4.8 mmol/L (3.5-5.1) Chloride Level 113 mmol/L (98-107) Carbon Dioxide Level 14 mmol/L (21-32) Anion Gap 18 (6-14) Blood Urea Nitrogen 154 mg/dL (8-26) Creatinine 5.6 mg/dL (0.7-1.3) Estimated GFR (Cockcroft-Gault) 11.7 Glucose Level 29 mg/dL (70-99) Calcium Level 7.9 mg/dL (8.5-10.1) Test 10/06/16 10:13 Glucose (Fingerstick) 22 mg/dL (70-99) Medications Active Scripts Medications Dose Route/Sig Max Daily Dose Days Date Category Cetirizine Hcl 10 Mg Tablet 10 Mg PO DAILY 10/05/16 Reported Levocetirizine Dihydrochloride 5 Mg Tablet 5 Mg PO DAILY 10/05/16 Reported Omeprazole 20 Mg Capsule.dr 20 Mg PO DAILY 10/05/16 Reported Lisinopril 20 Mg Tablet 20 Mg PO DAILY 10/05/16 Reported Glipizide Er (Glipizide) 2.5 Mg Tab.er.24 2.5 Mg PO DAILY 10/05/16 Reported Benztropine Mesylate 0.5 Mg Tablet 0.5 Mg PO BID 10/05/16 Reported Haloperidol 2 Mg Tablet 1 Mg PO DAILY 10/05/16 Reported Indapamide 2.5 Mg Tablet 5 Mg PO DAILY 09/24/14 Reported Amlodipine Besylate 10 Mg Tablet 1 Tab PO DAILY 09/24/14 Reported Impression . 1. Acute respiratory failure secondary to septic shock. 2. Severe metabolic acidosis with lactic acidosis. This is secondary to a combination of septic shock and acute on chronic renal failure. 3. No definite pneumonia seen on the chest x-ray. 4. Encephalopathy related to septic shock, clinically improving. 5. Acute on chronic renal failure. 6. Anemia. Improved on current labs. Plan . 1. From a pulmonary standpoint, he is stable, continue nasal cannula. 2. Metabolic acidosis has improved. 3. Follow renal recommendation. no HD 4. Continue broad-spectrum antibiotics. 5. d/w palliative care .DNR/DNI. Home with hospice/ comfort care SOWMYA SHEPARD MD Oct 06, 2016 11:18
--- NOTE | 2016-10-06 11:50 | PDOC ---
Renal-Progress Notes Subjective Notes Notes NONE History of Present Illness Hx of present illness NO CHANGE Vitals Vitals Vital Signs Date Time Temp Pulse Resp B/P (MAP) Pulse Ox O2 Delivery O2 Flow Rate FiO2 10/06/16 10:00 82 20 140/67 (91) 97 Room Air 10/06/16 08:00 97.4 97.4 Weight Weight [ ] I.O. Intake and Output Intake and Output 10/06/16 07:00 Intake Total 3674.49 ml Output Total 3770 ml Balance -95.51 ml Intake Oral 0 ml IV Total 3674.49 ml Output Urine Total 3770 ml # Bowel Movements 5 Labs Labs Laboratory Tests Test 10/05/16 18:50 10/06/16 00:27 10/06/16 00:40 10/06/16 01:05 Glucose (Fingerstick) 80 mg/dL (70-99) 15 mg/dL (70-99) 21 mg/dL (70-99) Glucose Level 27 mg/dL (70-99) Test 10/06/16 01:38 10/06/16 05:00 10/06/16 07:21 10/06/16 07:49 Glucose (Fingerstick) 131 mg/dL (70-99) 49 mg/dL (70-99) 114 mg/dL (70-99) Sodium Level 145 mmol/L (136-145) Potassium Level 4.8 mmol/L (3.5-5.1) Chloride Level 113 mmol/L (98-107) Carbon Dioxide Level 14 mmol/L (21-32) Anion Gap 18 (6-14) Blood Urea Nitrogen 154 mg/dL (8-26) Creatinine 5.6 mg/dL (0.7-1.3) Estimated GFR (Cockcroft-Gault) 11.7 Glucose Level 29 mg/dL (70-99) Calcium Level 7.9 mg/dL (8.5-10.1) Test 10/06/16 10:13 Glucose (Fingerstick) 22 mg/dL (70-99) Micro Micro Microbiology 10/04/16 Blood Culture - Preliminary, Resulted NO GROWTH AFTER 1 DAY 10/04/16 Urine Culture - Preliminary, Resulted 10/04/16 Urine Culture Result 1 (SHAUN) - Preliminary, Resulted 10/04/16 Urine Culture Result 2 (SHAUN) - Preliminary, Resulted Review of Systems Constitutional: yes: no symptom reported Physical Exam General Appearance: no apparent distress Musculoskeletal: Muscle atrophy Assessment Assessment IMP UREMIA 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
--- NOTE | 2016-10-06 12:16 | PDOC2 ---
PALLIATIVE CARE Palliative Care Note Palliative Care Met with Eric/brother. Reviewed medical condition; Renal failure, unable to swallow ; liver failure; uremia Spoke with daughter--[facility] selected. They are meeting with family today at 3pm. DME: Bed Will discontinue all meds, labs, FS; x-rays that are not adding to patient comfort. Plan home with hospice when arrangements complete. Spoke with Eileen ARNETT who is assisting with discharge plans. Outside the Hospital DNR/DNI completed. LOUIE Espana RN Oct 06, 2016 12:16
--- NOTE | 2016-10-06 14:54 | PDOC ---
Objective: Objective: D/w RN. Vital Signs: Vital Signs Date Time Temp Pulse Resp B/P (MAP) Pulse Ox O2 Delivery O2 Flow Rate FiO2 10/06/16 10:00 82 20 140/67 (91) 97 Room Air 10/06/16 08:00 97.4 97.4 Labs: Laboratory Tests Test 10/05/16 18:50 10/06/16 00:27 10/06/16 00:40 10/06/16 01:05 Glucose (Fingerstick) 80 mg/dL 15 mg/dL 21 mg/dL Glucose Level 27 mg/dL Test 10/06/16 01:38 10/06/16 05:00 10/06/16 07:21 10/06/16 07:49 Glucose (Fingerstick) 131 mg/dL 49 mg/dL 114 mg/dL Sodium Level 145 mmol/L Potassium Level 4.8 mmol/L Chloride Level 113 mmol/L Carbon Dioxide Level 14 mmol/L Anion Gap 18 Blood Urea Nitrogen 154 mg/dL Creatinine 5.6 mg/dL Estimated GFR (Cockcroft-Gault) 11.7 Glucose Level 29 mg/dL Calcium Level 7.9 mg/dL Test 10/06/16 10:13 Glucose (Fingerstick) 22 mg/dL PE: no exam A/P: Renal failure, AMS -- Plans for Hospice. MARCELLA LIMON Oct 06, 2016 14:53
--- NOTE | 2016-10-06 15:31 | PDOC2 ---
PALLIATIVE CARE Palliative Care Note Palliative Care Patient with periods of apnea. RR 10 HR 50's to 80. SR Met with Eric and his daughter. Audra RENAE from [facility]. Audra RENAE concerned that patient may not survive transport home. Will transfer to Medical Floor with comfort care. Family in agreement. LOUIE ELIZONDO Oct 06, 2016 15:31
--- NOTE | 2016-10-07 10:23 | PDOC ---
PROGRESS NOTES Chief Complaint Chief Complaint 1. admitted w/ shock needing pressors 2. Acute metabolic acidosis, WILLIAM severe 3. Hyperkalemia with EKG changes 4. Metabolic encephalopathy 5. BRBPR 6, UTI 7. Severe malnourishment/cachexia 8. hypothyroid, hypoglycemia History of Present Illness History of Present Illness out of ICU ok to transition home on hospice if family is willing unsure of timeline for this plan cont comfort care DNR/DNI IV Morphine and IV ativan prn for comfort. and agitation Vitals Vitals Vital Signs Date Time Temp Pulse Resp B/P (MAP) Pulse Ox O2 Delivery O2 Flow Rate FiO2 10/07/16 07:30 Room Air 10/07/16 03:00 12 10/06/16 19:59 97.6 74 143/74 (97) 92 97.6 Physical Exam General: Alert, No acute distress, Other (not alert, not responding to qusetions) Heart: Regular rate, Other (TACHY) Lungs: Clear Abdomen: Normal bowel sounds, Soft Extremities: No clubbing, No edema, Normal pulses, No tenderness/swelling Skin: No rashes Review of Systems Review of Systems no complaint awake, but not talkative Assessment and Plan Assessmemt and Plan Problems Medical Problems: (1) Anemia Status: Acute (2) Encephalopathy acute Status: Acute (3) GI bleed Status: Acute (4) Hyperkalemia Status: Acute (5) Renal failure Status: Acute (6) Septic shock Status: Acute Problems: Comment Review of Relevant I have reviewed the following items sushant (where applicable) has been applied. Labs Laboratory Tests Test 10/05/16 18:50 10/06/16 00:27 10/06/16 00:40 10/06/16 01:05 Glucose (Fingerstick) 80 mg/dL (70-99) 15 mg/dL (70-99) 21 mg/dL (70-99) Glucose Level 27 mg/dL (70-99) Test 10/06/16 01:38 10/06/16 05:00 10/06/16 07:21 10/06/16 07:49 Glucose (Fingerstick) 131 mg/dL (70-99) 49 mg/dL (70-99) 114 mg/dL (70-99) Sodium Level 145 mmol/L (136-145) Potassium Level 4.8 mmol/L (3.5-5.1) Chloride Level 113 mmol/L (98-107) Carbon Dioxide Level 14 mmol/L (21-32) Anion Gap 18 (6-14) Blood Urea Nitrogen 154 mg/dL (8-26) Creatinine 5.6 mg/dL (0.7-1.3) Estimated GFR (Cockcroft-Gault) 11.7 Glucose Level 29 mg/dL (70-99) Calcium Level 7.9 mg/dL (8.5-10.1) Test 10/06/16 10:13 Glucose (Fingerstick) 22 mg/dL (70-99) Microbiology 10/04/16 Blood Culture - Preliminary, Resulted NO GROWTH AFTER 2 DAYS 10/04/16 Urine Culture - Preliminary, Resulted 10/04/16 Urine Culture Result 1 (SHAUN) - Preliminary, Resulted 10/04/16 Urine Culture Result 2 (SHAUN) - Preliminary, Resulted 10/04/16 Antimicrobic Susceptibility - Preliminary, Resulted Medications Current Medications Sodium Chloride 1,000 ml @ 1,000 mls/hr 1X ONCE IV Last administered on 16:55; Start 10/04/16 at 16:45; Stop 10/04/16 at 17:44; Status DC Norepinephrine Bitartrate 250 ml @ 0 mls/hr 1X ONCE IV Last administered on 16:55; Start 10/04/16 at 16:45; Stop 10/04/16 at 16:50; Status DC Piperacillin Sod/ Tazobactam Sod 3.375 gm/Sodium Chloride 50 ml @ 100 mls/hr 1X ONCE IV Last administered on 10/04/16 16:57; Start 10/04/16 at 16:45; Stop 10/04/16 at 17:14; Status DC Vancomycin HCl 250 ml @ 250 mls/hr 1X ONCE IV ; Start 10/04/16 at 17:30; Stop 10/04/16 at 18:29; Status Cancel Albuterol Sulfate (Ventolin Neb Soln) 2.5 mg 1X ONCE NEB Last administered on 10/04/16 17:08; Start 10/04/16 at 17:00; Stop 10/04/16 at 17:01; Status DC Calcium Gluconate (Calcium Gluconate) 1,000 mg 1X ONCE IV Last administered on 10/04/16 16:57; Start 10/04/16 at 17:00; Stop 10/04/16 at 17:01; Status DC Insulin Human Regular (NovoLIN R VIAL) 10 unit 1X ONCE IV Last administered on 10/04/16 16:59; Start 10/04/16 at 17:00; Stop 10/04/16 at 17:01; Status DC Sodium Chloride 1,000 ml @ 1,000 mls/hr 1X ONCE IV Last administered on 17:09; Start 10/04/16 at 17:15; Stop 10/04/16 at 18:14; Status DC Pantoprazole Sodium (Protonix Vial) 40 mg 1X ONCE IVP Last administered on 17:12; Start 10/04/16 at 17:15; Stop 10/04/16 at 17:16; Status DC Sodium Chloride 1,000 ml @ 1,000 mls/hr 1X ONCE IV Last administered on 17:30; Start 10/04/16 at 17:30; Stop 10/04/16 at 18:29; Status DC Sodium Bicarbonate 150 meq/Dextrose 1,150 ml @ 125 mls/hr 1X ONCE IV Last administered on 10/04/16 17:53; Start 10/04/16 at 17:45; Stop 10/05/16 at 02:56 ; Status DC Ondansetron HCl (Zofran) 4 mg PRN Q8HRS PRN IV NAUSEA/VOMITING; Start 10/04/16 at 17:30; Stop 10/04/16 at 18:45; Status DC Ondansetron HCl (Zofran) 4 mg PRN Q6HRS PRN IV NAUSEA/VOMITING; Start 10/04/16 at 18:41; Stop 10/05/16 at 18:40; Status DC Sodium Chloride 1,000 ml @ 50 mls/hr Q20H IV Last administered on 10/05/16 10 :59; Start 10/04/16 at 19:00; Stop 10/06/16 at 10:54; Status DC Heparin Sodium (Porcine) (Heparin Sq) 5,000 unit Q8HRS SQ ; Start 10/04/16 at 22 :00; Stop 10/04/16 at 22:00; Status DC Pantoprazole Sodium (Protonix Vial) 40 mg DAILYAC IVP Last administered on 10/06 07:13; Start 10/05/16 at 07:30; Stop 10/06/16 at 10:54; Status DC Acetaminophen (Tylenol) 500 mg PRN Q6HRS PRN PO MILD PAIN / TEMP; Start at 18:45; Stop 10/06/16 at 10:54; Status DC Piperacillin Sod/ Tazobactam Sod (Zosyn Per Pharmacy) 1 each PRN DAILY PRN MC SEE COMMENTS; Start 10/04/16 at 19:15; Stop 10/06/16 at 10:54; Status DC Piperacillin Sod/ Tazobactam Sod 2.25 gm/Sodium Chloride 50 ml @ 100 mls/hr Q8HRS IV Last administered on 10/06/16 07:08; Start 10/04/16 at 22:00; Stop at 10:54; Status DC Vancomycin HCl 1 gm/Sodium Chloride 250 ml @ 250 mls/hr 1X ONCE IV Last administered on 10/04/16 22:35; Start 10/04/16 at 21:30; Stop 10/04/16 at 22:29 ; Status DC Norepinephrine Bitartrate 250 ml @ 0 mls/hr CONT PRN IV SEE I/O RECORD Last administered on 10/05/16 09:28; Start 10/04/16 at 22:30; Stop 10/06/16 at 10:54 ; Status DC Lactulose 20 gm BID PO ; Start 10/05/16 at 10:00; Stop 10/05/16 at 10:34; Status DC Amino Acids/ Glycerin/ Electrolytes 1,000 ml @ 80 mls/hr [id number] IV Last administered on 10/06/16 00:36; Start 10/05/16 at 12:00; Stop 10/06/16 at 10:54 ; Status DC Morphine Sulfate 4 mg PRN Q1HR PRN IV PAIN Last administered on 10/06/16 15:04 ; Start 10/05/16 at 18:45 Dextrose (Dextrose 50%-Water Syringe) 12.5 gm PRN Q15MIN PRN IV SEE COMMENTS Last administered on 10/06/16 10:30; Start 10/05/16 at 18:45; Stop 10/06/16 at 10:54; Status DC Dextrose 1,000 ml @ 125 mls/hr Q8H IV Last administered on 10/06/16 06:49; Start 10/05/16 at 18:45; Stop 10/06/16 at 10:54; Status DC Lorazepam (Ativan) 1 mg PRN Q2HR PRN PO ANXIETY / AGITATION; Start 10/05/16 at 18:45; Stop 10/06/16 at 10:54; Status DC Scopolamine (Transderm-Scop) 1 patch Q3DAYS TD ; Start 10/05/16 at 19:00; Stop 10/05/16 at 19:11; Status DC Scopolamine (Transderm-Scop) 1 patch PRN Q72HRS PRN TD SECRETIONS, COMFORT; Start 10/05/16 at 19:15 Methylprednisolone Sodium Succinate (SOLU-Medrol 40MG VIAL) 40 mg 1X ONCE IV Last administered on 10/06/16 07:16; Start 10/06/16 at 07:15; Stop 10/06/16 at 07:16; Status DC Lorazepam (Ativan Intensol) 1 mg PRN Q2HR PRN SL ANXIETY / AGITATION; Start at 11:00 Active Scripts Active Reported Cetirizine Hcl 10 Mg Tablet 10 Mg PO DAILY Levocetirizine Dihydrochloride 5 Mg Tablet 5 Mg PO DAILY Omeprazole 20 Mg Capsule.dr 20 Mg PO DAILY Lisinopril 20 Mg Tablet 20 Mg PO DAILY Glipizide Er (Glipizide) 2.5 Mg Tab.er.24 2.5 Mg PO DAILY Benztropine Mesylate 0.5 Mg Tablet 0.5 Mg PO BID Haloperidol 2 Mg Tablet 1 Mg PO DAILY Indapamide 2.5 Mg Tablet 5 Mg PO DAILY Amlodipine Besylate 10 Mg Tablet 1 Tab PO DAILY Vitals/I & O Vital Sign - Last 24 Hours 10/06/16 10/06/16 10/06/16 10/06/16 15:04 19:59 20:00 23:33 Temp 97.6 97.6 Pulse 74 Resp 10 12 8 B/P (MAP) 143/74 (97) Pulse Ox 92 O2 Delivery Room Air Room Air Room Air Room Air 10/07/16 10/07/16 03:00 07:30 Resp 12 O2 Delivery Room Air Room Air Intake and Output 10/06/16 10/06/16 10/07/16 15:00 23:00 07:00 Intake Total 0 ml Output Total 400 ml 400 ml 350 ml Balance -400 ml -400 ml -350 ml Nutrition Consultation Dietary Evaluation: Recommendations by RD: Increase Calorie Intake Comments: Rec. 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
[2016-10-07 19:58] VITALS: BP 132/66
[2016-10-08 07:00] VITALS: BP 136/73
[2016-10-08] MEDS ORDERED: METHYL SALICYLATE/MENTHOL TOPICAL OINTMENT 29GM TUBE. TP PRN (13:30)
--- NOTE | 2016-10-08 14:49 | PDOC ---
PROGRESS NOTES Chief Complaint Chief Complaint acute metabolic encephalopathy 1. admitted w/ shock needing pressors, improved 2. Acute metabolic acidosis, WILLIAM severe 3. Hyperkalemia with EKG changes 4. Metabolic encephalopathy, hypoglycemia, not checking any longer, 5. BRBPR 6, UTI 7. Severe malnourishment/cachexia 8. hypothyroid, hypoglycemia History of Present Illness History of Present Illness therapies removed, and he is improving markedly daily he is now talkative and interactive, has eaten some no therapeutic meds, cont current ok to transition home on hospice any time, palliative care and social work back tomorrow. DNR/DNI IV Morphine and IV ativan prn for comfort. Vitals Vitals Vital Signs Date Time Temp Pulse Resp B/P (MAP) Pulse Ox O2 Delivery O2 Flow Rate FiO2 10/08/16 07:30 Room Air 10/08/16 07:00 97.2 80 20 136/73 (94) 98 97.2 Physical Exam General: Alert, No acute distress, Other (not alert, not responding to qusetions) Heart: Regular rate, Other (TACHY) Lungs: Clear Abdomen: Normal bowel sounds, Soft Extremities: No clubbing, No edema, Normal pulses, No tenderness/swelling Skin: No rashes Review of Systems Review of Systems no pain, would like more fluid to drink Assessment and Plan Assessmemt and Plan Problems Medical Problems: (1) Anemia Status: Acute (2) Encephalopathy acute Status: Acute (3) GI bleed Status: Acute (4) Hyperkalemia Status: Acute (5) Renal failure Status: Acute (6) Septic shock Status: Acute Problems: Comment Review of Relevant I have reviewed the following items sushant (where applicable) has been applied. Labs Microbiology 10/04/16 Blood Culture - Final, Complete 10/04/16 Urine Culture - Final, Complete 10/04/16 Urine Culture Result 1 (SHAUN) - Final, Complete 10/04/16 Urine Culture Result 2 (SHAUN) - Final, Complete 10/04/16 Antimicrobic Susceptibility - Final, Complete Medications Current Medications Sodium Chloride 1,000 ml @ 1,000 mls/hr 1X ONCE IV Last administered on t 16:55; Start 10/04/16 at 16:45; Stop 10/04/16 at 17:44; Status DC Norepinephrine Bitartrate 250 ml @ 0 mls/hr 1X ONCE IV Last administered on 16:55; Start 10/04/16 at 16:45; Stop 10/04/16 at 16:50; Status DC Piperacillin Sod/ Tazobactam Sod 3.375 gm/Sodium Chloride 50 ml @ 100 mls/hr 1X ONCE IV Last administered on 10/04/16 16:57; Start 10/04/16 at 16:45; Stop 10/04/16 at 17:14; Status DC Vancomycin HCl 250 ml @ 250 mls/hr 1X ONCE IV ; Start 10/04/16 at 17:30; Stop 10/04/16 at 18:29; Status Cancel Albuterol Sulfate (Ventolin Neb Soln) 2.5 mg 1X ONCE NEB Last administered on 10/04/16 17:08; Start 10/04/16 at 17:00; Stop 10/04/16 at 17:01; Status DC Calcium Gluconate (Calcium Gluconate) 1,000 mg 1X ONCE IV Last administered on 10/04/16 16:57; Start 10/04/16 at 17:00; Stop 10/04/16 at 17:01; Status DC Insulin Human Regular (NovoLIN R VIAL) 10 unit 1X ONCE IV Last administered on 10/04/16 16:59; Start 10/04/16 at 17:00; Stop 10/04/16 at 17:01; Status DC Sodium Chloride 1,000 ml @ 1,000 mls/hr 1X ONCE IV Last administered on 17:09; Start 10/04/16 at 17:15; Stop 10/04/16 at 18:14; Status DC Pantoprazole Sodium (Protonix Vial) 40 mg 1X ONCE IVP Last administered on 17:12; Start 10/04/16 at 17:15; Stop 10/04/16 at 17:16; Status DC Sodium Chloride 1,000 ml @ 1,000 mls/hr 1X ONCE IV Last administered on 17:30; Start 10/04/16 at 17:30; Stop 10/04/16 at 18:29; Status DC Sodium Bicarbonate 150 meq/Dextrose 1,150 ml @ 125 mls/hr 1X ONCE IV Last administered on 10/04/16 17:53; Start 10/04/16 at 17:45; Stop 10/05/16 at 02:56 ; Status DC Ondansetron HCl (Zofran) 4 mg PRN Q8HRS PRN IV NAUSEA/VOMITING; Start 10/04/16 at 17:30; Stop 10/04/16 at 18:45; Status DC Ondansetron HCl (Zofran) 4 mg PRN Q6HRS PRN IV NAUSEA/VOMITING; Start 10/04/16 at 18:41; Stop 10/05/16 at 18:40; Status DC Sodium Chloride 1,000 ml @ 50 mls/hr Q20H IV Last administered on 10/05/16 10 :59; Start 10/04/16 at 19:00; Stop 10/06/16 at 10:54; Status DC Heparin Sodium (Porcine) (Heparin Sq) 5,000 unit Q8HRS SQ ; Start 10/04/16 at 22 :00; Stop 10/04/16 at 22:00; Status DC Pantoprazole Sodium (Protonix Vial) 40 mg DAILYAC IVP Last administered on 10/06 07:13; Start 10/05/16 at 07:30; Stop 10/06/16 at 10:54; Status DC Acetaminophen (Tylenol) 500 mg PRN Q6HRS PRN PO MILD PAIN / TEMP; Start at 18:45; Stop 10/06/16 at 10:54; Status DC Piperacillin Sod/ Tazobactam Sod (Zosyn Per Pharmacy) 1 each PRN DAILY PRN MC SEE COMMENTS; Start 10/04/16 at 19:15; Stop 10/06/16 at 10:54; Status DC Piperacillin Sod/ Tazobactam Sod 2.25 gm/Sodium Chloride 50 ml @ 100 mls/hr Q8HRS IV Last administered on 10/06/16 07:08; Start 10/04/16 at 22:00; Stop at 10:54; Status DC Vancomycin HCl 1 gm/Sodium Chloride 250 ml @ 250 mls/hr 1X ONCE IV Last administered on 10/04/16 22:35; Start 10/04/16 at 21:30; Stop 10/04/16 at 22:29 ; Status DC Norepinephrine Bitartrate 250 ml @ 0 mls/hr CONT PRN IV SEE I/O RECORD Last administered on 10/05/16 09:28; Start 10/04/16 at 22:30; Stop 10/06/16 at 10:54 ; Status DC Lactulose 20 gm BID PO ; Start 10/05/16 at 10:00; Stop 10/05/16 at 10:34; Status DC Amino Acids/ Glycerin/ Electrolytes 1,000 ml @ 80 mls/hr [id number] IV Last administered on 10/06/16 00:36; Start 10/05/16 at 12:00; Stop 10/06/16 at 10:54 ; Status DC Morphine Sulfate 4 mg PRN Q1HR PRN IV PAIN Last administered on 10/06/16 15:04 ; Start 10/05/16 at 18:45 Dextrose (Dextrose 50%-Water Syringe) 12.5 gm PRN Q15MIN PRN IV SEE COMMENTS Last administered on 10/06/16 10:30; Start 10/05/16 at 18:45; Stop 10/06/16 at 10:54; Status DC Dextrose 1,000 ml @ 125 mls/hr Q8H IV Last administered on 10/06/16 06:49; Start 10/05/16 at 18:45; Stop 10/06/16 at 10:54; Status DC Lorazepam (Ativan) 1 mg PRN Q2HR PRN PO ANXIETY / AGITATION; Start 10/05/16 at 18:45; Stop 10/06/16 at 10:54; Status DC Scopolamine (Transderm-Scop) 1 patch Q3DAYS TD ; Start 10/05/16 at 19:00; Stop 10/05/16 at 19:11; Status DC Scopolamine (Transderm-Scop) 1 patch PRN Q72HRS PRN TD SECRETIONS, COMFORT; Start 10/05/16 at 19:15 Methylprednisolone Sodium Succinate (SOLU-Medrol 40MG VIAL) 40 mg 1X ONCE IV Last administered on 10/06/16 07:16; Start 10/06/16 at 07:15; Stop 10/06/16 at 07:16; Status DC Lorazepam (Ativan Intensol) 1 mg PRN Q2HR PRN SL ANXIETY / AGITATION; Start at 11:00 Multi-Ingredient Ointment (Analgesic [place]) 1 socorro PRN QID PRN TP MUSCLE PAIN Last administered on 10/08/16t 14:18; Start 10/08/16 at 13:30 Active Scripts Active Reported Cetirizine Hcl 10 Mg Tablet 10 Mg PO DAILY Levocetirizine Dihydrochloride 5 Mg Tablet 5 Mg PO DAILY Omeprazole 20 Mg Capsule.dr 20 Mg PO DAILY Lisinopril 20 Mg Tablet 20 Mg PO DAILY Glipizide Er (Glipizide) 2.5 Mg Tab.er.24 2.5 Mg PO DAILY Benztropine Mesylate 0.5 Mg Tablet 0.5 Mg PO BID Haloperidol 2 Mg Tablet 1 Mg PO DAILY Indapamide 2.5 Mg Tablet 5 Mg PO DAILY Amlodipine Besylate 10 Mg Tablet 1 Tab PO DAILY Vitals/I & O Vital Sign - Last 24 Hours 10/07/16 10/07/16 10/07/16 10/08/16 19:58 20:00 23:33 03:17 Temp 97.4 97.4 Pulse 74 Resp 14 12 B/P (MAP) 132/66 (88) Pulse Ox 93 O2 Delivery Room Air Room Air Room Air 10/08/16 10/08/16 07:00 07:30 Temp 97.2 97.2 Pulse 80 Resp 20 B/P (MAP) 136/73 (94) Pulse Ox 98 O2 Delivery Room Air Room Air Intake and Output 10/07/16 10/07/16 10/08/16 15:00 23:00 07:00 Intake Total 50 ml Output Total 325 ml 500 ml Balance -275 ml -500 ml Nutrition Consultation Dietary Evaluation: Recommendations by RD: Increase Calorie Intake Comments: Rec. honor family care plan goals as appropriate Expected Outcomes/Goals: meet 75% estimated nutrition needs Malnutrition Findings: Food and Nutrition Intake (Mod: <75% est energy req 7days Body Fat Depletion (Non Severe: Mod to Severe Reduced Power Engineer Strength: N/A Reduced Power Engineer Strength (Non-Sev: N/A Weight Status: Underweight PORSHA PENNY MD Oct 08, 2016 14:49
[2016-10-08 19:00] VITALS: BP 136/76
[2016-10-09 07:00] VITALS: BP 86/50
[2016-10-09 10:00] VITALS: BP 116/74
[2016-10-09 10:44] VITALS: BP 116/74
--- NOTE | 2016-10-09 11:59 | PDOC2 ---
PALLIATIVE CARE Palliative Care Note Palliative Care Patient alert. VSS. Visiting with brother--Eric. Spoke with Eric. His daughter is speaking with another Hospice Agency. She will inform us of agency chosen. Patient stable for transfer home with hospice when discharged. LOUIE ELIZONDO Oct 09, 2016 11:59
[2016-10-09 14:33] VITALS: BP 102/52
--- NOTE | 2016-10-09 15:12 | PDOC ---
PULMONARY PROGRESS NOTES Subjective confused Vitals Vital Signs Date Time Temp Pulse Resp B/P (MAP) Pulse Ox O2 Delivery O2 Flow Rate FiO2 10/09/16 14:33 97.9 79 19 102/52 (69) 94 Room Air 97.9 General: No acute distress Lungs: Clear Cardiovascular: S1, S2 Abdomen: Soft Extremities: No Edema Skin: Warm Medications Active Scripts Medications Dose Route/Sig Max Daily Dose Days Date Category Cetirizine Hcl 10 Mg Tablet 10 Mg PO DAILY 10/05/16 Reported Levocetirizine Dihydrochloride 5 Mg Tablet 5 Mg PO DAILY 10/05/16 Reported Omeprazole 20 Mg Capsule.dr 20 Mg PO DAILY 10/05/16 Reported Lisinopril 20 Mg Tablet 20 Mg PO DAILY 10/05/16 Reported Glipizide Er (Glipizide) 2.5 Mg Tab.er.24 2.5 Mg PO DAILY 10/05/16 Reported Benztropine Mesylate 0.5 Mg Tablet 0.5 Mg PO BID 10/05/16 Reported Haloperidol 2 Mg Tablet 1 Mg PO DAILY 10/05/16 Reported Indapamide 2.5 Mg Tablet 5 Mg PO DAILY 09/24/14 Reported Amlodipine Besylate 10 Mg Tablet 1 Tab PO DAILY 09/24/14 Reported Impression . 1. Acute respiratory failure secondary to septic shock. 2. Severe metabolic acidosis with lactic acidosis. This is secondary to a combination of septic shock and acute on chronic renal failure. 3. No definite pneumonia seen on the chest x-ray. 4. Encephalopathy related to septic shock, clinically improving. 5. Acute on chronic renal failure. 6. Anemia. Improved on current labs. Plan . 1. From a pulmonary standpoint, he is stable, continue nasal cannula. 2. Metabolic acidosis has improved. 3. Follow renal recommendation. no HD 4. Continue broad-spectrum antibiotics. 5. d/w palliative care .DNR/DNI. Home with hospice/ comfort care ABBY GRADY MD Oct 09, 2016 15:12
[2016-10-09 19:00] VITALS: BP 122/80
[2016-10-09 23:00] VITALS: BP 109/54
--- NOTE | 2016-10-09 23:25 | PDOC ---
PROGRESS NOTES Chief Complaint Chief Complaint acute metabolic encephalopathy 1. admitted w/ shock needing pressors, improved 2. Acute metabolic acidosis, WILLIAM severe 3. Hyperkalemia with EKG changes 4. Metabolic encephalopathy, hypoglycemia, not checking any longer, 5. BRBPR 6, UTI 7. Severe malnourishment/cachexia 8. hypothyroid, hypoglycemia History of Present Illness History of Present Illness Seen and examined Timothy tucker DW recenterer and RN Vitals Vitals Vital Signs Date Time Temp Pulse Resp B/P (MAP) Pulse Ox O2 Delivery O2 Flow Rate FiO2 10/09/16 19:00 97.5 91 18 122/80 (94) 90 Room Air 97.5 10/09/16 08:10 2.0 Physical Exam General: Alert, No acute distress, Other (not alert, not responding to qusetions) Heart: Regular rate, Other (TACHY) Lungs: Clear Abdomen: Normal bowel sounds, Soft Extremities: No clubbing, No edema, Normal pulses, No tenderness/swelling Skin: No rashes Review of Systems Review of Systems unreliable Assessment and Plan Assessmemt and Plan Problems Medical Problems: (1) Anemia Status: Acute (2) Encephalopathy acute Status: Acute (3) GI bleed Status: Acute (4) Hyperkalemia Status: Acute (5) Renal failure Status: Acute (6) Septic shock Status: Acute acute metabolic encephalopathy 1. admitted w/ shock needing pressors, improved 2. Acute metabolic acidosis, WILLIAM severe 3. Hyperkalemia with EKG changes 4. Metabolic encephalopathy, hypoglycemia, not checking any longer, 5. BRBPR 6, UTI 7. Severe malnourishment/cachexia 8. hypothyroid, hypoglycemia Plan dc in am with Hospice Problems: Comment Review of Relevant I have reviewed the following items sushant (where applicable) has been applied. Labs Microbiology 10/04/16 Blood Culture - Final, Complete 10/04/16 Blood Culture Result 1 (SHAUN) - Final, Complete 10/04/16 Blood Culture Result 2 (SHAUN) - Final, Complete 10/04/16 Urine Culture - Final, Complete 10/04/16 Urine Culture Result 1 (SHAUN) - Final, Complete 10/04/16 Urine Culture Result 2 (SHAUN) - Final, Complete 10/04/16 Antimicrobic Susceptibility - Final, Complete Medications Current Medications Sodium Chloride 1,000 ml @ 1,000 mls/hr 1X ONCE IV Last administered on 16:55; Start 10/04/16 at 16:45; Stop 10/04/16 at 17:44; Status DC Norepinephrine Bitartrate 250 ml @ 0 mls/hr 1X ONCE IV Last administered on 16:55; Start 10/04/16 at 16:45; Stop 10/04/16 at 16:50; Status DC Piperacillin Sod/ Tazobactam Sod 3.375 gm/Sodium Chloride 50 ml @ 100 mls/hr 1X ONCE IV Last administered on 10/04/16 16:57; Start 10/04/16 at 16:45; Stop 10/04/16 at 17:14; Status DC Vancomycin HCl 250 ml @ 250 mls/hr 1X ONCE IV ; Start 10/04/16 at 17:30; Stop 10/04/16 at 18:29; Status Cancel Albuterol Sulfate (Ventolin Neb Soln) 2.5 mg 1X ONCE NEB Last administered on 10/04/16 17:08; Start 10/04/16 at 17:00; Stop 10/04/16 at 17:01; Status DC Calcium Gluconate (Calcium Gluconate) 1,000 mg 1X ONCE IV Last administered on 10/04/16 16:57; Start 10/04/16 at 17:00; Stop 10/04/16 at 17:01; Status DC Insulin Human Regular (NovoLIN R VIAL) 10 unit 1X ONCE IV Last administered on 10/04/16 16:59; Start 10/04/16 at 17:00; Stop 10/04/16 at 17:01; Status DC Sodium Chloride 1,000 ml @ 1,000 mls/hr 1X ONCE IV Last administered on 17:09; Start 10/04/16 at 17:15; Stop 10/04/16 at 18:14; Status DC Pantoprazole Sodium (Protonix Vial) 40 mg 1X ONCE IVP Last administered on 17:12; Start 10/04/16 at 17:15; Stop 10/04/16 at 17:16; Status DC Sodium Chloride 1,000 ml @ 1,000 mls/hr 1X ONCE IV Last administered on 17:30; Start 10/04/16 at 17:30; Stop 10/04/16 at 18:29; Status DC Sodium Bicarbonate 150 meq/Dextrose 1,150 ml @ 125 mls/hr 1X ONCE IV Last administered on 10/04/16 17:53; Start 10/04/16 at 17:45; Stop 10/05/16 at 02:56 ; Status DC Ondansetron HCl (Zofran) 4 mg PRN Q8HRS PRN IV NAUSEA/VOMITING; Start 10/04/16 at 17:30; Stop 10/04/16 at 18:45; Status DC Ondansetron HCl (Zofran) 4 mg PRN Q6HRS PRN IV NAUSEA/VOMITING; Start 10/04/16 at 18:41; Stop 10/05/16 at 18:40; Status DC Sodium Chloride 1,000 ml @ 50 mls/hr Q20H IV Last administered on 10/05/16 10 :59; Start 10/04/16 at 19:00; Stop 10/06/16 at 10:54; Status DC Heparin Sodium (Porcine) (Heparin Sq) 5,000 unit Q8HRS SQ ; Start 10/04/16 at 22 :00; Stop 10/04/16 at 22:00; Status DC Pantoprazole Sodium (Protonix Vial) 40 mg DAILYAC IVP Last administered on 10/06 07:13; Start 10/05/16 at 07:30; Stop 10/06/16 at 10:54; Status DC Acetaminophen (Tylenol) 500 mg PRN Q6HRS PRN PO MILD PAIN / TEMP; Start at 18:45; Stop 10/06/16 at 10:54; Status DC Piperacillin Sod/ Tazobactam Sod (Zosyn Per Pharmacy) 1 each PRN DAILY PRN MC SEE COMMENTS; Start 10/04/16 at 19:15; Stop 10/06/16 at 10:54; Status DC Piperacillin Sod/ Tazobactam Sod 2.25 gm/Sodium Chloride 50 ml @ 100 mls/hr Q8HRS IV Last administered on 10/06/16 07:08; Start 10/04/16 at 22:00; Stop at 10:54; Status DC Vancomycin HCl 1 gm/Sodium Chloride 250 ml @ 250 mls/hr 1X ONCE IV Last administered on 10/04/16 22:35; Start 10/04/16 at 21:30; Stop 10/04/16 at 22:29 ; Status DC Norepinephrine Bitartrate 250 ml @ 0 mls/hr CONT PRN IV SEE I/O RECORD Last administered on 10/05/16 09:28; Start 10/04/16 at 22:30; Stop 10/06/16 at 10:54 ; Status DC Lactulose 20 gm BID PO ; Start 10/05/16 at 10:00; Stop 10/05/16 at 10:34; Status DC Amino Acids/ Glycerin/ Electrolytes 1,000 ml @ 80 mls/hr [id number] IV Last administered on 10/06/16 00:36; Start 10/05/16 at 12:00; Stop 10/06/16 at 10:54 ; Status DC Morphine Sulfate 4 mg PRN Q1HR PRN IV PAIN Last administered on 10/06/16 15:04 ; Start 10/05/16 at 18:45 Dextrose (Dextrose 50%-Water Syringe) 12.5 gm PRN Q15MIN PRN IV SEE COMMENTS Last administered on 10/06/16 10:30; Start 10/05/16 at 18:45; Stop 10/06/16 at 10:54; Status DC Dextrose 1,000 ml @ 125 mls/hr Q8H IV Last administered on 10/06/16 06:49; Start 10/05/16 at 18:45; Stop 10/06/16 at 10:54; Status DC Lorazepam (Ativan) 1 mg PRN Q2HR PRN PO ANXIETY / AGITATION; Start 10/05/16 at 18:45; Stop 10/06/16 at 10:54; Status DC Scopolamine (Transderm-Scop) 1 patch Q3DAYS TD ; Start 10/05/16 at 19:00; Stop 10/05/16 at 19:11; Status DC Scopolamine (Transderm-Scop) 1 patch PRN Q72HRS PRN TD SECRETIONS, COMFORT; Start 10/05/16 at 19:15 Methylprednisolone Sodium Succinate (SOLU-Medrol 40MG VIAL) 40 mg 1X ONCE IV Last administered on 10/06/16 07:16; Start 10/06/16 at 07:15; Stop 10/06/16 at 07:16; Status DC Lorazepam (Ativan Intensol) 1 mg PRN Q2HR PRN SL ANXIETY / AGITATION; Start at 11:00 Multi-Ingredient Ointment (Analgesic [place]) 1 socorro PRN QID PRN TP MUSCLE PAIN Last administered on 10/08/16t 14:18; Start 10/08/16 at 13:30 Active Scripts Active Reported Cetirizine Hcl 10 Mg Tablet 10 Mg PO DAILY Levocetirizine Dihydrochloride 5 Mg Tablet 5 Mg PO DAILY Omeprazole 20 Mg Capsule.dr 20 Mg PO DAILY Lisinopril 20 Mg Tablet 20 Mg PO DAILY Glipizide Er (Glipizide) 2.5 Mg Tab.er.24 2.5 Mg PO DAILY Benztropine Mesylate 0.5 Mg Tablet 0.5 Mg PO BID Haloperidol 2 Mg Tablet 1 Mg PO DAILY Indapamide 2.5 Mg Tablet 5 Mg PO DAILY Amlodipine Besylate 10 Mg Tablet 1 Tab PO DAILY Vitals/I & O Vital Sign - Last 24 Hours 10/09/16 10/09/16 10/09/16 10/09/16 07:00 08:10 10:44 14:33 Temp 97.7 97.4 97.9 97.7 97.4 97.9 Pulse 59 85 79 Resp 18 16 19 B/P (MAP) 86/50 (62) 116/74 (88) 102/52 (69) Pulse Ox 97 94 O2 Delivery Room Air Room Air Room Air O2 Flow Rate 2.0 10/09/16 19:00 Temp 97.5 97.5 Pulse 91 Resp 18 B/P (MAP) 122/80 (94) Pulse Ox 90 O2 Delivery Room Air Intake and Output 10/08/16 10/08/16 10/09/16 15:00 23:00 07:00 Intake Total 360 ml 960 ml Output Total 700 ml 850 ml Balance 360 ml 260 ml -850 ml Nutrition Consultation Dietary Evaluation: Recommendations by RD: Increase Calorie Intake Comments: continue pleasure feeds per family request Expected Outcomes/Goals: comfort care Malnutrition Findings: Food and Nutrition Intake (Mod: <75% est energy req 7days Food and Nutrition Intake (Sev: <50% est energy req 5days Body Fat Depletion (Non Severe: Mod to Severe Reduced Retail Clerk Strength: N/A Reduced Retail Clerk Strength (Non-Sev: N/A Weight Status: Underweight CASTLE,NIAL K III DO Oct 09, 2016 23:25
[2016-10-10 03:00] VITALS: BP 137/80
--- NOTE | 2016-10-10 08:57 | PDOC ---
PULMONARY PROGRESS NOTES Subjective confused Vitals Vital Signs Date Time Temp Pulse Resp B/P (MAP) Pulse Ox O2 Delivery O2 Flow Rate FiO2 10/10/16 03:00 97.1 88 18 137/80 (99) 90 Room Air 97.1 10/09/16 08:10 2.0 General: No acute distress Lungs: Clear Cardiovascular: S1, S2 Abdomen: Soft Extremities: No Edema Skin: Warm Medications Active Scripts Medications Dose Route/Sig Max Daily Dose Days Date Category Cetirizine Hcl 10 Mg Tablet 10 Mg PO DAILY 10/05/16 Reported Levocetirizine Dihydrochloride 5 Mg Tablet 5 Mg PO DAILY 10/05/16 Reported Omeprazole 20 Mg Capsule.dr 20 Mg PO DAILY 10/05/16 Reported Lisinopril 20 Mg Tablet 20 Mg PO DAILY 10/05/16 Reported Glipizide Er (Glipizide) 2.5 Mg Tab.er.24 2.5 Mg PO DAILY 10/05/16 Reported Benztropine Mesylate 0.5 Mg Tablet 0.5 Mg PO BID 10/05/16 Reported Haloperidol 2 Mg Tablet 1 Mg PO DAILY 10/05/16 Reported Indapamide 2.5 Mg Tablet 5 Mg PO DAILY 09/24/14 Reported Amlodipine Besylate 10 Mg Tablet 1 Tab PO DAILY 09/24/14 Reported Impression . 1. Acute respiratory failure secondary to septic shock. 2. Severe metabolic acidosis with lactic acidosis. This is secondary to a combination of septic shock and acute on chronic renal failure. 3. No definite pneumonia seen on the chest x-ray. 4. Encephalopathy related to septic shock, clinically improving. 5. Acute on chronic renal failure. 6. Anemia. Improved on current labs. Plan . d/c with hospice 1. From a pulmonary standpoint, he is stable, continue nasal cannula. 2. Metabolic acidosis has improved. 3. Follow renal recommendation. no HD 4. Continue broad-spectrum antibiotics. ABBY GRADY MD Oct 10, 2016 08:57
--- NOTE | 2016-10-10 11:06 | PDOC ---
PROGRESS NOTES Chief Complaint Chief Complaint acute metabolic encephalopathy 1. admitted w/ shock needing pressors, improved 2. Acute metabolic acidosis, WILLIAM severe 3. Hyperkalemia with EKG changes 4. Metabolic encephalopathy, hypoglycemia, not checking any longer, 5. BRBPR 6, UTI 7. Severe malnourishment/cachexia 8. hypothyroid, hypoglycemia History of Present Illness History of Present Illness Seen and examined [facility] Care Did dc paperwork Vitals Vitals Vital Signs Date Time Temp Pulse Resp B/P (MAP) Pulse Ox O2 Delivery O2 Flow Rate FiO2 10/10/16 08:00 Room Air 10/10/16 03:00 97.1 88 18 137/80 (99) 90 97.1 10/09/16 08:10 2.0 Physical Exam General: Alert, No acute distress, Other (not alert, not responding to qusetions) Heart: Regular rate, Other (TACHY) Lungs: Clear Abdomen: Normal bowel sounds, Soft Extremities: No clubbing, No edema, Normal pulses, No tenderness/swelling Skin: No rashes Assessment and Plan Assessmemt and Plan Problems Medical Problems: (1) Anemia Status: Acute (2) Encephalopathy acute Status: Acute (3) GI bleed Status: Acute (4) Hyperkalemia Status: Acute (5) Renal failure Status: Acute (6) Septic shock Status: Acute DC with hospice see dictation Total time 31 minutes Problems: Comment Review of Relevant I have reviewed the following items sushant (where applicable) has been applied. Labs Microbiology 10/04/16 Blood Culture - Final, Complete 10/04/16 Blood Culture Result 1 (SHAUN) - Final, Complete 10/04/16 Blood Culture Result 2 (SHAUN) - Final, Complete 10/04/16 Urine Culture - Final, Complete 10/04/16 Urine Culture Result 1 (SHAUN) - Final, Complete 10/04/16 Urine Culture Result 2 (SHAUN) - Final, Complete 10/04/16 Antimicrobic Susceptibility - Final, Complete Medications Current Medications Sodium Chloride 1,000 ml @ 1,000 mls/hr 1X ONCE IV Last administered on 16:55; Start 10/04/16 at 16:45; Stop 10/04/16 at 17:44; Status DC Norepinephrine Bitartrate 250 ml @ 0 mls/hr 1X ONCE IV Last administered on 16:55; Start 10/04/16 at 16:45; Stop 10/04/16 at 16:50; Status DC Piperacillin Sod/ Tazobactam Sod 3.375 gm/Sodium Chloride 50 ml @ 100 mls/hr 1X ONCE IV Last administered on 10/04/16 16:57; Start 10/04/16 at 16:45; Stop 10/04/16 at 17:14; Status DC Vancomycin HCl 250 ml @ 250 mls/hr 1X ONCE IV ; Start 10/04/16 at 17:30; Stop 10/04/16 at 18:29; Status Cancel Albuterol Sulfate (Ventolin Neb Soln) 2.5 mg 1X ONCE NEB Last administered on 10/04/16 17:08; Start 10/04/16 at 17:00; Stop 10/04/16 at 17:01; Status DC Calcium Gluconate (Calcium Gluconate) 1,000 mg 1X ONCE IV Last administered on 10/04/16 16:57; Start 10/04/16 at 17:00; Stop 10/04/16 at 17:01; Status DC Insulin Human Regular (NovoLIN R VIAL) 10 unit 1X ONCE IV Last administered on 10/04/16 16:59; Start 10/04/16 at 17:00; Stop 10/04/16 at 17:01; Status DC Sodium Chloride 1,000 ml @ 1,000 mls/hr 1X ONCE IV Last administered on 17:09; Start 10/04/16 at 17:15; Stop 10/04/16 at 18:14; Status DC Pantoprazole Sodium (Protonix Vial) 40 mg 1X ONCE IVP Last administered on 17:12; Start 10/04/16 at 17:15; Stop 10/04/16 at 17:16; Status DC Sodium Chloride 1,000 ml @ 1,000 mls/hr 1X ONCE IV Last administered on 17:30; Start 10/04/16 at 17:30; Stop 10/04/16 at 18:29; Status DC Sodium Bicarbonate 150 meq/Dextrose 1,150 ml @ 125 mls/hr 1X ONCE IV Last administered on 10/04/16 17:53; Start 10/04/16 at 17:45; Stop 10/05/16 at 02:56 ; Status DC Ondansetron HCl (Zofran) 4 mg PRN Q8HRS PRN IV NAUSEA/VOMITING; Start 10/04/16 at 17:30; Stop 10/04/16 at 18:45; Status DC Ondansetron HCl (Zofran) 4 mg PRN Q6HRS PRN IV NAUSEA/VOMITING; Start 10/04/16 at 18:41; Stop 10/05/16 at 18:40; Status DC Sodium Chloride 1,000 ml @ 50 mls/hr Q20H IV Last administered on 10/05/16 10 :59; Start 10/04/16 at 19:00; Stop 10/06/16 at 10:54; Status DC Heparin Sodium (Porcine) (Heparin Sq) 5,000 unit Q8HRS SQ ; Start 10/04/16 at 22 :00; Stop 10/04/16 at 22:00; Status DC Pantoprazole Sodium (Protonix Vial) 40 mg DAILYAC IVP Last administered on 10/06 07:13; Start 10/05/16 at 07:30; Stop 10/06/16 at 10:54; Status DC Acetaminophen (Tylenol) 500 mg PRN Q6HRS PRN PO MILD PAIN / TEMP; Start at 18:45; Stop 10/06/16 at 10:54; Status DC Piperacillin Sod/ Tazobactam Sod (Zosyn Per Pharmacy) 1 each PRN DAILY PRN MC SEE COMMENTS; Start 10/04/16 at 19:15; Stop 10/06/16 at 10:54; Status DC Piperacillin Sod/ Tazobactam Sod 2.25 gm/Sodium Chloride 50 ml @ 100 mls/hr Q8HRS IV Last administered on 10/06/16 07:08; Start 10/04/16 at 22:00; Stop at 10:54; Status DC Vancomycin HCl 1 gm/Sodium Chloride 250 ml @ 250 mls/hr 1X ONCE IV Last administered on 10/04/16 22:35; Start 10/04/16 at 21:30; Stop 10/04/16 at 22:29 ; Status DC Norepinephrine Bitartrate 250 ml @ 0 mls/hr CONT PRN IV SEE I/O RECORD Last administered on 10/05/16 09:28; Start 10/04/16 at 22:30; Stop 10/06/16 at 10:54 ; Status DC Lactulose 20 gm BID PO ; Start 10/05/16 at 10:00; Stop 10/05/16 at 10:34; Status DC Amino Acids/ Glycerin/ Electrolytes 1,000 ml @ 80 mls/hr [id number] IV Last administered on 10/06/16 00:36; Start 10/05/16 at 12:00; Stop 10/06/16 at 10:54 ; Status DC Morphine Sulfate 4 mg PRN Q1HR PRN IV PAIN Last administered on 10/06/16 15:04 ; Start 10/05/16 at 18:45 Dextrose (Dextrose 50%-Water Syringe) 12.5 gm PRN Q15MIN PRN IV SEE COMMENTS Last administered on 10/06/16 10:30; Start 10/05/16 at 18:45; Stop 10/06/16 at 10:54; Status DC Dextrose 1,000 ml @ 125 mls/hr Q8H IV Last administered on 10/06/16 06:49; Start 10/05/16 at 18:45; Stop 10/06/16 at 10:54; Status DC Lorazepam (Ativan) 1 mg PRN Q2HR PRN PO ANXIETY / AGITATION; Start 10/05/16 at 18:45; Stop 10/06/16 at 10:54; Status DC Scopolamine (Transderm-Scop) 1 patch Q3DAYS TD ; Start 10/05/16 at 19:00; Stop 10/05/16 at 19:11; Status DC Scopolamine (Transderm-Scop) 1 patch PRN Q72HRS PRN TD SECRETIONS, COMFORT; Start 10/05/16 at 19:15 Methylprednisolone Sodium Succinate (SOLU-Medrol 40MG VIAL) 40 mg 1X ONCE IV Last administered on 10/06/16 07:16; Start 10/06/16 at 07:15; Stop 10/06/16 at 07:16; Status DC Lorazepam (Ativan Intensol) 1 mg PRN Q2HR PRN SL ANXIETY / AGITATION; Start at 11:00 Multi-Ingredient Ointment (Analgesic Ambia) 1 socorro PRN QID PRN TP MUSCLE PAIN Last administered on 10/08/16 14:18; Start 10/08/16 at 13:30 Active Scripts Active Reported Cetirizine Hcl 10 Mg Tablet 10 Mg PO DAILY Levocetirizine Dihydrochloride 5 Mg Tablet 5 Mg PO DAILY Omeprazole 20 Mg Capsule.dr 20 Mg PO DAILY Lisinopril 20 Mg Tablet 20 Mg PO DAILY Glipizide Er (Glipizide) 2.5 Mg Tab.er.24 2.5 Mg PO DAILY Benztropine Mesylate 0.5 Mg Tablet 0.5 Mg PO BID Haloperidol 2 Mg Tablet 1 Mg PO DAILY Indapamide 2.5 Mg Tablet 5 Mg PO DAILY Amlodipine Besylate 10 Mg Tablet 1 Tab PO DAILY Vitals/I & O Vital Sign - Last 24 Hours 10/09/16 10/09/16 10/09/16 10/10/16 14:33 19:00 23:00 03:00 Temp 97.9 97.5 97.8 97.1 97.9 97.5 97.8 97.1 Pulse 79 91 50 88 Resp B/P (MAP) 102/52 (69) 122/80 (94) 109/54 (72) 137/80 (99) Pulse Ox 94 90 90 90 O2 Delivery Room Air Room Air Room Air Room Air 10/10/16 08:00 O2 Delivery Room Air Intake and Output 10/09/16 10/09/16 10/10/16 15:00 23:00 07:00 Intake Total 120 ml 120 ml Output Total 900 ml 600 ml Balance 120 ml -900 ml -480 ml Nutrition Consultation Dietary Evaluation: Recommendations by RD: Increase Calorie Intake Comments: continue pleasure feeds per family request Expected Outcomes/Goals: comfort care Malnutrition Findings: Food and Nutrition Intake (Mod: <75% est energy req 7days Food and Nutrition Intake (Sev: <50% est energy req 5days Body Fat Depletion (Non Severe: Mod to Severe Reduced Gas Station Attendant Strength: N/A Reduced Gas Station Attendant Strength (Non-Sev: N/A Weight Status: Underweight CASTLE,NIAL K III DO Oct 10, 2016 11:06
--- NOTE | 2016-10-10 11:37 | PDOC2 ---
PALLIATIVE CARE Palliative Care Note Palliative Care Spoke with Dr. Ward. Orders and scrips written Spoke with Hospice. They can meet patient at 1700 at home. DME Hospital Bed. Delaney ARNETT assisting with Discharge plans LOUIE ELIZONDO Oct 10, 2016 11:37
[2016-10-10 14:44] VITALS: BP 96/64
--- NOTE | 2016-10-10 21:31 | DS ---
DATE OF DISCHARGE: 10/10/2016 ADMISSION DIAGNOSIS: Acute renal failure on chronic renal failure. DISCHARGE DIAGNOSES: Chronic renal failure, metabolic encephalopathy, urinary tract infection, severe malnutrition, hypothyroidism, hypoglycemia, hyperkalemia, chronic EKG changes from electrolyte disturbance, severe azotemia. HOSPITAL COURSE: The patient is a pleasant elderly male who basically has multiple medical issues. He has been developing slow renal failure for sometime. At this time, his BUN and creatinine are extremely high in the 154 and 5.6 range respectively. We consulted Palliative Care. The patient and family want to go home with hospice. DISPOSITION: Home with hospice. ACTIVITY: As tolerated. DIET: Low sodium. MEDICATIONS: Please see the MRAD. TOTAL TIME ON DISCHARGE: 31 minutes. LEROY BRITO DO DR: ARELY/scout JOB#: [id number] / [id number]
== END 2016-10-10 17:10 | disposition hospice, home (50) | DRG 871 ==
LOC: ER 16:32 → 1 WEST ICU 17:32 → 5 SOUTH 10-06 17:29
PROVIDERS: ADMIT Internal Medicine; ATTEND Internal Medicine
PROC: 30233N1 Transfusion of Nonautologous Red Blood Cells into Peripheral Vein, Percutaneous Approach (ICD-10-PCS; principal; 2016-10-04)
DX: A41.9 Sepsis, unspecified organism (principal); R65.21 Severe sepsis with septic shock; G93.41 Metabolic encephalopathy; E43 Unspecified severe protein-calorie malnutrition; J96.00 Acute respiratory failure, unspecified whether with hypoxia or hypercapnia; R57.8 Other shock; N17.9 Acute kidney failure, unspecified; N39.0 Urinary tract infection, site not specified; Z68.1 Body mass index [BMI] 19.9 or less, adult; E72.20 Disorder of urea cycle metabolism, unspecified; K92.2 Gastrointestinal hemorrhage, unspecified; Z51.5 Encounter for palliative care; Z66 Do not resuscitate; E11.22 Type 2 diabetes mellitus with diabetic chronic kidney disease; E03.9 Hypothyroidism, unspecified; E86.0 Dehydration; N18.9 Chronic kidney disease, unspecified; I12.9 Hypertensive chronic kidney disease with stage 1 through stage 4 chronic kidney disease, or unspecified chronic kidney disease; D63.8 Anemia in other chronic diseases classified elsewhere; E11.649 Type 2 diabetes mellitus with hypoglycemia without coma; F03.90 Unspecified dementia, unspecified severity, without behavioral disturbance, psychotic disturbance, mood disturbance, and anxiety; Z96.642 Presence of left artificial hip joint; J44.9 Chronic obstructive pulmonary disease, unspecified; F20.9 Schizophrenia, unspecified; E87.5 Hyperkalemia; H54.0 Blindness, both eyes; K72.90 Hepatic failure, unspecified without coma; Z85.46 Personal history of malignant neoplasm of prostate; Z86.73 Personal history of transient ischemic attack (TIA), and cerebral infarction without residual deficits; Z82.49 Family history of ischemic heart disease and other diseases of the circulatory system
CPT/HCPCS: 36415; 36600; 51701; 70450; 71010; 76700; 80048; 80053; 80329; 81001; 82140; 82274; 82550; 82607; 82746; 82805; 82947; 82962; 83540; 83550; 83605; 83690; 83735; 83880; 84132; 84439; 84443; 84481; 84484; 85007; 85027; 85045; 85610; 85730; 86850; 86900; 86901; 86920; 87040; 87086; 87186; 87205; 87641; 93005; 94640; 96365; 96368; 96375; C9113; G0480; G0481; J0610; J1815; J2270; J2543; J2920; J3370; J7030; J7042; J7050; P9016; 99291-25